=== PATIENT | female | born 1975 | race African-American/Black ===

== ENCOUNTER 2018-08-06 09:58 | Emergency (ER) | payer OTHER ==
[~2018-08-06] VITALS: Ht 172.7 cm; Wt 104.3 kg
--- OUTSIDE RECORDS SUMMARY | 2018-08-06 10:02 | XMS REPORT | Clinical Summary ---
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 Active amLODIPine (NORVASC) 5 mg Take 1 tablet 90 tablet 0 tabletIndications: by mouth 8 Essential hypertension daily. 02/02/2018 Discontinued azelastine (OPTIVAR) 0.05 Instill 1 6 mL 1 % ophthalmic Drop in right 6 solutionIndications: eye 2 times Allergic conjunctivitis daily. and rhinitis, right 02/02/2018 Discontinued ergocalciferol (VITAMIN Take 1 24 capsule 0 D2) 50,000 unit capsule by 7 capsuleIndications: mouth weekly. Vitamin D deficiency 02/02/2018 Discontinued chlorhexidine (PERIDEX) Swish with 473 mL 0 0.12 % mouth 1/2 oz of 7 washIndications: solution in Dentalgia, Dental caries mouth for 30 seconds and spit. Use twice daily.. 02/02/2018 Discontinued ibuprofen (MOTRIN) 800 mg Take 1 tablet 60 tablet 0 tabletIndications: by mouth 7 Dentalgia every 8 hours as needed for Pain or Fever > 100.5. 02/02/2018 Discontinued amoxicillin (AMOXIL) 500 Take 4 16 capsule 0 mg capsuleIndications: capsules by 7 Pulpitis mouth one hour prior to dental appt. 02/02/2018 Discontinued traMADol (ULTRAM) 50 mg Take 1 tablet 15 tablet 0 tabletIndications: by mouth 7 Pulpitis every 6 hours as needed for Pain. 01/16/2018 Discontinued hydroCHLOROthiazide Take 1 90 capsule 0 (MICROZIDE) 12.5 mg capsule by 8 capsuleIndications: mouth every Essential hypertension morning. 05/18/2018 Discontinued metoprolol succinate Take 1 tablet 90 tablet 0 (TOPROL XL) 25 mg by mouth 8 extended release daily. tabletIndications: Essential hypertension, MVP (mitral valve prolapse) 05/18/2018 Discontinued hydroCHLOROthiazide Take 1 tablet 90 tablet 2 (HYDRODIURIL) 25 mg by mouth 8 tabletIndications: daily. Essential hypertension 02/12/2018 ofloxacin (FLOXIN) 0.3 % Instill 5 5 mL 0 otic solutionIndications: Drops in 8 Acute otitis externa of right ear 2 right ear, unspecified times daily type for 10 days. 05/18/2018 Discontinued ibuprofen (MOTRIN) 800 mg Take 1 tablet 30 tablet 0 tabletIndications: by mouth 8 Otalgia of right ear every 8 hours as needed for Pain. 04/07/2018 amoxicillin (AMOXIL) 500 Take 1 30 capsule 0 mg capsuleIndications: capsule by 8 Dentalgia mouth 3 times daily for 10 days. Active Problems Problem Noted Date Mitral valve prolapse 08/17/2016 Varicose vein of leg 08/17/2016 Vitamin D deficiency 08/17/2016 Essential hypertension, benign 08/22/2015 Obesity, Class II, BMI 35-39.9 12/15/2014 HTN (hypertension) 12/15/2014 Encounters Care Team Description Date Type Specialty Raffy De La Garza MD History of pneumonia 05/18/2018 Ancillary Radiology Procedure Raffy De La Garza MD History of pneumonia (Primary Dx); Heart murmur; Essential hypertension; PVC (premature ventricular contraction) 05/18/2018 Office Visit Family Practice 05/18/2018 Travel Claudia Ching PA Dentalgia (Primary Dx) 03/28/2018 Office Visit Family Practice Otoniel Obregon, [employer]OCATIONAL ADVISER Acute otitis externa of right ear, unspecified type (Primary Dx); Otalgia of right ear 02/02/2018 Same Day Family Practice Raffy De La Garza MD Malone, Shanique T, PA Essential hypertension (Primary Dx); Mild anemia; BMI 34.0-34.9,adult 01/30/2018 Office Visit Family Practice Valorie Craven PA History of pulmonary edema 01/16/2018 Ancillary Radiology Procedure Valorie Craven PA Essential hypertension (Primary Dx); Mitral valve prolapse; Varicose veins of leg with pain, right; Screening breast examination; History of pulmonary edema 01/16/2018 Office Visit Family Practice Valorie Craven PA Varicose veins of leg with pain, right 01/16/2018 Orders Only Family Practice 09/25/2017 Emergency Emergency Medicine after 08/05/2017 Immunizations Name Dates Previously Given Next Due Influenza Vac (Fluarix) 05/05/2015 (Deferred: Patient Refused) Influenza Vaccine 03/28/2018 (Deferred: Other) Family History Medical History Relation Name Comments Asthma Daughter Hypertension Father Hypertension Mother Relation Name Status Comments Brother Alive 2 Daughter Alive 1 Daughter Father Alive Mother Alive Sister Alive 3 Sister 1 Son Alive 3 Social History Date Tobacco Use Types Packs/Day Years Used Never Smoker Smokeless Tobacco: Never Used Tobacco Cessation: Counseling Given: No Alcohol Use Drinks/Week oz/Week Comments Yes 0 Standard 0.0 occasional drinks or equivalent Sex Assigned at Date Recorded Not on file Industry Job Start Date Occupation Not on file Not on file Not on file Travel End Travel History Travel Start No recent travel history available. Last Filed Vital Signs Time Taken Vital Sign Reading 05/18/2018 9:53 AM [employer] Blood Pressure 132/87 05/18/2018 9:53 AM [employer] Pulse 62 05/18/2018 9:53 AM [employer] Temperature 36.8 C (98.3 F) 05/18/2018 9:53 AM [employer] Respiratory Rate 18 03/28/2018 9:00 AM [employer] Oxygen Saturation 100% - Inhaled Oxygen - Concentration 05/18/2018 9:53 AM [facility] Weight 103 kg (227 lb) 05/18/2018 9:53 AM [employer] Height 172.7 cm (5' 8") 05/18/2018 9:53 AM [employer] Body Mass Index 34.52 Plan of Treatment Care Team Description Date Type Specialty Raffy De La Garza MD [place], [place] [id number] Patient working in the [facility], has been cough and vomitting 08/10/2018 Office Visit Family Practice 09/29/2018 Appointment Cardiology Health Maintenance Due Date Last Done Comments Breast Cancer Scrn 10/20/2015 10/19/2014, 10/29/2012 (Yearly) Cervical Cancer Scrn (3 10/23/2015 10/22/2012 (Previously completed - Yrs) External), 10/16/2012 Procedures Comments Procedure Name Priority Date/Time Associated Diagnosis XRAY CHEST 2 VIEWS Routine 05/18/2018 History of pneumonia 11:15 AM [employer] XRAY CHEST 2 VIEWS Routine 01/16/2018 History of pulmonary 1:25 PM CDT edema HIV-1/HIV-2 ROUTINE Routine 01/16/2018 Essential hypertension SCREENING 1:16 PM CDT SYPHILIS MONITOR FOR Routine 01/16/2018 Essential hypertension TREATMENT 1:16 PM CDT HEPATITIS PANEL Routine 01/16/2018 Essential hypertension 1:16 PM CDT CBC/DIFF Routine 01/16/2018 Essential hypertension 1:16 PM CDT TSH Routine 01/16/2018 Essential hypertension 1:16 PM CDT COMPREHENSIVE METABOLIC Routine 01/16/2018 Essential hypertension PANEL(DBIL NOT INCLUDED) 1:16 PM CDT LIPID PROFILE Routine 01/16/2018 Essential hypertension 1:16 PM CDT HEMOGLOBIN A1C Routine 01/16/2018 Essential hypertension 1:16 PM CDT B NATRIURETIC PEPT Routine 01/16/2018 Mitral valve prolapse 1:15 PM CDT after 08/05/2017 Results * XRAY CHEST 2 VIEWS (05/18/2018 11:15 AM [employer] [employer]) Only the most recent of 2 results within the time period is included. Impressions Performed At IMPRESSION: [facility] Stable cardiomegaly. Dictated By: Nathanael Abbott MD, 05/18/2018 11:34 AM I have reviewed the study and agree with the findings in this report. Signed By: Kami Sykes MD, 05/18/2018 2:48 PM Narrative Performed At EXAMINATION:XRAY CHEST 2 VIEWS SMS INDICATION: history of pneumonia COMPARISON:Chest radiograph 01/16/2018, chest CT 01/02/2009, chest radiograph 05/04/2009 FINDINGS: TUBES and LINES:None. LUNGS:Lungs are well inflated.Lungs are clear. There is no evidence of pneumonia or pulmonary edema. PLEURA:No pleural effusion or pneumothorax. HEART AND MEDIASTINUM:The cardiomediastinal silhouette is enlarged. BONES AND SOFT TISSUES:No acute osseous lesion. Mild multilevel degenerative changes of the thoracic spine. Soft tissues are unremarkable. UPPER ABDOMEN: No free air under the diaphragm. Procedure Note Interface, Rad/Mammog In - 05/18/2018 2:53 PM [employer] [employer] EXAMINATION: XRAY CHEST 2 VIEWS INDICATION: history of pneumonia COMPARISON: Chest radiograph 01/16/2018, chest CT 01/02/2009, chest radiograph 05/04/2009 FINDINGS: TUBES and LINES: None. LUNGS: Lungs are well inflated. Lungs are clear. There is no evidence of pneumonia or pulmonary edema. PLEURA: No pleural effusion or pneumothorax. HEART AND MEDIASTINUM: The cardiomediastinal silhouette is enlarged. BONES AND SOFT TISSUES: No acute osseous lesion. Mild multilevel degenerative changes of the thoracic spine. Soft tissues are unremarkable. UPPER ABDOMEN: No free air under the diaphragm. IMPRESSION IMPRESSION: Stable cardiomegaly. Dictated By: Nathanael Abbott MD, 05/18/2018 11:34 AM I have reviewed the study and agree with the findings in this report. Signed By: Kami Sykes MD, 05/18/2018 2:48 PM Performing Organization Address City/[facility] Phone Number SMS * HIV-1/HIV-2 ROUTINE SCREENING (01/16/2018 1:16 PM CDT) HIV-1/HIV-2 Negative NEG BT MAIN-STATION 3 Performing Organization Address City/[facility] Services[facility] Phone Number [facility] BT MAIN-STATION 3 * HEMOGLOBIN A1C (01/16/2018 1:16 PM CDT) Hemoglobin A1c 5.5 4.3 - 6.1 % BT DIAGNOSTIC IMMUNOLOGY Est Average 111.2 mg/dL BT DIAGNOSTIC Gluc IMMUNOLOGY Specimen Blood Performing Organization Address [facility] Servicescoks Phone Number MISYS BT DIAGNOSTIC IMMUNOLOGY * COMPREHENSIVE METABOLIC PANEL(DBIL NOT INCLUDED) (01/16/2018 1:16 PM CDT) Albumin 4.6 3.7 - 5.3 g/dL BT MAIN-STATION 1 Calcium 8.9 8.6 - 10.3 mg/dL BT MAIN-STATION 1 CO2 23 21 - 31 mmol/L BT MAIN-STATION 1 Chloride 107 98 - 107 mmol/L BT MAIN-STATION 1 Creatinine 0.80 0.6 - 1.2 mg/dL BT MAIN-STATION 1 Glucose 78 70 - 110 mg/dL BT MAIN-STATION 1 Alk Phos 45 34 - 104 U/L BT MAIN-STATION 1 Potassium 4.7 3.5 - 5.1 mmol/L BT MAIN-STATION 1 Sodium 139 136 - 145 mmol/L BT MAIN-STATION 1 ALT 10 7 - 52 U/L BT MAIN-STATION 1 AST 13 13 - 39 U/L BT MAIN-STATION 1 Urea Nitrogen 9 7 - 25 mg/dL BT MAIN-STATION 1 T Bilirubin 0.7 0.2 - 1.2 mg/dL BT MAIN-STATION 1 T Protein 8.1 6.0 - 8.3 g/dL BT MAIN-STATION 1 GFR, Estimated >60 mL/min/1.73 m2 BT MAIN-STATION 1 GFR, Estim, >60 mL/min/1.73 m2 BT MAIN-STATION Afr-Am 1 Anion Gap 9 BT MAIN-STATION 1 Specimen Blood Performing Organization Address [facility] Phone Number [facility] MAIN-STATION 1 * TSH (01/16/2018 1:16 PM CDT) TSH 2.34 0.57 - 3.74 uIU/mL BT MAIN-STATION 1 Specimen Blood Performing Organization Address [facility] Phone Number [facility] MAIN-STATION 1 * SYPHILIS MONITOR FOR TREATMENT (01/16/2018 1:16 PM CDT) RPR Nonreactive NR Titer BT DIAGNOSTIC IMMUNOLOGY Specimen Blood Performing Organization Address [facility] Phone Number [facility] DIAGNOSTIC IMMUNOLOGY * LIPID PROFILE (01/16/2018 1:16 PM CDT) Cholesterol 183 mg/dL BT MAIN-STATION Comment: 1 REFERENCE RANGE: Desirable: <200 mg/dL Borderline: 200-240 mg/dL High Risk: >240 mg/dL Triglyceride 102 <150 mg/dL BT MAIN-STATION Comment: 1 REFERENCE RANGE: Normal: <150 mg/dL Borderline High: 150-199 mg/dL High: 200-499 mg/dL Very High: >pa=524 mg/dL HDL 67 mg/dL BT MAIN-STATION Comment: 1 Increased CHD risk: <40 mg/dL Decreased CHD risk: >60 mg/dL LDL 96 mg/dL BT MAIN-STATION Comment: 1 REFERENCE RANGE: Optimal: <100 mg/dL Near Optimal: 100-129 mg/dL Borderline High: 130-159 mg/dL High: 160-189 mg/dL Very High: >tp=231 mg/dL Specimen Blood Performing Organization Address [facility] Phone Number [facility] * HEPATITIS PANEL (01/16/2018 1:16 PM CDT) HCV IgG Negative NEG BT MAIN-STATION 3 HBsAg Negative NEG BT MAIN-STATION 3 HAV, IgM Negative NEG BT MAIN-STATION 3 HBcAb, IgM Negative NEG BT MAIN-STATION 3 Specimen Blood Performing Organization Address [facility] Phone Number [facility] * CBC/DIFF (01/16/2018 1:16 PM CDT) WBC 5.3 4.5 - 11.0 K/uL BT MAIN-STATION 2 RBC 4.22 4.20 - 5.40 M/uL BT MAIN-STATION 2 Hemoglobin 11.8 (L) 12.0 - 16.0 g/dL BT MAIN-STATION 2 Hematocrit 38.7 37.0 - 47.0 % BT MAIN-STATION 2 MCV 92 82 - 92 fL BT MAIN-STATION 2 MCH 28.0 27.0 - 32.0 pg BT MAIN-STATION 2 MCHC 30.5 (L) 32.0 - 36.0 g/dL BT MAIN-STATION 2 RDW 45.7 36.4 - 46.3 fL BT MAIN-STATION 2 Platelet 224 150 - 400 K/uL BT MAIN-STATION 2 Mean Platelet 11.7 9.4 - 12.4 fL BT MAIN-STATION Volume 2 Percent NRBC 0.0 BT MAIN-STATION 2 Absolute NRBC 0.00 BT MAIN-STATION 2 Neutrophil 37.8 34.0 - 70.0 % BT MAIN-STATION 2 Lymphocyte 46.3 20.0 - 50.0 % BT MAIN-STATION 2 Monocyte 9.9 5.0 - 12.0 % BT MAIN-STATION 2 Eosinophil 5.1 (H) 0.7 - 5.0 % BT MAIN-STATION 2 Basophil 0.7 0.1 - 1.2 % BT MAIN-STATION 2 Pct Immat Gran 0.2 0.0 - 0.5 BT MAIN-STATION 2 Neutrophil, Abs 2.02 1.56 - 6.13 K/uL BT MAIN-STATION 2 Lymphocyte, Abs 2.47 1.18 - 3.74 K/uL BT MAIN-STATION 2 Monocyte, Abs 0.53 (H) 0.24 - 0.36 K/uL BT MAIN-STATION 2 Eosinophil, Abs 0.27 0.04 - 0.36 K/uL BT MAIN-STATION 2 Basophil, Abs 0.04 0.01 - 0.08 K/uL BT MAIN-STATION 2 Absol Immat 0.01 0.00 - 0.03 K/uL BT MAIN-STATION Gran 2 Specimen Blood Performing Organization Address City/State/Zipcode Phone Number [facility] BT MAIN-STATION 2 * B NATRIURETIC PEPT (01/16/2018 1:15 PM CDT) B Natriuretic 42 <101 pg/mL BT MAIN-STATION Pept 1 Specimen Blood Performing Organization Address City/State/Zipcode Phone Number [facility] BT MAIN-STATION 1 after 08/05/2017 Insurance Type Payer Benefit Subscriber ID Effective Phone Address Plan / Dates Group [employer] PLAN H[employer] PLAN xxxxxx 2017- [phone] [id number] [place] [address]
--- OUTSIDE RECORDS SUMMARY | 2018-08-06 10:03 | XMS REPORT | Continuity of Care Document ---
Author Author [facility] Interface Address Unknown Phone Unavailable Problems Problem Status Onset Date Classification Date Reported Comments Source SOB Active 05/08/2018 [facility] Acute lumbar radiculopathy 09/25/2017 09/28/2017 [facility] RIGHT LEG PAIN Active 09/25/2017 [facility] Hypertensive heart disease with heart failure 07/25/2017 10/22/2017 [facility] CHF, CHEST PAIN Active 07/14/2017 [facility] CP, SOB Active 07/14/2017 [facility] Discharge Diagnosis: Acute head injury 04/28/2017 05/01/2017 [facility] Discharge Diagnosis: Acute headache 04/28/2017 05/01/2017 [facility] HEAD PAIN Active 04/28/2017 [facility] Mitral valve prolapse Active 08/17/2016 06/22/2018 [facility] Varicose vein of leg Active 08/17/2016 06/22/2018 [facility] Vitamin D deficiency Active 08/17/2016 06/22/2018 [facility] Discharge Diagnosis: Dizziness and giddiness 07/05/2016 07/08/2016 [facility] DIZZINESS Active 07/05/2016 [facility] UNSTABLE ANGINA Active 11/09/2015 [facility] VOMITING Active 11/09/2015 [facility] Discharge Diagnosis: Unspecified abdominal pain 09/05/2015 09/08/2015 [facility] RT BACK PAIN Active 09/05/2015 [facility] Essential hypertension, benign Active 08/22/2015 06/22/2018 [facility] Obesity, Class II, BMI 35-39.9 Active 12/15/2014 06/22/2018 [facility] HTN Active 12/15/2014 06/22/2018 [facility] Discharge Diagnosis: Ankle pain, left 02/06/2014 02/08/2014 [facility] LEG PAIN Active 02/06/2014 [facility] SHOULDER PAIN Active 04/19/2013 [facility] HAND INJURY Active 02/05/2013 [facility] LEFT UPPER SIDE PAIN Active 11/04/2012 [facility] ARM PAIN Active 02/11/2012 [facility] CHEST PAIN, SOB Active 01/28/2011 [facility] History of pneumonia Active 06/22/2018 [facility] Heart murmur Active 06/22/2018 [facility] Essential hypertension Active 06/22/2018 [facility] PVC Active 06/22/2018 [facility] Dentalgia Active 06/22/2018 [facility] Acute otitis externa of right ear, unspecified type Active 06/22/2018 [facility] Otalgia of right ear Active 06/22/2018 [facility] Mild anemia Active 06/22/2018 [facility] BMI 34.0-34.9,adult Active 06/22/2018 [facility] History of pulmonary edema Active 06/22/2018 [facility] Varicose veins of leg with pain, right Active 06/22/2018 [facility] Screening breast examination Active 06/22/2018 [facility] MVP Active 06/22/2018 [facility] HTN - Hypertension Resolved Problem 10/22/2017 [facility] Heart failure, unspecified 10/22/2017 [facility] HTN - Hypertension Resolved Problem 02/07/2013 [facility] Mitral valve prolapse Resolved Problem 02/07/2013 [facility] ANGINA PECTORIS, UNSPECIFIED Active [facility] HEART FAILURE, UNSPECIFIED Active [facility] CHEST PAIN, UNSPECIFIED Active [facility] Medications Medication Details Route Status Patient Instructions Ordering Provider Order Date Source amLODIPine (NORVASC) 5 mg tablet Take 1 tablet by mouth daily. Oral Active 05/18/2018 [facility] amoxicillin (AMOXIL) 500 mg capsule Take 1 capsule by mouth 3 times daily for 10 days. Oral No Longer Active 03/28/2018 [facility] traMADol (ULTRAM) 50 mg tablet Take 1 tablet by mouth every 6 hours as needed for Pain. Oral Active 03/28/2018 [facility] ofloxacin (FLOXIN) 0.3 % otic solution Instill 5 Drops in right ear 2 times daily for 10 days. No Longer Active 02/02/2018 [facility] ibuprofen (MOTRIN) 800 mg tablet Take 1 tablet by mouth every 8 hours as needed for Pain. Oral No Longer Active 02/02/2018 [facility] hydroCHLOROthiazide (HYDRODIURIL) 25 mg tablet Take 1 tablet by mouth daily. Oral No Longer Active 01/16/2018 [facility] Diazepam 5 MG Oral Tablet [Valium] 5 mg=1 tab, PO, BID, PRN msk spasm, X 5 day, # 10 tab, 0 Refill(s) Active 09/25/2017 [facility] Acetaminophen 300 MG / Codeine Phosphate 30 MG Oral Tablet [Tylenol with Codeine #3] 1 tab, PO, Q6H, PRN Pain Score 4-6, X 5 day, # 30 tab, 0 Refill(s) Active 09/25/2017 [facility] Motrin 800 mg oral tablet 800 mg=1 tab, PO, Q8H, PRN Pain, Take with food, X 10 day, # 30 tab, 0 Refill(s) Active 09/25/2017 [facility] ketOROLAC 30 mg/mL injectable solution 60 mg, Route: IM, ONCE, Dosing Weight 95.455, kg, Start date: 09/25/17 6:34:00 CDT, Stop date: 09/25/17 6:34:00 CDT Inactive 09/25/2017 [facility] Dexamethasone 10 mg, Route: IM, ONCE, Dosing Weight 95.455, kg, Priority: STAT, Start date: 09/25/17 6:16:00 CDT, Stop date: 09/25/17 6:16:00 CDT Inactive 09/25/2017 [facility] Ketorolac 30 mg, Route: IVP, Drug form: INJ, ONCE, Dosing Weight 95.455, kg, Priority: STAT, Start date: 09/25/17 6:16:00 CDT, Stop date: 09/25/17 6:16:00 CDT Inactive 09/25/2017 [facility] metoprolol succinate (TOPROL XL) 25 mg extended release tablet Take 1 tablet by mouth daily. Oral No Longer Active 07/30/2017 [facility] hydroCHLOROthiazide (MICROZIDE) 12.5 mg capsule Take 1 capsule by mouth every morning. Oral No Longer Active 07/18/2017 [facility] Furosemide 20 MG Oral Tablet [Lasix] 20 mg=1 tab, PO, Daily, # 30 tab, 2 Refill(s), Pharmacy: [facility] [id number] Active 07/16/2017 [facility] Lasix 40 mg, 4 mL, Route: IV, Drug form: INJ, TID, Dosing Weight 96.449, kg, Start date: 07/16/17 13:00:00 [facility], Duration: 30 day, Stop date: 08/15/17 9:00:00 CDTNotes: (Same as: Lasix) MEDICATION WASTE Product Size: 40 mg Product Wasted: ___ mg Inactive 07/16/2017 [facility] Tylenol 650 mg, 2 tab, Route: PO, Drug form: TAB, Q6H, Dosing Weight 96.449, kg, PRN Pain Score 1-3, Start date: 07/16/17 9:56:00 [facility] [place], Duration: 30 day, Stop date: 08/15/17 9:55:00 CDTNotes: Do not exceed 4 gm/day. (Same as: Tylenol) Inactive 07/16/2017 [facility] metoprolol tartrate 25 mg, 1 tab, Route: PO, Drug form: TAB, Q12H, Dosing Weight 96.449, kg, Start date: 07/15/17 9:00:00 [facility] [place], Duration: 30 day, Stop date: 08/13/17 21:00:00 CDTNotes: (Same as: Lopressor) No Longer Active 07/15/2017 [facility] Famotidine 20 MG Oral Tablet 20 mg, 1 tab, Route: PO, Drug form: TAB, BID, Dosing Weight 96.449, kg, Start date: 07/15/17 9:00:00 [facility] [place], Duration: 30 day, Stop date: 08/13/17 17:00:00 CDTNotes: (Same as: Pepcid) No Longer Active 07/15/2017 [facility] Plavix 75 mg, 1 tab, Route: PO, Drug form: TAB, Daily, Dosing Weight 96.449, kg, Start date: 07/15/17 9:00:00 [facility], Duration: 30 day, Stop date: 08/13/17 9:00:00 CDTNotes: (Same As: Plavix) Inactive 07/15/2017 [facility] Aspirin Enteric Coated 325 mg, 1 tab, Route: PO, Drug form: ECTAB, Daily, Dosing Weight 96.449, kg, Start date: 07/15/17 9:00:00 [facility] [place], Duration: 30 day, Stop date: 08/13/17 9:00:00 CDTNotes: (Do Not Crush) Do not crush or chew. No Longer Active 07/15/2017 [facility] Saline Flush 0.9% 10 ml, Route: IVP, Drug Form: INJ, Dosing Weight 96.449, kg, Q12H, Start date: 07/15/17 9:00:00 [facility] [place], Duration: 30 day, Stop date: 08/13/17 21:00:00 CDTNotes: (Same as: BD Posiflush) No Longer Active 07/15/2017 [facility] Aspirin 81 MG Chewable Tablet 81 mg, Route: PO, Drug form: CHEWTAB, Daily, Dosing Weight 96.449, kg, Start date: 07/15/17 9:00:00 [facility] [place], Duration: 30 day, Stop date: 08/13/17 9:00:00 CDT Inactive 07/15/2017 [facility] Lasix 40 mg, 4 mL, Route: IV, Drug form: INJ, Q12H, Dosing Weight 96.449, kg, Start date: 07/15/17 9:00:00 [facility] [place], Duration: 30 day, Stop date: 08/13/17 21:00:00 CDTNotes: (Same as: Lasix) MEDICATION WASTE Product Size: 40 mg Product Wasted: ___ mg No Longer Active 07/15/2017 [facility] morphine Sulfate 6 mg, 3 mL, Route: PO, Drug form: SOLN, Q15Min, PRN Chest Pain, Start date: 07/15/17 7:57:00 [facility], Duration: 2 doses or times, Stop date: 08/14/17 7:56:00 CDTNotes: (Same as:MORPhine Sulfate) No Longer Active 07/15/2017 [facility] Saline Flush 0.9% 10 ml, Route: IVP, Drug Form: INJ, Dosing Weight 96.449, kg, PRN, PRN Line Flush, Start date: 07/15/17 6:52:00 [facility] [place], Duration: 30 day, Stop date: 08/14/17 7:51:00 CDTNotes: (Same as: BD Posiflush) No Longer Active 07/15/2017 [facility] Ondansetron 4 mg, 1 tab, Route: PO, Drug form: TAB, Q8H, Dosing Weight 96.449, kg, PRN Nausea & Vomiting, Start date: 07/15/17 6:52:00 [facility], Duration: 30 day, Stop date: 08/14/17 6:51:00 CDTNotes: (Same as: Zofran) No Longer Active 07/15/2017 [facility] Morphine 2 mg, Route: IVP, Q15Min, Dosing Weight 96.449, kg, PRN Chest Pain, Start date: 07/15/17 6:52:00 [facility] [place], Duration: 2 doses or times, Stop date: Limited # of times Inactive 07/15/2017 [facility] Nitroglycerin 0.4 mg, 1 tab, Route: SL, Drug form: TAB, Q5Min, Dosing Weight 96.449, kg, PRN Chest Pain, Start date: 07/15/17 6:52:00 [facility], Duration: 3 doses or times, Stop date: 08/14/17 6:51:00 CDTNotes: (Same as :Nitroquick, Nitrostat) "Do Not Crush" Sublingual tablet No Longer Active 07/15/2017 [facility] Fentanyl 50 microgram, Route: IV, ONCE, Dosing Weight 95.455, kg, Start date: 07/15/17 6:00:00 [facility], Stop date: 07/15/17 6:00:00 [facility] Inactive 07/15/2017 [facility] Aspirin 81 MG Chewable Tablet 324 mg, Route: PO, Drug form: CHEWTAB, ONCE, Dosing Weight 95.455, kg, Priority: STAT, Start date: 07/15/17 2:44:00 [facility], Stop date: 07/15/17 2:44:00 [facility] Inactive 07/15/2017 [facility] Lasix 40 mg, Route: IVP, Drug form: INJ, ONCE, Dosing Weight 95.455, kg, Priority: STAT, Start date: 07/15/17 2:30:00 [facility] [place], Stop date: 07/15/17 2:30:00 [facility] Inactive 07/15/2017 [facility] Fentanyl 50 microgram, Route: IVP, ONCE, Dosing Weight 95.455, kg, Priority: STAT, Start date: 07/15/17 0:35:00 [facility] [place], Stop date: 07/15/17 0:35:00 [facility] Inactive 07/15/2017 [facility] Acetaminophen 325 MG / butalbital 50 MG / Caffeine 40 MG Oral Tablet [Esgic] 1 tab, PO, Q4H, PRN Pain, Not to exceed more than 6 tablets in 24 hours, X 2 day, # 12 tab, 0 Refill(s) No Longer Active 04/29/2017 [facility] Diflucan 150 mg, 3 tab, Route: PO, Drug form: TAB, ONCE, Dosing Weight 100, kg, Start date: 04/28/17 18:05:00 [facility] [place], Stop date: 04/28/17 18:05:00 CSTNotes: (Same as: Diflucan) Inactive 04/29/2017 [facility] Reglan 10 mg, 2 mL, Route: IVP, Drug form: SOLN, ONCE, Dosing Weight 100, kg, Priority: STAT, Start date: 04/28/17 17:51:00 [facility], Stop date: 04/28/17 17:51:00 CSTNotes: (Same as: Reglan) Inactive 04/28/2017 [facility] NS (Bolus) IV 1,000 mL, 1,000 ml/hr, Infuse Over: 1 hr, Route: IV, 1,000, Drug form: INJ, ONCE, Priority: STAT, Dosing Weight 100 kg, Start date: 04/28/17 17:51:00 [facility] [place], Stop date: 04/28/17 17:51:00 [facility] Inactive 04/28/2017 [facility] ketOROLAC 30 mg/mL injectable solution 30 mg, 1 mL, Route: IV, Drug form: INJ, ONCE, Dosing Weight 100, kg, Start date: 04/28/17 17:51:00 [facility] [place], Stop date: 04/28/17 17:51:00 CSTNotes: (Same as:Toradol) IV bolus must be given >15 seconds. Give IM administration slowly and deeply into the muscle. Not for use > 4 days MEDICATION WASTE Product Size: 30 mg Product Wasted: ___ mg Inactive 04/28/2017 [facility] Benadryl 12.5 mg, 0.25 mL, Route: IVP, Drug form: INJ, ONCE, Dosing Weight 100, kg, Priority: STAT, Start date: 04/28/17 17:51:00 [facility], Stop date: 04/28/17 17:51:00 CSTNotes: (Same as: Benadryl) Inactive 04/28/2017 [facility] amoxicillin (AMOXIL) 500 mg capsule Take 4 capsules by mouth one hour prior to dental appt. No Longer Active 10/21/2016 [facility] traMADol (ULTRAM) 50 mg tablet Take 1 tablet by mouth every 6 hours as needed for Pain. Oral No Longer Active 10/21/2016 [facility] chlorhexidine (PERIDEX) 0.12 % mouth wash Swish with 1/2 oz of solution in mouth for 30 seconds and spit. Use twice daily.. No Longer Active 09/19/2016 [facility] ibuprofen (MOTRIN) 800 mg tablet Take 1 tablet by mouth every 8 hours as needed for Pain or Fever > 100.5. Oral No Longer Active 09/19/2016 [facility] ergocalciferol (VITAMIN D2) 50,000 unit capsule Take 1 capsule by mouth weekly. Oral No Longer Active 08/16/2016 [facility] hydroCHLOROthiazide (MICROZIDE) 12.5 mg capsule Take 1 capsule by mouth every morning. Oral No Longer Active 07/10/2016 [facility] metoprolol succinate (TOPROL XL) 25 mg extended release tablet Take 1 tablet by mouth daily. Oral No Longer Active 07/10/2016 [facility] meclizine 25 mg oral tablet 25 mg=1 tab, PO, TID, PRN for dizziness, X 20 day, # 60 tab, 0 Refill(s) Active 07/06/2016 [facility] Meclizine 50 mg, Route: PO, Drug form: TAB, ONCE, Dosing Weight 100, kg, Priority: STAT, Start date: 07/05/16 17:33:00 [facility] [place], Stop date: 07/05/16 17:33:00 [facility] Inactive 07/05/2016 [facility] Furosemide 40 MG Oral Tablet [Lasix] 20 mg, 1 tab, Route: PO, Drug form: TAB, Daily, Dosing Weight 96.903, kg, Priority: Routine, Start date: 11/11/15 9:00:00 CDT, Duration: 30 day, Stop date: 12/10/15 9:00:00 CDTNotes: (Same as: Lasix) May cause GI upset. Give with food or milk. No Longer Active 11/11/2015 [facility] metoprolol tartrate 25 mg, 1 tab, Route: PO, Drug form: TAB, Q12H, Dosing Weight 96.903, kg, Priority: Routine, Start date: 11/10/15 21:00:00 CDT, Duration: 30 day, Stop date: 12/10/15 9:00:00 CDTNotes: (Same as: Lopressor) Inactive 11/11/2015 [facility] Pepcid 20 mg, 1 tab, Route: PO, Drug form: TAB, BID, Dosing Weight 96.903, kg, Start date: 11/10/15 17:00:00 CDT, Duration: 30 day, Stop date: 12/10/15 9:00:00 CDTNotes: (Same as: Pepcid) Inactive 11/10/2015 [facility] clopidogrel 75 MG Oral Tablet [Plavix] 75 mg=1 tab, PO, Daily, # 30 tab, 0 Refill(s) Active 11/10/2015 [facility] Aspirin Enteric Coated 325 mg oral delayed release tablet 325 mg=1 tab, PO, Daily, # 30 tab, 0 Refill(s) Active 11/10/2015 [facility] metoprolol tartrate 25 mg oral tablet 25 mg=1 tab, PO, Q12H, # 60 tab, 0 Refill(s) Active 11/10/2015 [facility] Furosemide 20 MG Oral Tablet [Lasix] 20 mg=1 tab, PO, Daily, # 30 tab, 0 Refill(s) Active 11/10/2015 [facility] Famotidine 20 MG Oral Tablet 20 mg=1 tab, PO, BID, # 60 tab, 0 Refill(s) Active 11/10/2015 [facility] Lasix 40 mg, 4 mL, Route: IVP, Drug form: INJ, ONCE, Dosing Weight 96.903, kg, Priority: STAT, Start date: 11/10/15 8:43:00 CDT, Stop date: 11/10/15 8:43:00 CDTNotes: (Same as: Lasix) MEDICATION WASTE Product Size: 40 mg Product Wasted: ___ mg Inactive 11/10/2015 [facility] remove patch Route: TOP, Drug form: MISC, Q24H, Start date: 11/10/15 0:00:00 CDT, Duration: 30 day, Stop date: 12/09/15 0:00:00 CDT Inactive 11/10/2015 [facility] Lasix 40 mg, 4 mL, Route: IVP, Drug form: INJ, Daily, Dosing Weight 96.903, kg, Priority: STAT, Start date: 11/09/15 12:20:00 CDT, Duration: 30 day, Stop date: 12/09/15 9:00:00 CDTNotes: (Same as: Lasix) MEDICATION WASTE Product Size: 40 mg Product Wasted: ___ mg No Longer Active 11/09/2015 [facility] Nitroglycerin 0.02 MG/MG Topical Ointment 0.5 inch, Route: TOP, Drug Form: OINT, Dosing Weight 96.903, kg, TID, Start date: 11/09/15 12:00:00 CDT, Duration: 30 day, Stop date: 12/09/15 6:00:00 CDTNotes: 1 gram is approximately 1 inch of nitroglycerin ointment (20 mg NTG per gram) (Same as:Nitro-Bid) Inactive 11/09/2015 [facility] metoprolol extended release 25 mg, 1 tab, Route: PO, Drug form: ERTAB, Daily, Priority: NOW, Start date: 11/09/15 11:06:00 CDT, Duration: 30 day, Stop date: 12/09/15 9:00:00 CDTNotes: (Same as: Toprol XL) Do Not Crush No Longer Active 11/09/2015 [facility] Pepcid 20 mg, 2 mL, Route: IVP, Drug form: INJ, Q12H, Dosing Weight 96.903, kg, Start date: 11/09/15 9:00:00 CDT, Duration: 30 day, Stop date: 12/08/15 21:00:00 CDTNotes: (Same as: Pepcid) Can be dilute in 5-10cc NS IVP: Slow IV push over at least 2 minutes. No Longer Active 11/09/2015 [facility] Saline Flush 0.9% 10 ml, Route: IVP, Drug Form: INJ, Dosing Weight 96.903, kg, Q12H, Start date: 11/09/15 9:00:00 CDT, Duration: 30 day, Stop date: 12/08/15 21:00:00 CDTNotes: Same as: BD Posiflush Sterile No Longer Active 11/09/2015 [facility] Aspirin 325 MG Oral Tablet 325 mg, 1 tab, Route: PO, Drug form: TAB, Daily, Dosing Weight 96.903, kg, Start date: 11/09/15 9:00:00 CDT, Duration: 30 day, Stop date: 12/08/15 9:00:00 CDTNotes: Take with food. No Longer Active 11/09/2015 [facility] Tylenol 650 mg, 2 tab, Route: PO, Drug form: TAB, Q6H, Dosing Weight 96.903, kg, PRN Pain Score 1-3, Start date: 11/09/15 8:14:00 CDT, Duration: 30 day, Stop date: 12/09/15 8:13:00 CDTNotes: Do not exceed 4 gm/day. (Same as: Tylenol) No Longer Active 11/09/2015 [facility] Zofran 4 mg, 1 tab, Route: PO, Drug form: TAB, Q8H, Dosing Weight 96.903, kg, PRN Nausea, Start date: 11/09/15 8:13:00 CDT, Duration: 30 day, Stop date: 12/09/15 8:12:00 CDTNotes: (Same as: Zofran) No Longer Active 11/09/2015 [facility] Zofran 4 mg, 2 mL, Route: IV, Drug form: INJ, Q8H, Dosing Weight 96.903, kg, PRN Nausea, Priority: NOW, Start date: 11/09/15 8:11:00 CDT, Duration: 30 day, Stop date: 12/09/15 8:10:00 CDTNotes: (Same as: Zofran) MEDICATION WASTE Product Size: 4 mg Product Wasted: ___ mg No Longer Active 11/09/2015 [facility] Saline Flush 0.9% 10 ml, Route: IVP, Drug Form: INJ, Dosing Weight 96.903, kg, PRN, PRN Line Flush, Start date: 11/09/15 8:03:00 CDT, Duration: 30 day, Stop date: 12/09/15 8:02:00 CDT Inactive 11/09/2015 [facility] Ondansetron 4 mg, 1 tab, Route: PO, Drug form: TAB, Q8H, Dosing Weight 96.903, kg, PRN Nausea & Vomiting, Start date: 11/09/15 8:03:00 CDT, Duration: 30 day, Stop date: 12/09/15 8:02:00 CDTNotes: (Same as: Zofran) Inactive 11/09/2015 [facility] Temazepam 15 mg, 1 cap, Route: PO, Drug form: CAP, Bedtime, Dosing Weight 96.903, kg, PRN Insomnia, Start date: 11/09/15 8:03:00 CDT, Duration: 30 day, Stop date: 12/09/15 8:02:00 CDTNotes: (Same As: Restoril) No Longer Active 11/09/2015 [facility] Acetaminophen 650 mg, 2 tab, Route: PO, Drug form: TAB, Q4H, Dosing Weight 96.903, kg, PRN Headache 1-5, Start date: 11/09/15 8:03:00 CDT, Duration: 30 day, Stop date: 12/09/15 8:02:00 CDTNotes: Do not exceed 4 gm /day. (Same as: Tylenol) No Longer Active 11/09/2015 [facility] Nitroglycerin 0.4 mg, 1 tab, Route: SL, Drug form: TAB, Q5Min, Dosing Weight 96.903, kg, PRN Chest Pain, Start date: 11/09/15 8:03:00 CDT, Duration: 3 doses or times, Stop date: Limited # of timesNotes: (Same as:N itroquick, Nitrostat) "Do Not Crush" Sublingual tablet Inactive 11/09/2015 [facility] Morphine 4 mg, 2 mL, Route: IVP, Drug form: INJ, Q2H, Dosing Weight 96.903, kg, PRN Pain Score 7-10, Start date: 11/09/15 8:03:00 CDT, Duration: 30 day, Stop date: 12/09/15 8:02:00 CDTNotes: (Same as:MORPhine Sulfate) No Longer Active 11/09/2015 [facility] Famotidine 20 mg, Route: IVP, ONCE, Dosing Weight 104.545, kg, Priority: STAT, Start date: 11/09/15 5:39:00 CDT, Stop date: 11/09/15 5:39:00 CDT Inactive 11/09/2015 [facility] Heparin - one time bolus for ACS 4,000 unit, Route: IV, Drug form: SOLN, ONCE, Dosing Weight 104.545, kg, Priority: STAT, Start date: 11/09/15 5:37:00 CDT, Stop date: 11/09/15 5:37:00 CDT Inactive 11/09/2015 [facility] Nitroglycerin 0.02 MG/MG Topical Ointment 1 inch, Route: TOP, Drug Form: OINT, Dosing Weight 104.545, kg, ONCE, STAT, Start date: 11/09/15 2:44:00 CDT, Stop date: 11/09/15 2:44:00 CDTNotes: 1 gram is approximately 1 inch of nitroglycerin ointment (20 mg NTG per gram) (Same as:Nitro-Bid) Inactive 11/09/2015 [facility] Aspirin 325 MG Oral Tablet 325 mg, 1 tab, Route: PO, Drug form: TAB, ONCE, Dosing Weight 104.545, kg, Priority: STAT, Start date: 11/09/15 2:43:00 CDT, Stop date: 11/09/15 2:43:00 CDTNotes: Take with food. Inactive 11/09/2015 [facility] Morphine 4 mg, 2 mL, Route: IVP, Drug form: INJ, ONCE, Dosing Weight 104.545, kg, Priority: STAT, Start date: 11/09/15 2:35:00 CDT, Stop date: 11/09/15 2:35:00 CDTNotes: (Same as:MORPhine Sulfate) Inactive 11/09/2015 [facility] Ondansetron 8 mg, 4 mL, Route: IVP, Drug form: INJ, ONCE, Dosing Weight 104.545, kg, Priority: STAT, Start date: 11/09/15 2:35:00 CDT, Stop date: 11/09/15 2:35:00 CDTNotes: (Same as: Janelfrrickie) MEDICATION WASTE Product Size: 4 mg Product Wasted: ___ mg Inactive 11/09/2015 [facility] Saline Flush 0.9% 10 mL, Route: IVP, Drug Form: INJ, Dosing Weight 104.545, kg, PRN, PRN Line Flush, Start date: 11/09/15 2:35:00 CDT, Duration: 30 day, Stop date: 12/09/15 2:34:00 CDTNotes: (Same as: BD Posiflush) No Longer Active 11/09/2015 [facility] Sodium Chloride 0.154 MEQ/ML Injectable Solution 1,000 mL, 2,000 ml/hr, Infuse Over: 30 minutes, Route: IV, 1,000, Drug form: INJ, ONCE, Priority: STAT, Dosing Weight 104.545 kg, Start date: 11/09/15 2:35:00 CDT, Duration: 1 doses or times, Stop date: 11/09/15 2:35:00 CDT Inactive 11/09/2015 [facility] Ondansetron 4 MG Disintegrating Tablet [Zofran] 4 mg=1 tab, PO, BID, PRN Nausea and Vomiting, Dissolve tab under tongue, X 4 day, # 8 tab, 0 Refill(s) Active 09/05/2015 [facility] Acetaminophen 300 MG / Codeine Phosphate 30 MG Oral Tablet [Tylenol with Codeine #3] 1 - 2 tab, PO, Q4H, PRN Pain, X 5 day, # 24 tab, 0 Refill(s) Active 09/05/2015 [facility] Dilaudid 0.5 mg, Route: IVP, ONCE, Dosing Weight 104.545, kg, Priority: STAT, Start date: 09/05/15 15:12:00 CDT, Stop date: 09/05/15 15:12:00 CDT Inactive 09/05/2015 [facility] Sodium Chloride 0.154 MEQ/ML Injectable Solution 1,000 mL, 1,000 ml/hr, Infuse Over: 1 hr, Route: IV, ONCE, Priority: STAT, Dosing Weight 104.545 kg, Start date: 09/05/15 13:55:00 CDT, Duration: 1 doses or times, Stop date: 09/05/15 13:55:00 CDT Inactive 09/05/2015 [facility] Morphine 4 mg, Route: IVP, ONCE, Dosing Weight 104.545, kg, Start date: 09/05/15 13:55:00 CDT, Stop date: 09/05/15 13:55:00 CDT Inactive 09/05/2015 [facility] Zofran 4 mg, Route: IVP, Drug form: INJ, ONCE, Dosing Weight 104.545, kg, Priority: STAT, Start date: 09/05/15 13:55:00 CDT, Stop date: 09/05/15 13:55:00 CDT Inactive 09/05/2015 [facility] Saline Flush 0.9% 10 mL, Route: IVP, Drug Form: INJ, Dosing Weight 104.545, kg, PRN, PRN Line Flush, Start date: 09/05/15 12:43:00 CDT, Duration: 30 day, Stop date: 10/05/15 12:42:00 CDTNotes: (Same as: BD Posiflush) Inactive 09/05/2015 [facility] azelastine (OPTIVAR) 0.05 % ophthalmic solution Instill 1 Drop in right eye 2 times daily. No Longer Active 06/07/2015 [facility] ibuprofen 800 mg oral tablet 800 mg, PO, Q8H, Pain, Take with food, # 30 tab, 0 Refill(s)Special Instructions: Take with food Active 02/06/2014 [facility] Ketorolac 60 mg, Route: IM, Drug form: INJ, ONCE, Dosing Weight 104.545, kg, Priority: STAT, Start date: 02/06/14 13:30:00, Stop date: 02/06/14 13:30:00 Inactive 02/06/2014 [facility] Acetaminophen 325 MG / Hydrocodone Bitartrate 10 MG Oral Tablet 1 tab, Route: PO, Dosing Weight 104.545, kg, ONCE, STAT, Start date: 02/06/14 13:30:00, Stop date: 02/06/14 13:30:00 Inactive 02/06/2014 [facility] Flexeril 10 mg oral tablet 10 mg, PO, TID, Muscle Spasm, # 30 tab, 0 Refill(s) Active Short 04/22/2013 [facility] Ultram 50 mg oral tablet 1 - 2 tabs, PO, Q6H, as needed for pain, # 30 tab, 0 Refill(s) Active Short 04/22/2013 [facility] Ultram 50 mg oral tablet 100 mg, Route: PO, Drug form: TAB, ONCE, Dosing Weight 104.545, kg, Priority: STAT, Start date: 04/21/13 19:55:00, Stop date: 04/21/13 19:55:00 Inactive Short 04/22/2013 [facility] Flexeril 10 mg, Route: PO, ONCE, Dosing Weight 104.545, kg, Priority: STAT, Start date: 04/21/13 19:55:00, Stop date: 04/21/13 19:55:00 Inactive Short 04/22/2013 [facility] ibuprofen 600 mg oral tablet 600 mg, PO, Q6H, PRN, Take with food, 30 tab, Pain, Substitution AllowedTake with food PO Active [facility]al[facility]Johana 02/05/2013 [facility] Jber 5/325 oral tablet 1-2 tab, PO, Q4-6H, PRN, 30 tab, Pain, Substitution Allowed, Maintenance PO Active [facility]Joh[facility] 02/05/2013 [facility] Jber 5/325 oral tablet 1 tab, Route: PO, Drug Form: TAB, Dosing Weight 104.545, kg, ONCE, Start date: 02/05/13 9:18:00, Stop date: 02/05/13 9:18:00 [facility] Cipro 500 mg oral tablet 500 mg, 1 tab, PO, Q12H, 28 tab, Substitution Allowed, TAB PO Active 11/06/2012 [facility] Flomax 0.4 mg oral capsule 0.4 mg, 1 cap, PO, Daily, 30 cap, Substitution Allowed, CAP PO Active [place] 11/06/2012 [facility] Jber 5/325 oral tablet 1-2 tab, PO, Q4-6H, PRN, 15 tab, Pain, Substitution Allowed, Maintenance PO Active [place] 11/06/2012 [facility] ondansetron 4 mg, Route: IVP, Drug form: INJ, ONCE, Dosing Weight 104.545, kg, Priority: STAT, Start date: 11/06/12 0:31:00, Stop date: 11/06/12 0:31:00 IVP No Longer Active [place] 11/06/2012 [facility] morphine Sulfate 4 mg, Route: IVP, Drug form: INJ, ONCE, Dosing Weight 104.545, kg, Priority: STAT, Start date: 11/06/12 0:31:00, Stop date: 11/06/12 0:31:00 IVP No Longer Active [place] 11/06/2012 [facility] Jber 5/325 oral tablet 1-2 tab, PO, Q4-6H, PRN, 15 tab, Pain, Substitution Allowed, Maintenance PO Active Pereyra 02/11/2012 [facility] diclofenac topical 1% gel 1 appl, TOP, QID, PRN, 100 gm, for pain, Substitution Allowed, GEL TOP Active Pereyra 02/11/2012 [facility] Flexeril 10 mg oral tablet 10 mg, PO, TID, PRN, 30 tab, Muscle Spasm, Substitution Allowed PO Active Pereyra 02/11/2012 [facility] ketorolac 60 mg, Route: IM, ONCE, Dosing Weight 90.909, kg, Priority: STAT, Start date: 02/11/12 18:19:00, Stop date: 02/11/12 18:19:00 IM No Longer Active Pereyra 02/11/2012 [facility] ibuprofen 800 mg oral tablet 800 mg, PO, Q8H, PRN, 30 tab, Pain, Substitution Allowed, Take with foodTake with food PO Active [facility] 01/30/2011 [facility] aspirin 324 mg, Route: CHEW, Drug form: CHEWTAB, ONCE, Priority: STAT, Start date: 01/30/11 3:28:00, Stop date: 01/30/11 3:28:00 CHEW No Longer Active [facility] 01/30/2011 [facility] Allergies, Adverse Reactions, Alerts Substance Category Reaction Severity Reaction type Status Date Reported Comments Source Immunizations Immunization Date Given Site Status Last Updated Comments Source Influenza Vaccine 03/28/2018 Not Given Deferred: Other [facility] Influenza Vac (Fluarix) 05/05/2015 Not Given Deferred: Patient Refused [facility] Results Order Name Results Value Reference Range Date Interpretation Comments Source XRAY CHEST 2 VIEWS IMPRESSION: Stable cardiomegaly. Dictated By: Nathanael Abbott MD, 05/18/2018 11:34 AM I have reviewed the study and agree with the findings in this report. Signed By: Kami Sykes MD, 05/18/2018 2:48 PM EXAMINATION:XRAY CHEST 2 VIEWS INDICATION: history of pneumonia COMPARISON:Chest radiograph 01/16/2018, [...] ABDOMEN: No free air under the diaphragm. Interface, Rad/Mammog In - 05/18/2018 2:53 PM [facility] EXAMINATION: XRAY CHEST 2 VIEWS INDICATION: history [...] By: Kami Sykes MD, 05/18/2018 2:48 PM 05/18/2018 [facility] Chest 2 views DX Chest 2 views DX Clinical Indication: Cough and fever - sob. Comparison: Two-view chest 07/14/2017 Findings: Frontal and lateral views of the chest obtained. The cardiac silhouette is at the upper limits of normal in size. There are bilateral, right greater than left perihilar airspace opacities. No pneumothorax. No acute osseous abnormality. IMPRESSION: Bilateral perihilar airspace opacities may be related to multifocal pneumonia, edema or ARDS. SL: [id number] 05/08/2018 - - Read by: Isabel Reyes MD Dictated Date/time: 05/08/18 20:30 Electronically Signed by: Isabel Reyes MD 05/08/18 20:31 FINAL REPORT [facility] B NATRIURETIC PEPT B Natriuretic Pept 42 pg/mL <101 01/20/2018 [facility] HEMOGLOBIN A1C Hemoglobin A1c 5.5 % 4.3 - 6.1 01/17/2018 [facility] HEMOGLOBIN A1C Est Average Gluc 111.2 mg/dL 01/17/2018 [facility] COMPREHENSIVE METABOLIC PANEL(DBIL NOT INCLUDED) Albumin 4.6 g/dL 3.7 - 5.3 01/17/2018 [facility] COMPREHENSIVE METABOLIC PANEL(DBIL NOT INCLUDED) Calcium 8.9 mg/dL 8.6 - 10.3 01/17/2018 [facility] COMPREHENSIVE METABOLIC PANEL(DBIL NOT INCLUDED) CO2 23 mmol/L 21 - 31 01/17/2018 [facility] COMPREHENSIVE METABOLIC PANEL(DBIL NOT INCLUDED) Chloride 107 mmol/L 98 - 107 01/17/2018 [facility] COMPREHENSIVE METABOLIC PANEL(DBIL NOT INCLUDED) Creatinine 0.80 mg/dL 0.6 - 1.2 01/17/2018 [facility] COMPREHENSIVE METABOLIC PANEL(DBIL NOT INCLUDED) Glucose 78 mg/dL 70 - 110 01/17/2018 [facility] COMPREHENSIVE METABOLIC PANEL(DBIL NOT INCLUDED) Alk Phos 45 U/L 34 - 104 01/17/2018 [facility] COMPREHENSIVE METABOLIC PANEL(DBIL NOT INCLUDED) Potassium 4.7 mmol/L 3.5 - 5.1 01/17/2018 [facility] COMPREHENSIVE METABOLIC PANEL(DBIL NOT INCLUDED) Sodium 139 mmol/L 136 - 145 01/17/2018 [facility] COMPREHENSIVE METABOLIC PANEL(DBIL NOT INCLUDED) ALT 10 U/L 7 - 52 01/17/2018 [facility] COMPREHENSIVE METABOLIC PANEL(DBIL NOT INCLUDED) AST 13 U/L 13 - 39 01/17/2018 [facility] COMPREHENSIVE METABOLIC PANEL(DBIL NOT INCLUDED) Urea Nitrogen 9 mg/dL 7 - 25 01/17/2018 [facility] COMPREHENSIVE METABOLIC PANEL(DBIL NOT INCLUDED) T Bilirubin 0.7 mg/dL 0.2 - 1.2 01/17/2018 [facility] COMPREHENSIVE METABOLIC PANEL(DBIL NOT INCLUDED) T Protein 8.1 g/dL 6 - 8.3 01/17/2018 [facility] COMPREHENSIVE METABOLIC PANEL(DBIL NOT INCLUDED) GFR, Estimated >60 mL/min/1.73 m2 01/17/2018 [facility] COMPREHENSIVE METABOLIC PANEL(DBIL NOT INCLUDED) GFR, Estim, Afr-Am >60 mL/min/1.73 m2 01/17/2018 [facility] COMPREHENSIVE METABOLIC PANEL(DBIL NOT INCLUDED) Anion Gap 9 01/17/2018 [facility] LIPID PROFILE Cholesterol 183 mg/dL 01/17/2018 REFERENCE RANGE: Desirable: <200 mg/dL Borderline: 200-240 mg/dL High Risk: >240 mg/dL [facility] LIPID PROFILE Triglyceride 102 mg/dL <150 01/17/2018 REFERENCE RANGE: Normal: <150 mg/dL Borderline High: 150-199 mg/dL High: 200-499 mg/dL Very High: >qi=233 mg/dL [facility] LIPID PROFILE HDL 67 mg/dL 01/17/2018 Increased CHD risk: <40 mg/dL Decreased CHD risk: >60 mg/dL [facility] LIPID PROFILE LDL 96 mg/dL 01/17/2018 REFERENCE RANGE: Optimal: <100 mg/dL Near Optimal: 100-129 mg/dL Borderline High: 130-159 mg/dL High: 160-189 mg/dL Very High: >ty=877 mg/dL [facility] SYPHILIS MONITOR FOR TREATMENT RPR Nonreactive NR Titer 01/17/2018 [facility] HEPATITIS PANEL HCV IgG Negative NEG 01/17/2018 [facility] HEPATITIS PANEL HBsAg Negative NEG 01/17/2018 [facility] HEPATITIS PANEL HAV, IgM Negative NEG 01/17/2018 [facility] HEPATITIS PANEL HBcAb, IgM Negative NEG 01/17/2018 [facility] HIV-1/HIV-2 ROUTINE SCREENING HIV-1/HIV-2 Negative NEG 01/17/2018 [facility] CBC/DIFF WBC 5.3 K/uL 4.5 - 11 01/17/2018 [facility] CBC/DIFF RBC 4.22 4.20 - 5.40 01/17/2018 [facility] CBC/DIFF Hemoglobin 11.8 g/dL 12 - 16 01/17/2018 [facility] CBC/DIFF Hematocrit 38.7 % 37 - 47 01/17/2018 [facility] CBC/DIFF MCV 92 fL 82 - 92 01/17/2018 [facility] CBC/DIFF MCH 28.0 pg 27 - 32 01/17/2018 [facility] CBC/DIFF MCHC 30.5 g/dL 32 - 36 01/17/2018 [facility] CBC/DIFF RDW 45.7 fL 36.4 - 46.3 01/17/2018 [facility] CBC/DIFF Platelet 224 K/uL 150 - 400 01/17/2018 [facility] CBC/DIFF Mean Platelet Volume 11.7 fL 9.4 - 12.4 01/17/2018 [facility] CBC/DIFF Percent NRBC 0.0 01/17/2018 [facility] CBC/DIFF Absolute NRBC 0.00 01/17/2018 [facility] CBC/DIFF Neutrophil 37.8 % 34 - 70 01/17/2018 [facility] CBC/DIFF Lymphocyte 46.3 % 20 - 50 01/17/2018 [facility] CBC/DIFF Monocyte 9.9 % 5 - 12 01/17/2018 [facility] CBC/DIFF Eosinophil 5.1 % 0.7 - 5 01/17/2018 [facility] CBC/DIFF Basophil 0.7 % 0.1 - 1.2 01/17/2018 [facility] CBC/DIFF Pct Immat Gran 0.2 0.0 - 0.5 01/17/2018 [facility] CBC/DIFF Neutrophil, Abs 2.02 K/uL 1.56 - 6.13 01/17/2018 [facility] CBC/DIFF Lymphocyte, Abs 2.47 K/uL 1.18 - 3.74 01/17/2018 [facility] CBC/DIFF Monocyte, Abs 0.53 K/uL 0.24 - 0.36 01/17/2018 [facility] CBC/DIFF Eosinophil, Abs 0.27 K/uL 0.04 - 0.36 01/17/2018 [facility] CBC/DIFF Basophil, Abs 0.04 K/uL 0.01 - 0.08 01/17/2018 [facility] CBC/DIFF Absol Immat Gran 0.01 K/uL 0 - 0.03 01/17/2018 [facility] CBC/DIFF Lab Interpretation Abnormal 01/17/2018 [facility] TSH TSH 2.34 0.57 - 3.74 01/17/2018 [facility] URINE CHEM U Preg Negative (09/25/17 6:22 AM) Negative 09/25/2017 [facility] Hip 2/3 views uni w pelvis DX Hip 2/3 views uni w pelvis DX Exam: Right Hip 2/3 views uni w pelvis DX Clinical Indication: Pain of unknown origin - pain. Right hip pain radiating down the right leg Comparison: None FINDINGS: Two views of the right hip were obtained. There is no fracture. No dislocation. The acetabulum is unremarkable. The regional soft tissues are normal. There are no radio-opaque foreign bodies. There are calcified phleboliths in the pelvis. If there is further concern, recommend follow-up radiographs or MRI for complete assessment. IMPRESSION: No fracture or dislocation. SL: [id number] 09/25/2017 - - Read by: Isabel Reyes MD Dictated Date/time: 09/25/17 07:02 Electronically Signed by: Isabel Reyes MD 09/25/17 07:03 FINAL REPORT [facility] Spine lumbar 2 or 3 views DX Spine lumbar 2 or 3 views DX Clinical Indication: Trauma - pain. Right hip pain radiating down the right leg Comparison: None FINDINGS: AP, lateral, and spot views of the lumbar spine. Vertebral body heights are maintained without fracture. No spondylolisthesis. Alignment is normal. There is severe disc space narrowing at L5-S1 with osseous ridging. There is facet arthropathy at L5-S1. There is calcification of an iliolumbar ligament at L5 on the left.. The paraspinal soft tissues are unremarkable. If there is further concern or neurological abnormalities on clinical exam, MRI or CT of the lumbar spine may be performed for complete assessment. IMPRESSION: Moderate to severe degenerative change at the lumbosacral junction. SL: [id number] 09/25/2017 - - Read by: Isabel Reyes MD Dictated Date/time: 09/25/17 07:00 Electronically Signed by: Isabel Reyes MD 09/25/17 07:02 FINAL REPORT [facility] CARDIAC ENZYMES Total CK 184 unit/L 12 - 191 07/15/2017 [facility] CARDIAC ENZYMES Troponin-I 0.07 ng/mL 0.00 - 0.40 07/15/2017 [facility] CARDIAC ENZYMES CK MB Index 0.5 0.0 - 2.5 07/15/2017 [facility] CARDIAC ENZYMES CK MB 1.0 ng/mL 0.5 - 3.6 07/15/2017 [facility] DRUG SCREEN UDS Note See Note (07/15/17 9:26 AM) 07/15/2017 [facility] DRUG SCREEN U Phencyc Scr Negative *NA* (07/15/17 9:26 AM) Negative 07/15/2017 [facility] DRUG SCREEN U Opiate Scr Negative *NA* (07/15/17 9:26 AM) Negative 07/15/2017 [facility] DRUG SCREEN U Cocaine Scr Negative *NA* (07/15/17 9:26 AM) Negative 07/15/2017 [facility] DRUG SCREEN U Cannab Scr Negative *NA* (07/15/17 9:26 AM) Negative 07/15/2017 [facility] DRUG SCREEN U Nayeli Scr Negative *NA* (07/15/17 9:26 AM) Negative 07/15/2017 [facility] DRUG SCREEN U Amph Scr Negative *NA* (07/15/17 9:26 AM) Negative 07/15/2017 [facility] DRUG SCREEN U Benzodia Scr Negative *NA* (07/15/17 9:26 AM) Negative 07/15/2017 [facility] CARDIAC ENZYMES CK MB 2.0 ng/mL 0.5 - 3.6 07/15/2017 [facility] CARDIAC ENZYMES CK MB Index 1.0 0.0 - 2.5 07/15/2017 [facility] CARDIAC ENZYMES Total CK 196 unit/L 12 - 191 07/15/2017 [facility] CARDIAC ENZYMES Troponin-I 0.09 ng/mL 0.00 - 0.40 07/15/2017 [facility] CHEM PANEL Albumin Lvl 3.6 g/dL 3.5 - 5.0 07/15/2017 [facility] CHEM PANEL Bili Direct 0.2 mg/dL 0.0 - 0.3 07/15/2017 [facility] CHEM PANEL Bili Indirect 0.8 mg/dL 0.0 - 1.0 07/15/2017 [facility] CHEM PANEL Globulin 3.9 g/dL 2.7 - 4.2 07/15/2017 [facility] CHEM PANEL A/G Ratio 0.9 0.7 - 1.6 07/15/2017 [facility] CHEM PANEL Alk Phos 46 unit/L 39 - 136 07/15/2017 [facility] CHEM PANEL Bili Total 1.0 mg/dL 0.2 - 1.3 07/15/2017 [facility] CHEM PANEL ALT 11 unit/L 0 - 65 07/15/2017 [facility] CHEM PANEL AST 11 unit/L 0 - 37 07/15/2017 [facility] CHEM PANEL Total Protein 7.5 g/dL 6.4 - 8.4 07/15/2017 [facility] ELECTROLYTES AGAP 16.8 meq/L 10.0 - 20.0 07/15/2017 [facility] ELECTROLYTES eGFR 101 mL/min/1.73m2 07/15/2017 Result Comment: The eGFR is calculated using the CKD-EPI formula. In most young, healthy individuals the eGFR will be >90 mL/min/1.73m2. The eGFR declines with age. An eGFR of 60-89 may be normal in some populations, particularly the elderly, for whom the CKD-EPI formula has not been extensively validated. Use of the eGFR is not recommended in the following populations: Individuals with unstable creatinine concentrations, including patients and those with serious co-morbid conditions. Patients with extremes in muscle mass or diet. The data above are obtained from the National Kidney Disease Education Program (NKDEP) which additionally recommends that when the eGFR is used in patients with extremes of body mass index for purposes of drug dosing, the eGFR should be multiplied by the estimated BMI. [facility] ELECTROLYTES CO2 22 meq/L 24 - 32 07/15/2017 [facility] ELECTROLYTES Calcium Lvl 8.1 mg/dL 8.5 - 10.5 07/15/2017 [facility] ELECTROLYTES Glucose Lvl 99 mg/dL 70 - 99 07/15/2017 [facility] ELECTROLYTES BUN 9 mg/dL 7 - 22 07/15/2017 [facility] ELECTROLYTES Creatinine Lvl 0.82 mg/dL 0.50 - 1.40 07/15/2017 [facility] ELECTROLYTES Sodium Lvl 142 meq/L 135 - 145 07/15/2017 [facility] ELECTROLYTES Potassium Lvl 3.8 meq/L 3.5 - 5.1 07/15/2017 [facility] ELECTROLYTES Chloride Lvl 107 meq/L 95 - 109 07/15/2017 [facility] HEMATOLOGY MCH 29.5 pg 27.0 - 31.0 07/15/2017 [facility] HEMATOLOGY Hct 34.1 % 36.0 - 48.0 07/15/2017 [facility] HEMATOLOGY MCV 87.1 fL 80.0 - 98.0 07/15/[address] [facility] MPV 10.0 fL 7.4 - 10.4 07/15/[address] [facility] MCHC 33.9 g/dL 32.0 - 36.0 07/15/2017 [facility] HEMATOLOGY RDW 14.1 % 11.5 - 14.5 07/15/2017 [facility] HEMATOLOGY Platelet 201 K/CMM 133 - 450 07/15/2017 [facility] HEMATOLOGY RBC 3.92 M/CMM 4.20 - 5.40 07/15/2017 [facility] WBC 5.4 K/CMM 3.7 - 10.4 07/15/[address] [facility] Hgb 11.6 g/dL 12.0 - 16.0 07/15/2017 [facility] HEMATOLOGY Eosinophils 4.0 % 0.0 - 4.0 07/15/2017 [facility] HEMATOLOGY Monocytes 9.4 % 2.0 - 12.0 07/15/2017 [facility] Lymphocytes 36.8 % 20.0 - 40.0 07/15/2017 [facility] Monocytes # 0.5 K/CMM 0.0 - 0.8 07/15/2017 [facility] HEMATOLOGY Eosinophils # 0.2 K/CMM 0.0 - 0.5 07/15/2017 [facility] HEMATOLOGY Segs-Bands # 2.6 K/CMM 1.5 - 8.1 07/15/2017 [facility] Lymphocytes # 2.0 K/CMM 1.0 - 5.5 07/15/2017 [facility] HEMATOLOGY Basophils 0.8 % 0.0 - 1.0 07/15/2017 [facility] HEMATOLOGY Segs 49.0 % 45.0 - 75.0 07/15/2017 [facility] LIPIDS CHD Risk 2.90 3.90 - 5.80 07/15/2017 [facility] LIPIDS VLDL 21 07/15/2017 [facility] LIPIDS LDL (Calculated) 93 mg/dL <=99 mg/dL 07/15/2017 [facility] LIPIDS Chol 174 mg/dL <=199 mg/dL 07/15/2017 [facility] LIPIDS HDL 60 mg/dL >=61 mg/dL 07/15/2017 [facility] LIPIDS Trig 105 mg/dL <=149 mg/dL 07/15/2017 [facility] CARDIAC ENZYMES Troponin-I 0.21 ng/mL 0.00 - 0.40 07/15/2017 [facility] CARDIAC ENZYMES Total CK 200 unit/L 12 - 191 07/15/2017 [facility] CARDIAC ENZYMES CK MB 1.4 ng/mL 0.5 - 3.6 07/15/2017 [facility] CARDIAC ENZYMES CK MB Index 0.7 0.0 - 2.5 07/15/2017 [facility] CARDIAC ENZYMES BNP 139 pg/mL <=100 pg/mL 07/15/2017 [facility] CHEM PANEL eGFR 96 mL/min/1.73m2 07/15/2017 Result Comment: The eGFR is calculated using the CKD-EPI formula. In most young, healthy individuals the eGFR will be >90 mL/min/1.73m2. The eGFR declines with age. An eGFR of 60-89 may be normal in some populations, particularly the elderly, for whom the CKD-EPI formula has not been extensively validated. Use of the eGFR is not recommended in the following populations: Individuals with unstable creatinine concentrations, including patients and those with serious co-morbid conditions. Patients with extremes in muscle mass or diet. The data above are obtained from the National Kidney Disease Education Program (NKDEP) which additionally recommends that when the eGFR is used in patients with extremes of body mass index for purposes of drug dosing, the eGFR should be multiplied by the estimated BMI. [facility] CHEM PANEL Globulin 4.0 g/dL 2.7 - 4.2 07/15/2017 [facility] CHEM PANEL A/G Ratio 0.9 0.7 - 1.6 07/15/2017 [facility] CHEM PANEL Glucose Lvl 85 mg/dL 70 - 99 07/15/2017 [facility] CHEM PANEL Potassium Lvl 3.8 meq/L 3.5 - 5.1 07/15/2017 [facility] CHEM PANEL CO2 24 meq/L 24 - 32 07/15/2017 [facility] CHEM PANEL Chloride Lvl 110 meq/L 95 - 109 07/15/2017 [facility] CHEM PANEL AST 13 unit/L 0 - 37 07/15/2017 [facility] CHEM PANEL ALT 11 unit/L 0 - 65 07/15/2017 [facility] CHEM PANEL Alk Phos 44 unit/L 39 - 136 07/15/2017 [facility] CHEM PANEL BUN 11 mg/dL 7 - 22 07/15/2017 [facility] CHEM PANEL Sodium Lvl 141 meq/L 135 - 145 07/15/2017 [facility] CHEM PANEL Creatinine Lvl 0.85 mg/dL 0.50 - 1.40 07/15/2017 [facility] CHEM PANEL Bili Total 0.6 mg/dL 0.2 - 1.3 07/15/2017 [facility] CHEM PANEL AGAP 10.8 meq/L 10.0 - 20.0 07/15/2017 [facility] CHEM PANEL B/C Ratio 13 6 - 25 07/15/2017 [facility] CHEM PANEL Calcium Lvl 8.2 mg/dL 8.5 - 10.5 07/15/2017 [facility] CHEM PANEL Albumin Lvl 3.7 g/dL 3.5 - 5.0 07/15/2017 [facility] CHEM PANEL Total Protein 7.7 g/dL 6.4 - 8.4 07/15/2017 [facility] ENDOCRINOLOGY S Preg Negative *NA* (07/15/17 12:06 AM) Negative 07/15/2017 [facility] HEMATOLOGY INR 1.02 0.85 - 1.17 07/15/2017 [facility] HEMATOLOGY PT 13.4 s 12.0 - 14.7 07/15/2017 [facility] HEMATOLOGY WBC 8.0 K/CMM 3.7 - 10.4 07/15/2017 [facility] HEMATOLOGY Hct 34.5 % 36.0 - 48.0 07/15/2017 [facility] HEMATOLOGY Hgb 11.5 g/dL 12.0 - 16.0 07/15/2017 [facility] HEMATOLOGY MCH 29.0 pg 27.0 - 31.0 07/15/2017 [facility] HEMATOLOGY RBC 3.97 M/CMM 4.20 - 5.40 07/15/2017 [facility] HEMATOLOGY MCV 86.8 fL 80.0 - 98.0 07/15/2017 [facility] RDW 13.9 % 11.5 - 14.5 07/15/[address] [facility] MPV 9.4 fL 7.4 - 10.4 07/15/[address] [facility] MCHC 33.4 g/dL 32.0 - 36.0 07/15/[address] [facility] Platelet 201 K/CMM 133 - 450 07/15/[address] [facility] Lymphocytes 38.1 % 20.0 - 40.0 07/15/[address] [facility] Segs 50.7 % 45.0 - 75.0 07/15/[address] [facility] Basophils 0.9 % 0.0 - 1.0 07/15/[address] [facility] Eosinophils 2.5 % 0.0 - 4.0 07/15/[address] [facility] Monocytes 7.8 % 2.0 - 12.0 07/15/[address] [facility] Eosinophils # 0.2 K/CMM 0.0 - 0.5 07/15/[address] [facility] Basophils # 0.1 K/CMM 0.0 - 0.2 07/15/[address] [facility] Monocytes # 0.6 K/CMM 0.0 - 0.8 07/15/[address] [facility] Segs-Bands # 4.1 K/CMM 1.5 - 8.1 07/15/2017 [facility] Lymphocytes # 3.1 K/CMM 1.0 - 5.5 07/15/2017 [facility] Pulmonary Embolism CTA Chest Pulmonary Embolism CTA Clinical Indication: Chest pain. Dyspnea. Comparison: CTA chest 11/09/2015. TECHNIQUE: Sequential trans-axial images were obtained thru the chest and upper abdomen after administration of iodinated contrast. Coronal, 3-D MIP and sagittal reconstructions were obtained. 100 mL of Omnipaque was used for the exam. Dose: XSJ=221.70 mGy-cm FINDINGS: LUNG PARENCHYMA AND PLEURA: There are irregular groundglass opacities within bilateral upper lobes and bilateral lower lobes, which are overall decreased since the prior study. There is no pleural effusion or pneumothorax. AIRWAY: The central airway is patent. MEDIASTINUM: No significant mediastinal lymphadenopathy. HEART: There are no significant coronary artery calcifications. Again seen is a moderately enlarged heart. There is no pericardial effusion. VASCULAR STRUCTURES: There are no segmental pulmonary emboli noted. The main, right and left pulmonary arteries are enlarged. The great vessels are unremarkable. The thoracic aorta demonstrates no aneurysmal dilatation nor aortic dissection. The superior vena cava is unremarkable. OSSEOUS STRUCTURES: There are degenerative changes within the visualized spine. VISUALIZED UPPER ABDOMEN: There is a small hiatal hernia. IMPRESSION: 1. Decreased nonspecific irregular groundglass opacities within both lungs. Differential includes pneumonitis or pulmonary edema. 2. Enlargement of the main, right and left pulmonary arteries, which may represent pulmonary artery hypertension. 3. Again seen moderate cardiomegaly. 4. No evidence of acute pulmonary embolism. SL: [id number] 07/15/2017 - - Read by: Billy Chang MD Dictated Date/time: 07/15/17 01:35 Electronically Signed by: Billy Chang MD 07/15/17 01:48 FINAL REPORT [facility] Chest 2 views DX Chest 2 views DX Clinical Indication: Acute chest pain, shortness of breath. Comparison: 07/05/2016 FINDINGS: PA and lateral views of the chest have been provided. Lungs are clear. Heart mildly enlarged. Central pulmonary vasculature appears normal. No effusion. No pneumothorax. No radiographically apparent acute osseous abnormality. IMPRESSION: 1. No radiographically apparent acute cardiopulmonary process. 2. Mild cardiomegaly. SL: [id number] 07/14/2017 - - Read by: Bright Claire MD Dictated Date/time: 07/14/17 23:50 Electronically Signed by: Bright Claire MD 07/14/17 23:51 FINAL REPORT [facility] Brain wo contrast CT Brain wo contrast CT I have reviewed this examination and concur with the interpretation. PROCEDURE: CT head without contrast. Coronal and Sagittal reconstruction images. INDICATION: Headache with trauma. TECHNIQUE: CT images were obtained from the foramen magnum to the vertex without the use of intravenous contrast on a multidetector CT. Reconstruction images performed. Total CT radiation dose: XNF=008.57 mGy-cm COMPARISON: None. FINDINGS: BRAIN PARENCHYMA: No evidence for acute infarct. There are normal rodriguez-white interfaces. There are no focal mass lesions. There is no mass effect, midline shift. There are no intra-axial or extra-axial fluid collections, intraventricular or intraparenchymal hemorrhage. The pineal, sellar, brainstem, cerebellum and skull base regions appear unremarkable. VENTRICLES AND CISTERNS: The lateral ventricles, third and fourth ventricles appear unremarkable. The basilar cisterns are normal. ORBITS, MASTOIDS AND PARANASAL SINUSES: The visualized aspects of the orbits appear unremarkable. The visualized aspects of the paranasal sinuses appear unremarkable. The mastoid air cells are clear. SKULL: No acute osseous abnormalities. IMPRESSION: 1. No evidence for acute intracranial abnormality. SL: [id number] 04/28/2017 - - Read by: Gatito Camp MD Dictated Date/time: 04/28/17 18:10 Electronically Signed by: Gatito Camp MD 04/28/17 18:11 FINAL REPORT - - Read by: Audrey Mane MD Dictated Date/time: 04/28/17 18:06 Electronically Signed by: Audrey Mane MD 04/28/17 18:08 FINAL REPORT [facility] CARDIAC ENZYMES Troponin-I null 0.00 - 0.40 07/05/2016 [facility] CARDIAC ENZYMES CK MB null 0.5 - 3.6 07/05/2016 [facility] CARDIAC ENZYMES Total CK 103 unit/L 12 - 191 07/05/2016 [facility] CARDIAC ENZYMES CK MB Index null 0.0 - 2.5 07/05/2016 [facility] CHEM PANEL eGFR 96 mL/min/1.73m2 07/05/2016 Result Comment: The eGFR is calculated using the CKD-EPI formula. In most young, healthy individuals the eGFR will be >90 mL/min/1.73m2. The eGFR declines with age. An eGFR of 60-89 may be normal in some populations, particularly the elderly, for whom the CKD-EPI formula has not been extensively validated. Use of the eGFR is not recommended in the following populations: Individuals with unstable creatinine concentrations, including patients and those with serious co-morbid conditions. Patients with extremes in muscle mass or diet. The data above are obtained from the National Kidney Disease Education Program (NKDEP) which additionally recommends that when the eGFR is used in patients with extremes of body mass index for purposes of drug dosing, the eGFR should be multiplied by the estimated BMI. [facility] CHEM PANEL A/G Ratio 0.9 0.7 - 1.6 07/05/2016 [facility] CHEM PANEL Globulin 4.2 g/dL 2.7 - 4.2 07/05/2016 [facility] CHEM PANEL B/C Ratio 13 6 - 25 07/05/2016 [facility] CHEM PANEL AGAP 9.5 meq/L 10.0 - 20.0 07/05/2016 [facility] CHEM PANEL Bili Total 0.7 mg/dL 0.2 - 1.3 07/05/2016 [facility] CHEM PANEL Alk Phos 51 unit/L 39 - 136 07/05/2016 [facility] CHEM PANEL AST 13 unit/L 0 - 37 07/05/2016 [facility] CHEM PANEL ALT 18 unit/L 0 - 65 07/05/2016 [facility] CHEM PANEL Total Protein 8.1 g/dL 6.4 - 8.4 07/05/2016 [facility] CHEM PANEL Albumin Lvl 3.9 g/dL 3.5 - 5.0 07/05/2016 [facility] CHEM PANEL Sodium Lvl 138 meq/L 135 - 145 07/05/2016 [facility] CHEM PANEL Chloride Lvl 105 meq/L 95 - 109 07/05/2016 [facility] CHEM PANEL Potassium Lvl 3.5 meq/L 3.5 - 5.1 07/05/2016 [facility] CHEM PANEL Glucose Lvl 96 mg/dL 70 - 99 07/05/2016 [facility] CHEM PANEL Creatinine Lvl 0.86 mg/dL 0.50 - 1.40 07/05/2016 [facility] CHEM PANEL BUN 11 mg/dL 7 - 22 07/05/2016 [facility] CHEM PANEL Calcium Lvl 8.2 mg/dL 8.5 - 10.5 07/05/2016 [facility] CHEM PANEL CO2 27 meq/L 24 - 32 07/05/2016 [facility] HEMATOLOGY INR 0.94 0.85 - 1.17 07/05/2016 [facility] HEMATOLOGY PT 12.8 s 12.0 - 14.7 07/05/2016 [facility] HEMATOLOGY PTT 32.2 s 22.9 - 35.8 07/05/2016 [facility] HEMATOLOGY MCV 86.6 fL 80.0 - 98.0 07/05/2016 [facility] HEMATOLOGY Hct 35.7 % 36.0 - 48.0 07/05/2016 [facility] HEMATOLOGY MPV 9.2 fL 7.4 - 10.4 07/05/2016 [facility] HEMATOLOGY RDW 14.5 % 11.5 - 14.5 07/05/2016 [facility] HEMATOLOGY MCHC 33.9 g/dL 32.0 - 36.0 07/05/2016 [facility] HEMATOLOGY Platelet 216 K/CMM 133 - 450 07/05/2016 [facility] Hgb 12.1 g/dL 12.0 - 16.0 07/05/2016 [facility] MCH 29.4 pg 27.0 - 31.0 07/05/2016 [facility] WBC 6.3 K/CMM 3.7 - 10.4 07/05/2016 [facility] RBC 4.12 M/CMM 4.20 - 5.40 07/05/2016 [facility] Eosinophils # 0.2 K/CMM 0.0 - 0.5 07/05/2016 [facility] Basophils 0.8 % 0.0 - 1.0 07/05/2016 [facility] Segs-Bands # 3.6 K/CMM 1.5 - 8.1 07/05/2016 [facility] Lymphocytes # 2.0 K/CMM 1.0 - 5.5 07/05/2016 [facility] Monocytes # 0.5 K/CMM 0.0 - 0.8 07/05/2016 [facility] Segs 57.2 % 45.0 - 75.0 07/05/2016 [facility] Lymphocytes 31.2 % 20.0 - 40.0 07/05/2016 [facility] Monocytes 7.9 % 2.0 - 12.0 07/05/2016 [facility] Eosinophils 2.9 % 0.0 - 4.0 07/05/2016 [facility] Chest 2 views DX Chest 2 views DX PA and lateral chest: The cardiomediastinal silhouette, pulmonary vasculature and tariq are within normal limits. The lungs and pleural spaces are clear. There are no significant osseous abnormalities. IMPRESSION: No acute radiographic abnormalities in the chest. [id number] 07/05/2016 - - Read by: Michael Huerta MD Dictated Date/time: 07/05/16 15:41 Electronically Signed by: Michael Huerta MD 07/05/16 15:45 FINAL REPORT [facility] Ext Lower limited non vascular US Ext Lower limited non vascular US : 1975; Age: 40 years y/o Female MR: [id number] Study: Ext Lower limited non vascular US 11/10/2015 10:38 AM CDT Clinical Indication: Pain, prolonged; cath through right groin; rule out pseudoaneurysm Comparison: None TECHNIQUE: Grayscale and color Doppler images of the right groin and femoral arteries are done. FINDINGS: No pseudoaneurysm or hematoma is seen. Flow is identified in the common femoral and superficial femoral arteries with appropriate waveforms. IMPRESSION: No pseudoaneurysm identified. SL: [id number] 11/10/2015 - - Read by: Mark Rodriguez MD Dictated Date/time: 11/10/15 13:27 Electronically Signed by: Mark Rodriguez MD 11/10/15 13:36 FINAL REPORT [facility] CHEM PANEL eGFR 95 mL/min/1.73m2 11/10/2015 Result Comment: The eGFR is calculated using the CKD-EPI formula. In most young, healthy individuals the eGFR will be >90 mL/min/1.73m2. The eGFR declines with age. An eGFR of 60-89 may be normal in some populations, particularly the elderly, for whom the CKD-EPI formula has not been extensively validated. Use of the eGFR is not recommended in the following populations: Individuals with unstable creatinine concentrations, including patients and those with serious co-morbid conditions. Patients with extremes in muscle mass or diet. The data above are obtained from the National Kidney Disease Education Program (NKDEP) which additionally recommends that when the eGFR is used in patients with extremes of body mass index for purposes of drug dosing, the eGFR should be multiplied by the estimated BMI. [facility] CHEM PANEL Creatinine Lvl 0.87 mg/dL 0.50 - 1.40 11/10/2015 [facility] CHEM PANEL Sodium Lvl 141 meq/L 135 - 145 11/10/2015 [facility] CHEM PANEL BUN 11 mg/dL 7 - 22 11/10/2015 [facility] CHEM PANEL Glucose Lvl 89 mg/dL 70 - 99 11/10/2015 [facility] CHEM PANEL Potassium Lvl 3.8 meq/L 3.5 - 5.1 11/10/2015 [facility] CHEM PANEL Chloride Lvl 107 meq/L 95 - 109 11/10/2015 [facility] CHEM PANEL CO2 27 meq/L 24 - 32 11/10/2015 [facility] CHEM PANEL Calcium Lvl 7.9 mg/dL 8.5 - 10.5 11/10/2015 [facility] CHEM PANEL AGAP 10.8 meq/L 10.0 - 20.0 11/10/2015 [facility] HEMATOLOGY Platelet 184 K/CMM 133 - 450 11/10/2015 [facility] HEMATOLOGY MPV 9.4 fL 7.4 - 10.4 11/10/2015 [facility] HEMATOLOGY MCHC 33.1 g/dL 32.0 - 36.0 11/10/2015 [facility] HEMATOLOGY RDW 13.9 % 11.5 - 14.5 11/10/2015 [facility] HEMATOLOGY MCH 28.7 pg 27.0 - 31.0 11/10/2015 [facility] HEMATOLOGY MCV 86.9 fL 80.0 - 98.0 11/10/2015 [facility] HEMATOLOGY Hct 34.3 % 36.0 - 48.0 11/10/2015 [facility] HEMATOLOGY Hgb 11.3 g/dL 12.0 - 16.0 11/10/2015 [facility] HEMATOLOGY RBC 3.95 M/CMM 4.20 - 5.40 11/10/2015 [facility] HEMATOLOGY WBC 6.0 K/CMM 3.7 - 10.4 11/10/2015 [facility] HEMATOLOGY Monocytes # 0.6 K/CMM 0.0 - 0.8 11/10/2015 [facility] HEMATOLOGY Eosinophils 3.6 % 0.0 - 4.0 11/10/2015 [facility] HEMATOLOGY Monocytes 9.6 % 2.0 - 12.0 11/10/2015 [facility] HEMATOLOGY Segs-Bands # 2.4 K/CMM 1.5 - 8.1 11/10/2015 [facility] HEMATOLOGY Basophils 0.9 % 0.0 - 1.0 11/10/2015 [facility] HEMATOLOGY Basophils # 0.1 K/CMM 0.0 - 0.2 11/10/2015 [facility] HEMATOLOGY Eosinophils # 0.2 K/CMM 0.0 - 0.5 11/10/2015 [facility] HEMATOLOGY Lymphocytes 46.5 % 20.0 - 40.0 11/10/2015 [facility] HEMATOLOGY Segs 39.4 % 45.0 - 75.0 11/10/2015 [facility] HEMATOLOGY Lymphocytes # 2.8 K/CMM 1.0 - 5.5 11/10/2015 [facility] LIPIDS VLDL 18 11/10/2015 [facility] LIPIDS LDL (Calculated) 71 mg/dL <=99 mg/dL 11/10/2015 [facility] LIPIDS Chol 135 mg/dL <=199 mg/dL 11/10/2015 [facility] LIPIDS Trig 88 mg/dL <=149 mg/dL 11/10/2015 [facility] LIPIDS HDL 46 mg/dL >=61 mg/dL 11/10/2015 [facility] LIPIDS CHD Risk 2.93 3.90 - 5.80 11/10/2015 [facility] CARDIAC ENZYMES Total CK 172 unit/L 12 - 191 11/09/2015 [facility] CARDIAC ENZYMES Troponin-I 0.77 ng/mL 0.00 - 0.40 11/09/2015 Result Comment: Critical Result(s) called to Cee Reed at _11/09/2015 16:12 by_AN. Read back OK. [facility] CARDIAC ENZYMES CK MB Index 2.9 0.0 - 2.5 11/09/2015 [facility] CARDIAC ENZYMES CK MB 5.0 ng/mL 0.5 - 3.6 11/09/2015 [facility] DRUG SCREEN U Benzodia Scr Positive *ABN* (11/09/15 1:10 PM) Negative 11/09/2015 [facility] DRUG SCREEN U Cocaine Scr Negative *NA* (11/09/15 1:10 PM) Negative 11/09/2015 [facility] DRUG SCREEN U Nayeli Scr Negative *NA* (11/09/15 1:10 PM) Negative 11/09/2015 [facility] DRUG SCREEN U Amph Scr Negative *NA* (11/09/15 1:10 PM) Negative 11/09/2015 [facility] DRUG SCREEN UDS Note See Note (11/09/15 1:10 PM) 11/09/2015 [facility] DRUG SCREEN U Phencyc Scr Negative *NA* (11/09/15 1:10 PM) Negative 11/09/2015 [facility] DRUG SCREEN U Opiate Scr Positive *ABN* (11/09/15 1:10 PM) Negative 11/09/2015 [facility] DRUG SCREEN U Cannab Scr Negative *NA* (11/09/15 1:10 PM) Negative 11/09/2015 [facility] CARDIAC ENZYMES CK MB Index 2.9 0.0 - 2.5 11/09/2015 [facility] CARDIAC ENZYMES CK MB 5.2 ng/mL 0.5 - 3.6 11/09/2015 [facility] CARDIAC ENZYMES Troponin-I 0.73 ng/mL 0.00 - 0.40 11/09/2015 Result Comment: Critical Result(s) called to Jah Evans at 11/09/2015 09:47 by ttn. Read back OK. Critical Result(s) called to David Velasco in [employer] at 11/09/2015 09:48 by ttn. Read back OK. [facility] CARDIAC ENZYMES Total CK 179 unit/L 12 - 191 11/09/2015 [facility] URINE AND STOOL UA Color Ltyellow 11/09/2015 [facility] URINE AND STOOL UA Urobilinogen <=1.0 mg/dL 0.1 - 1.0 11/09/2015 [facility] URINE AND STOOL UA RBC 1 /HPF 0 - 2 11/09/2015 [facility] URINE AND STOOL UA Mucus Few /LPF None Seen /LPF 11/09/2015 [facility] URINE AND STOOL UA Sq Epi None Seen 11/09/2015 [facility] URINE AND STOOL UA Glucose Negative mg/dL Negative mg/dL 11/09/2015 [facility] URINE AND STOOL UA Protein Negative mg/dL Negative mg/dL 11/09/2015 [facility] URINE AND STOOL UA Spec Grav 1.026 <=1.030 11/09/2015 [facility] URINE AND STOOL UA pH 8.0 5.0 - 8.0 11/09/2015 [facility] URINE AND STOOL UA Turbidity Clear (11/09/15 4:41 AM) Clear 11/09/2015 [facility] URINE AND STOOL UA WBC 1 /HPF 0 - 5 11/09/2015 [facility] URINE AND STOOL UA Blood Negative (11/09/15 4:41 AM) Negative 11/09/2015 [facility] URINE AND STOOL UA Nitrite Negative (11/09/15 4:41 AM) Negative 11/09/2015 [facility] URINE AND STOOL UA Leuk Est Negative (11/09/15 4:41 AM) Negative 11/09/2015 [facility] URINE AND STOOL UA Ketones Trace mg/dL Negative mg/dL 11/09/2015 [facility] URINE AND STOOL UA Bili Negative *NA* (11/09/15 4:41 AM) Negative 11/09/2015 [facility] CARDIAC ENZYMES CK MB Index 2.1 0.0 - 2.5 11/09/2015 [facility] CARDIAC ENZYMES Total CK 163 unit/L 12 - 191 11/09/2015 [facility] CARDIAC ENZYMES CK MB 3.5 ng/mL 0.5 - 3.6 11/09/2015 [facility] CARDIAC ENZYMES Troponin-I 0.35 ng/mL 0.00 - 0.40 11/09/2015 [facility] CARDIAC ENZYMES BNP 65 pg/mL <=100 pg/mL 11/09/2015 [facility] CHEM PANEL Amylase Lvl 67 unit/L 25 - 115 11/09/2015 [facility] CHEM PANEL Lipase Lvl 111 unit/L 73 - 393 11/09/2015 [facility] CHEM PANEL A/G Ratio 1.0 0.7 - 1.6 11/09/2015 [facility] CHEM PANEL eGFR 110 mL/min/1.73m2 11/09/2015 Result Comment: The eGFR is calculated using the CKD-EPI formula. In most young, healthy individuals the eGFR will be >90 mL/min/1.73m2. The eGFR declines with age. An eGFR of 60-89 may be normal in some populations, particularly the elderly, for whom the CKD-EPI formula has not been extensively validated. Use of the eGFR is not recommended in the following populations: Individuals with unstable creatinine concentrations, including patients and those with serious co-morbid conditions. Patients with extremes in muscle mass or diet. The data above are obtained from the National Kidney Disease Education Program (NKDEP) which additionally recommends that when the eGFR is used in patients with extremes of body mass index for purposes of drug dosing, the eGFR should be multiplied by the estimated BMI. [facility] CHEM PANEL CO2 25 meq/L 24 - 32 11/09/2015 [facility] CHEM PANEL Calcium Lvl 8.1 mg/dL 8.5 - 10.5 11/09/2015 [facility] CHEM PANEL ALT 18 unit/L 0 - 65 11/09/2015 [facility] CHEM PANEL AST 13 unit/L 0 - 37 11/09/2015 [facility] CHEM PANEL Albumin Lvl 3.9 g/dL 3.5 - 5.0 11/09/2015 [facility] CHEM PANEL Total Protein 8.0 g/dL 6.4 - 8.4 11/09/2015 [facility] CHEM PANEL Bili Total 0.5 mg/dL 0.2 - 1.3 11/09/2015 [facility] CHEM PANEL B/C Ratio 10 6 - 25 11/09/2015 [facility] CHEM PANEL Globulin 4.1 g/dL 2.0 - 4.0 11/09/2015 [facility] CHEM PANEL AGAP 9.6 meq/L 10.0 - 20.0 11/09/2015 [facility] CHEM PANEL Alk Phos 47 unit/L 39 - 136 11/09/2015 [facility] CHEM PANEL Glucose Lvl 123 mg/dL 70 - 99 11/09/2015 [facility] CHEM PANEL Chloride Lvl 106 meq/L 95 - 109 11/09/2015 [facility] CHEM PANEL Sodium Lvl 137 meq/L 135 - 145 11/09/2015 [facility] CHEM PANEL BUN 8 mg/dL 7 - 11/09/2015 [facility] CHEM PANEL Creatinine Lvl 0.77 mg/dL 0.50 - 1.40 11/09/2015 [facility] CHEM PANEL Potassium Lvl 3.6 meq/L 3.5 - 5.1 11/09/2015 [facility] ENDOCRINOLOGY S Preg Negative *NA* (11/09/15 2:45 AM) Negative 11/09/2015 [facility] HEMATOLOGY D-Dimer 0.67 ug/mL FEU 11/09/2015 [facility] HEMATOLOGY Basophils # 0.1 K/CMM 0.0 - 0.2 11/09/2015 [facility] HEMATOLOGY Lymphocytes # 1.7 K/CMM 1.0 - 5.5 11/09/2015 [facility] HEMATOLOGY Monocytes # 0.6 K/CMM 0.0 - 0.8 11/09/2015 [facility] HEMATOLOGY Basophils 0.8 % 0.0 - 1.0 11/09/2015 [facility] HEMATOLOGY Segs-Bands # 6.7 K/CMM 1.5 - 8.1 11/09/2015 [facility] Monocytes 6.5 % 2.0 - 12.0 11/09/2015 [facility] HEMATOLOGY Eosinophils 0.4 % 0.0 - 4.0 11/09/2015 [facility] Lymphocytes 18.4 % 20.0 - 40.0 11/09/[address] [facility] Segs 73.9 % 45.0 - 75.0 11/09/2015 [facility] HEMATOLOGY INR 1.07 0.85 - 1.17 11/09/[address] [facility] PT 14.2 s 12.0 - 14.7 11/09/2015 [facility] HEMATOLOGY MPV 9.3 fL 7.4 - 10.4 11/09/2015 [facility] Platelet 211 K/CMM 133 - 450 11/09/[address] [facility] MCHC 32.8 g/dL 32.0 - 36.0 11/09/2015 [facility] MCH 28.5 pg 27.0 - 31.0 11/09/[address] [facility] RDW 13.8 % 11.5 - 14.5 11/09/[address] [facility] MCV 86.9 fL 80.0 - 98.0 11/09/[address] [facility] Hgb 11.6 g/dL 12.0 - 16.0 11/09/2015 [facility] HEMATOLOGY Hct 35.4 % 36.0 - 48.0 11/09/2015 [facility] HEMATOLOGY RBC 4.07 M/CMM 4.20 - 5.40 11/09/2015 [facility] HEMATOLOGY WBC 9.0 K/CMM 3.7 - 10.4 11/09/2015 [facility] Chest Pulmonary Embolism CTA Chest Pulmonary Embolism CTA CTA PULMONARY ARTERIES AND ROUTINE CT CHEST HISTORY: Chest pain TECHNIQUE: Thin collimation axial images of the pulmonary arteries and routine CT chest with IV contrast. Coronal and sagittal reformatted images were utilized. 3-D reconstructions were obtained. COMPARISON: None available. FINDINGS: No filling defect is present within the main, right and left pulmonary arteries. Moderate cardiomegaly. No pericardial effusion. The main pulmonary artery measures about 4.0 cm. No mediastinum or hilar mass or adenopathy. Nonspecific extensive perihilar airspace opacities are present reflecting pulmonary edema or pneumonia. No significant pleural effusion or pneumothorax. Small hiatal hernia. Diffuse fatty liver infiltration. Small subcentimeter posterior right hepatic cyst is present. Impression: 1. No convincing evidence of acute pulmonary embolus detected. 2. Moderate cardiomegaly. No pericardial effusion. Suspect pulmonary arterial hypertension. 3. Small hiatal hernia. 4. Diffuse fatty liver infiltration. Small subcentimeter posterior right hepatic cyst is present. SL: [id number] 11/09/2015 - - Read by: Titi Louis MD Dictated Date/time: 11/09/15 04:38 Electronically Signed by: Titi Louis MD 11/09/15 04:41 FINAL REPORT [facility] Abdomen RUQ US Abdomen RUQ US Patient Name: MAINOR MAGALLANES : 1975; Age: 40 years y/o Female MR: [id number] Study: Abdomen RUQ US 11/09/2015 2:45 AM CDT Ordering Physician: Keon Barahona MD Clinical Indication: Abdominal pain, acute; epigastric pain , active vomiting Comparison: None TECHNIQUE: Grayscale and limited color sonographic evaluation of the right upper quadrant abdomen was performed with standard technique. FINDINGS: Limited study due to patient's body habitus. LIVER: The visualized liver shows normal contour, size, and morphology with normal parenchymal echo texture. BILE DUCTS: The common bile duct measures about 3.2 mm. GALLBLADDER: No definite gallstones. Nonspecific gallbladder wall thickening measuring 5.0 mm. PANCREAS: The pancreas is not visualized obscured by overlying bowel gas. KIDNEY: The right kidney measures 11.2 cm x 5.3 cm x 5.6 cm.. IMPRESSION: 1. Limited study as above. No definite gallstones. Nonspecific gallbladder wall thickening. SL: JNGUYEN-PC 11/09/2015 - - Read by: Titi Louis MD Dictated Date/time: 11/09/15 04:00 Electronically Signed by: Titi Louis MD 11/09/15 04:01 FINAL REPORT [facility] CHEM PANEL eGFR 88 mL/min/1.73m2 09/05/2015 Result Comment: The eGFR is calculated using the CKD-EPI formula. In most young, healthy individuals the eGFR will be >90 mL/min/1.73m2. The eGFR declines with age. An eGFR of 60-89 may be normal in some populations, particularly the elderly, for whom the CKD-EPI formula has not been extensively validated. Use of the eGFR is not recommended in the following populations: Individuals with unstable creatinine concentrations, including patients and those with serious co-morbid conditions. Patients with extremes in muscle mass or diet. The data above are obtained from the National Kidney Disease Education Program (NKDEP) which additionally recommends that when the eGFR is used in patients with extremes of body mass index for purposes of drug dosing, the eGFR should be multiplied by the estimated BMI. [facility] CHEM PANEL Total Protein 8.2 g/dL 6.4 - 8.4 09/05/2015 [facility] CHEM PANEL Calcium Lvl 8.9 mg/dL 8.5 - 10.5 09/05/2015 [facility] CHEM PANEL AST 12 unit/L 0 - 37 09/05/2015 [facility] CHEM PANEL ALT 20 unit/L 0 - 65 09/05/2015 [facility] CHEM PANEL Albumin Lvl 3.9 g/dL 3.5 - 5.0 09/05/2015 [facility] CHEM PANEL Bili Total 0.4 mg/dL 0.2 - 1.3 09/05/2015 [facility] CHEM PANEL Alk Phos 52 unit/L 39 - 136 09/05/2015 [facility] CHEM PANEL BUN 10 mg/dL 7 - 22 09/05/2015 [facility] CHEM PANEL Glucose Lvl 81 mg/dL 70 - 99 09/05/2015 [facility] CHEM PANEL CO2 28 meq/L 24 - 32 09/05/2015 [facility] CHEM PANEL Creatinine Lvl 0.93 mg/dL 0.50 - 1.40 09/05/2015 [facility] CHEM PANEL Sodium Lvl 138 meq/L 135 - 145 09/05/2015 [facility] CHEM PANEL Potassium Lvl 3.8 meq/L 3.5 - 5.1 09/05/2015 [facility] CHEM PANEL Chloride Lvl 103 meq/L 95 - 109 09/05/2015 [facility] CHEM PANEL Globulin 4.3 g/dL 2.0 - 4.0 09/05/2015 [facility] CHEM PANEL A/G Ratio 0.9 0.7 - 1.6 09/05/2015 [facility] CHEM PANEL AGAP 10.8 meq/L 10.0 - 20.0 09/05/2015 [facility] CHEM PANEL B/C Ratio 11 6 - 25 09/05/2015 [facility] CHEM PANEL Lipase Lvl 181 unit/L 73 - 393 09/05/2015 [facility] ENDOCRINOLOGY S Preg Negative *NA* (09/05/15 2:10 PM) Negative 09/05/2015 [facility] HEMATOLOGY WBC 6.4 K/CMM 3.7 - 10.4 09/05/2015 [facility] HEMATOLOGY RBC 4.15 M/CMM 4.20 - 5.40 09/05/2015 [facility] HEMATOLOGY Platelet 225 K/CMM 133 - 450 09/05/2015 [facility] HEMATOLOGY MCHC 32.9 g/dL 32.0 - 36.0 09/05/2015 [facility] HEMATOLOGY RDW 13.7 % 11.5 - 14.5 09/05/2015 [facility] MCH 28.9 pg 27.0 - 31.0 09/05/2015 [facility] HEMATOLOGY Hct 36.4 % 36.0 - 48.0 09/05/2015 [facility] HEMATOLOGY MCV 87.8 fL 80.0 - 98.0 09/05/2015 [facility] HEMATOLOGY Hgb 12.0 g/dL 12.0 - 16.0 09/05/2015 [facility] HEMATOLOGY MPV 9.1 fL 7.4 - 10.4 09/05/2015 [facility] HEMATOLOGY Eosinophils # 0.4 K/CMM 0.0 - 0.5 09/05/2015 [facility] HEMATOLOGY Monocytes # 0.6 K/CMM 0.0 - 0.8 09/05/2015 [facility] HEMATOLOGY Segs-Bands # 2.9 K/CMM 1.5 - 8.1 09/05/2015 [facility] HEMATOLOGY Lymphocytes # 2.5 K/CMM 1.0 - 5.5 09/05/2015 [facility] HEMATOLOGY Basophils # 0.1 K/CMM 0.0 - 0.2 09/05/2015 [facility] HEMATOLOGY Segs 45.4 % 45.0 - 75.0 09/05/2015 [facility] HEMATOLOGY Basophils 0.9 % 0.0 - 1.0 09/05/2015 [facility] HEMATOLOGY Eosinophils 5.5 % 0.0 - 4.0 09/05/2015 [facility] HEMATOLOGY Lymphocytes 38.7 % 20.0 - 40.0 09/05/2015 [facility] HEMATOLOGY Monocytes 9.5 % 2.0 - 12.0 09/05/2015 [facility] URINE AND STOOL UA Nitrite Negative (09/05/15 2:10 PM) Negative 09/05/2015 [facility] URINE AND STOOL UA Leuk Est Negative (09/05/15 2:10 PM) Negative 09/05/2015 [facility] URINE AND STOOL UA Bili Negative *NA* (09/05/15 2:10 PM) Negative 09/05/2015 [facility] URINE AND STOOL UA Blood Negative (09/05/15 2:10 PM) Negative 09/05/2015 [facility] URINE AND STOOL UA pH 7.0 5.0 - 8.0 09/05/2015 [facility] URINE AND STOOL UA Protein Negative mg/dL Negative mg/dL 09/05/2015 [facility] URINE AND STOOL UA Ketones Negative mg/dL Negative mg/dL 09/05/2015 [facility] URINE AND STOOL UA Glucose Negative mg/dL Negative mg/dL 09/05/2015 [facility] URINE AND STOOL UA Sq Epi Occasional /LPF Few /LPF 09/05/2015 [facility] URINE AND STOOL UA RBC null 0 - 2 09/05/2015 [facility] URINE AND STOOL UA WBC null 0 - 5 09/05/2015 [facility] URINE AND STOOL UA Urobilinogen <=1.0 mg/dL 0.1 - 1.0 09/05/2015 [facility] URINE AND STOOL UA Color Ltyellow 09/05/2015 [facility] URINE AND STOOL UA Spec Grav 1.008 <=1.030 09/05/2015 [facility] URINE AND STOOL UA Turbidity Clear (09/05/15 2:10 PM) Clear 09/05/2015 [facility] Abdomen/Pelvis wo IV contrast CT Abdomen/Pelvis wo IV contrast CT Patient Name: MAINOR MAGALLANES : 1975; Age: 40 years y/o Female MR: [id number] Study: Abdomen/Pelvis wo IV contrast CT 09/05/2015 1:56 PM CDT Ordering Physician: Gatito Barrera Comparison: 11/06/2012 Clinical Indication: Severe onset of right flank pain; kidney stone Multiple computerized axial tomograms of the abdomen and pelvis were obtained without contrast utilizing renal stone protocol. 2-D sagittal and coronal reformation reconstruction images were obtained. The use of this protocol may excluded a portion of the upper abdominal viscera. Visualized lung bases clear. Mild to moderate cardiomegaly. Thoracic and lumbar spondylosis are noted associated with degenerative arthropathy of the lower lumbar apophyseal joints. A 3 mm calculus is noted at the superior half of the right kidney. No obstructive uropathic change is noted at the right kidney. No left renal or abdominal ureteral calculus is noted. Tiny cyst at the dorsal dome of the right hepatic lobe. The visualized upper abdominal viscera are otherwise unremarkable. No free fluid or pneumoperitoneum. The appendix is normal. Gallbladder unremarkable. Tiny fat filled umbilical hernia is noted superimposed upon focal laxity and attenuation of the ventral abdominal wall in the midline. No pelvic ureteral or bladder calculus is noted. Uterus and adnexa are unremarkable. A few diverticula are noted at the mid sigmoid colon. Degenerative disc disease is noted at L5-S1. Lumbar spondylosis is noted at the L5-S1 level. IMPRESSION: 1. A 3 mm nonobstructing calculus is noted at the right kidney. No left renal, ureteral or bladder calculus. 2. No acute abnormality at the abdomen or pelvis. SL: [id number] 09/05/2015 - - Read by: Alex Yang MD Dictated Date/time: 09/05/15 15:44 Electronically Signed by: Alex Yang MD 09/05/15 15:49 FINAL REPORT [facility] Ankle 3 views Ankle 3 views Left ankle, 3 views: Exam reason: Pain and swelling. Soft tissue swelling at the deltoid ligament is noted. 4 mm well-corticated ossicle is noted inferior to the tip of the left fibula. A 2.5 x 3 mm well- corticated ossicle is noted inferomedial to the tip of the medial malleolus. The ankle mortise is well-maintained. There is no acute fracture or dislocation noted. Joint fluid collections are noted at the anterior and posterior joint compartment of the tibiotalar joint. Degenerative changes are noted at the tarsometatarsal joints and the intertarsal articulations of the hindfoot. SL:12 02/06/2014 - - Read by: Alex Yang MD Dictated Date/time: 02/06/14 13:08 Electronically Signed by: Alex Yang MD 02/06/14 13:13 FINAL REPORT [facility] Shoulder series Shoulder series Right shoulder, 3 views: CLINICAL HISTORY: Trauma No acute fracture, dislocation, or focal osseous lesion is appreciated. Mild osteoarthritis involving the AC joint with a tiny old well-corticated fragment superiorly. The soft tissues are normal. Further evaluation could be obtained with MRI if clinically indicated and no contraindications exist. SL:17 04/21/2013 - - Read by: Hermelindo Cuenca Dictated Date/time: 04/21/13 19:45 Electronically Signed by: Hermelindo Cuenca MD 04/21/13 19:46 FINAL REPORT [facility] Hand AP lateral oblique Hand AP lateral oblique EXAM: XR LEFT HAND 3 VIEWS DATE: February 05, 2013 at 939 INDICATION: Trauma COMPARISON: None. TECHNIQUE: 3 views of the left hand DISCUSSION: No acute fracture or malalignment is identified. Joint spaces and bone mineral density are preserved. No soft tissue abnormality is identified. IMPRESSION: No abnormality identified. 02/05/2013 - - This report was dictated by a Screen Printer Helper/Fellow. I have personally reviewed the images as well as the Resident's interpretation and agree with the findings. Read by: Vanesa Macedo Resident: Vanesa Macedo Dictated Date/time: 02/05/13 09:51 Electronically Signed by: Elisabet Quezada MD 02/05/13 14:16 FINAL REPORT [facility] CHEMISTRY Bili Direct null 0.0 - 0.3 11/06/2012 Normal [facility] CHEMISTRY A/G Ratio 0.9 0.7 - 1.6 11/06/2012 Normal [facility] CHEMISTRY Globulin 3.9 g/dL 2.0 - 4.0 11/06/2012 Normal [facility] CHEMISTRY B/C Ratio 10 6 - 25 11/06/2012 Normal [facility] CHEMISTRY AGAP 10.9 meq/L 10.0 - 20.0 11/06/2012 Normal [facility] CHEMISTRY eGFR 81 mL/min/1.73m2 11/06/2012 NA 1Result Comment: The eGFR is calculated using the CKD-EPI formula. In most young, healthy individuals the eGFR will be >90 mL/min/1.73m2. The eGFR declines with age. An eGFR of 60-89 may be normal in some populations, particularly the elderly, for whom the CKD-EPI formula has not been extensively validated. Use of the eGFR is not recommended in the following populations: Individuals with unstable creatinine concentrations, including patients and those with serious co-morbid conditions. Patients with extremes in muscle mass or diet. The data above are obtained from the National Kidney Disease Education Program (NKDEP) which additionally recommends that when the eGFR is used in patients with extremes of body mass index for purposes of drug dosing, the eGFR should be multiplied by the estimated BMI. [facility] CHEMISTRY AST 12 unit/L 0 - 37 11/06/2012 Normal [facility] CHEMISTRY Calcium Lvl 8.3 mg/dL 8.5 - 10.5 11/06/2012 LOW [facility] CHEMISTRY CO2 24 meq/L 24 - 32 11/06/2012 Normal [facility] CHEMISTRY Glucose Lvl 93 mg/dL 70 - 99 11/06/2012 Normal 2Interpretive Data: Adult reference range values reflect the clinical guidelines of the [place] [employer]. [facility] CHEMISTRY Albumin Lvl 3.7 g/dL 3.5 - 5.0 11/06/2012 Normal [facility] CHEMISTRY Total Protein 7.6 g/dL 6.4 - 8.4 11/06/2012 Normal [facility] CHEMISTRY Creatinine Lvl 0.9 mg/dL 0.5 - 1.4 11/06/2012 Normal [facility] CHEMISTRY BUN 9 mg/dL 7 - 22 11/06/2012 Normal [facility] CHEMISTRY Alk Phos 55 unit/L 39 - 136 11/06/2012 Normal [facility] CHEMISTRY ALT 16 unit/L 0 - 65 11/06/2012 Normal [facility] CHEMISTRY Bili Total 0.4 mg/dL 0.2 - 1.3 11/06/2012 Normal [facility] CHEMISTRY Sodium Lvl 140 meq/L 135 - 145 11/06/2012 Normal [facility] CHEMISTRY Chloride Lvl 109 meq/L 95 - 109 11/06/2012 Normal [facility] CHEMISTRY Potassium Lvl 3.9 meq/L 3.5 - 5.1 11/06/2012 Normal [facility] HEMATOLOGY Lymphocytes # 2.7 K/CMM 1.0 - 5.5 11/06/2012 Normal [facility] HEMATOLOGY Segs-Bands # 2.4 K/CMM 1.5 - 8.1 11/06/2012 Normal [facility] HEMATOLOGY Eosinophils # 0.3 K/CMM 0.0 - 0.5 11/06/2012 Normal [facility] HEMATOLOGY Basophils # 0.0 K/CMM 0.0 - 0.2 11/06/2012 Normal [facility] HEMATOLOGY Monocytes # 0.5 K/CMM 0.0 - 0.8 11/06/2012 Normal [facility] HEMATOLOGY Lymphocytes 45.7 % 20.0 - 40.0 11/06/2012 HI [facility] HEMATOLOGY Basophils 0.6 % 0.0 - 1.0 11/06/2012 Normal [facility] HEMATOLOGY Eosinophils 5.3 % 0.0 - 4.0 11/06/2012 HI [facility] HEMATOLOGY Monocytes 8.0 % 2.0 - 12.0 11/06/2012 Normal [facility] HEMATOLOGY Segs 40.4 % 45.0 - 75.0 11/06/2012 LOW [facility] HEMATOLOGY PTT 35.0 s 22.9 - 35.8 11/06/2012 Normal 4Interpretive Data: Heparin Therapeutic Range: 57 - 92 Seconds [facility] HEMATOLOGY PT 15.3 s 12.0 - 14.7 11/06/2012 HI [facility] HEMATOLOGY INR 1.19 0.85 - 1.17 11/06/2012 HI 3Interpretive Data: RECOMMENDED RANGES FOR PROTIME INR: 2.0-3.0 for most medical and surgical thromboembolic states. 2.5-3.5 for artificial heart valves and recurrent embolism. INR SHOULD BE USED ONLY FOR PATIENTS ON STABLE ANTICOAGULANT THERAPY. [facility] HEMATOLOGY MPV 9.6 fL 7.4 - 10.4 11/06/2012 Normal [facility] HEMATOLOGY RDW 13.9 % 11.5 - 14.5 11/06/2012 Normal [facility] HEMATOLOGY Platelet 183 K/CMM 133 - 450 11/06/2012 Normal [facility] HEMATOLOGY MCH 28.8 pg 27.0 - 31.0 11/06/2012 Normal [facility] HEMATOLOGY Hct 34.8 % 36.0 - 48.0 11/06/2012 LOW [facility] HEMATOLOGY MCV 88.4 fL 81.0 - 99.0 11/06/2012 Normal [facility] HEMATOLOGY MCHC 32.5 g/dL 32.0 - 36.0 11/06/2012 Normal [facility] HEMATOLOGY RBC 3.94 M/CMM 4.20 - 5.40 11/06/2012 LOW [facility] HEMATOLOGY Hgb 11.3 g/dL 12.0 - 16.0 11/06/2012 LOW [facility] HEMATOLOGY WBC 5.9 K/CMM 3.7 - 10.4 11/06/2012 Normal [facility] CHEMISTRY U Preg Negative (11/05/2012 21:50:00) Negative 11/06/2012 Normal [facility] URINALYSIS UA Urobilinogen <=1.0 mg/dL
*NA*
(11/05/2012 21:50:00) <sup> </sup> 0.1 - 1.0 11/06/2012 NA [facility] URINALYSIS UA Color Yellow *NA* (11/05/2012 21:50:00) Yellow 11/06/2012 [facility] URINALYSIS UA Turbidity Clear (11/05/2012 21:50:00) Clear 11/06/2012 Normal [facility] URINALYSIS UA Bili Negative *NA* (11/05/2012 21:50:00) Negative 11/06/2012 [facility] URINALYSIS UA Ketones Negative mg/dL *NA* (11/05/2012 21:50:00) Negative 11/06/2012 [facility] URINALYSIS UA Blood Negative (11/05/2012 21:50:00) Negative 11/06/2012 Normal [facility] URINALYSIS UA Spec Grav 1.023 <=1.030 11/06/2012 Normal [facility] URINALYSIS UA pH 6.0 5.0 - 8.0 11/06/2012 Normal [facility] URINALYSIS UA Nitrite Negative (11/05/2012 21:50:00) Negative 11/06/2012 Normal [facility] URINALYSIS UA Leuk Est Trace *ABN* (11/05/2012 21:50:00) Negative 11/06/2012 ABN [facility] URINALYSIS UA Glucose Negative mg/dL *NA* (11/05/2012 21:50:00) Negative 11/06/2012 [facility] URINALYSIS UA Protein Negative mg/dL (11/05/2012 21:50:00) Negative 11/06/2012 Normal [facility] URINALYSIS UA WBC 1 /HPF 0 - 5 11/06/2012 Normal [facility] URINALYSIS UA Sq Epi Occasional /LPF *NA* (11/05/2012 21:50:00) Few 11/06/2012 NA [facility] URINALYSIS UA RBC 2 /HPF 0 - 2 11/06/2012 Normal [facility] Abdomen/Pelvis w contrast CT Abdomen/Pelvis w contrast CT CT SCAN OF THE ABDOMEN AND PELVIS WITH CONTRAST. HX: Abdominal pain, acute. COMPARISON: [None] Technique: Helical CT images were obtained from the domes the diaphragms to the symphysis pubis following the administration of oral and intravenous contrast. ABDOMEN AND PELVIS: The lung bases are clear. There are no pleural effusions. The heart is normal in size. Grossly normal gallbladder. The liver, spleen, pancreas, and adrenals are normal in appearance. Punctate superior pole right renal calculus is present. The kidneys show good, symmetrical, excretion without hydronephrosis. grossly normal appendix. The gastrointestinal structures are unremarkable. No abdominal masses, adenopathy, ascites, or fluid collections are seen. Grossly normal uterus and adnexa. The bladder is grossly unremarkable. IMPRESSION: 1. No definite acute focal abnormality detected. 2. Punctate superior pole right renal calculus. No definite obstructive uropathy. SL: 12 11/06/2012 - - Read by: Titi Louis Dictated Date/time: 11/06/12 02:07 Electronically Signed by: Titi Louis MD 11/06/12 02:11 FINAL REPORT [facility] Vital Signs Vital Sign Value Date Comments Source Systolic (mm Hg) 132 05/18/2018 [facility] Diastolic (mm Hg) 87 05/18/2018 [facility] Heart Rate 62 05/18/2018 [facility] Temperature Oral (F) 36.83 Brigid 05/18/2018 [facility] Respitory Rate 18 05/18/2018 [facility] Height 172.7 cm 05/18/2018 [facility] Weight 102.967 05/18/2018 [facility] Systolic (mm Hg) 118 09/25/2017 [facility] Diastolic (mm Hg) 68 09/25/2017 [facility] Respitory Rate 19 09/25/2017 [facility] Temperature Oral (F) 98.8 F 09/25/2017 [facility] Heart Rate 74 09/25/2017 [facility] Weight 95.455 09/25/2017 [facility] Systolic (mm Hg) 130 09/25/2017 [facility] Diastolic (mm Hg) 74 09/25/2017 [facility] Heart Rate 69 09/25/2017 [facility] Respitory Rate 18 09/25/2017 [facility] Temperature Oral (F) 98.7 F 09/25/2017 [facility] Systolic (mm Hg) 117 07/16/2017 [facility] Diastolic (mm Hg) 84 07/16/2017 [facility] Temperature Oral (F) 98.9 F 07/16/2017 [facility] Heart Rate 71 07/16/2017 [facility] Respitory Rate 18 07/16/2017 [facility] Temperature Oral (F) 99.2 F 07/16/2017 [facility] Heart Rate 74 07/16/2017 [facility] Respitory Rate 18 07/16/2017 [facility] Systolic (mm Hg) 114 07/16/2017 [facility] Diastolic (mm Hg) 80 07/16/2017 [facility] Temperature Oral (F) 98.3 F 07/16/2017 [facility] Heart Rate 62 07/16/2017 [facility] Respitory Rate 18 07/16/2017 [facility] Systolic (mm Hg) 112 07/16/2017 [facility] Diastolic (mm Hg) 75 07/16/2017 [facility] Height 167.64 cm 07/15/2017 [facility] Weight 96.449 07/15/2017 [facility] BMI Calculated 34.32 07/15/2017 [facility] BMI Calculated 33.97 07/15/2017 [facility] Weight 95.455 07/15/2017 [facility] Height 167.64 cm 07/15/2017 [facility] Temperature Oral (F) 98.3 F 04/29/2017 [facility] Heart Rate 69 04/29/2017 [facility] Respitory Rate 20 04/29/2017 [facility] Systolic (mm Hg) 126 04/29/2017 [facility] Diastolic (mm Hg) 84 04/29/2017 [facility] Temperature Oral (F) 99.5 F 04/28/2017 [facility] Respitory Rate 18 04/28/2017 [facility] Heart Rate 78 04/28/2017 [facility] Systolic (mm Hg) 136 04/28/2017 [facility] Diastolic (mm Hg) 88 04/28/2017 [facility] Temperature Oral (F) 98.9 F 07/06/2016 [facility] Heart Rate 64 07/06/2016 [facility] Respitory Rate 18 07/06/2016 [facility] Systolic (mm Hg) 144 07/06/2016 [facility] Diastolic (mm Hg) 91 07/06/2016 [facility] Weight 100 07/05/2016 [facility] Respitory Rate 16 07/05/2016 [facility] Temperature Oral (F) 98.3 F 07/05/2016 [facility] Height 170.18 cm 07/05/2016 [facility] BMI Calculated 34.53 07/05/2016 [facility] Systolic (mm Hg) 133 07/05/2016 [facility] Diastolic (mm Hg) 83 07/05/2016 [facility] Heart Rate 79 07/05/2016 [facility] Temperature Oral (F) 98.7 F 11/10/2015 [facility] Heart Rate 74 11/10/2015 [facility] Respitory Rate 18 11/10/2015 [facility] Systolic (mm Hg) 123 11/10/2015 [facility] Diastolic (mm Hg) 89 11/10/2015 [facility] Temperature Oral (F) 98.8 F 11/10/2015 [facility] Systolic (mm Hg) 127 11/10/2015 [facility] Diastolic (mm Hg) 89 11/10/2015 [facility] Respitory Rate 18 11/10/2015 [facility] Heart Rate 84 11/10/2015 [facility] Respitory Rate 18 11/10/2015 [facility] Temperature Oral (F) 98.8 F 11/10/2015 [facility] Heart Rate 77 11/10/2015 [facility] Systolic (mm Hg) 121 11/10/2015 [facility] Diastolic (mm Hg) 81 11/10/2015 [facility] Weight 96.903 11/09/2015 [facility] Height 167.64 cm 11/09/2015 [facility] BMI Calculated 37.2 11/09/2015 [facility] Weight 104.545 11/09/2015 [facility] Respitory Rate 20 09/05/2015 [facility] Systolic (mm Hg) 118 09/05/2015 [facility] Diastolic (mm Hg) 79 09/05/2015 [facility] Temperature Oral (F) 98.3 F 09/05/2015 [facility] Heart Rate 73 09/05/2015 [facility] BMI Calculated 37.2 09/05/2015 [facility] Height 167.64 cm 09/05/2015 [facility] Weight 104.545 09/05/2015 [facility] Heart Rate 75 09/05/2015 [facility] Systolic (mm Hg) 119 09/05/2015 [facility] Diastolic (mm Hg) 78 09/05/2015 [facility] Respitory Rate 20 09/05/2015 [facility] Temperature Oral (F) 98.7 F 09/05/2015 [facility] Diastolic (mm Hg) 82 02/06/2014 [facility] Heart Rate 78 02/06/2014 [facility] Temperature Oral (F) 98.3 F 02/06/2014 [facility] Systolic (mm Hg) 134 02/06/2014 [facility] Respitory Rate 16 02/06/2014 [facility] Systolic (mm Hg) 132 02/06/2014 [facility] Diastolic (mm Hg) 84 02/06/2014 [facility] Respitory Rate 16 02/06/2014 [facility] Heart Rate 70 02/06/2014 [facility] Temperature Oral (F) 98.4 F 02/06/2014 [facility] Weight 104.545 02/06/2014 [facility] Height 167.64 cm 02/06/2014 [facility] BMI Calculated 37.2 02/06/2014 [facility] Heart Rate 82 02/06/2014 [facility] Respitory Rate 16 02/06/2014 [facility] Systolic (mm Hg) 155 02/06/2014 [facility] Diastolic (mm Hg) 85 02/06/2014 [facility] Diastolic (mm Hg) 89 04/22/2013 [facility] Heart Rate 77 04/22/2013 [facility] Temperature Oral (F) 97.9 F 04/22/2013 [facility] Systolic (mm Hg) 128 04/22/2013 [facility] Respitory Rate 18 04/22/2013 [facility] Height 167.64 cm 04/21/2013 [facility] Weight 104.545 04/21/2013 [facility] Temperature Oral (F) 98.5 F 04/21/2013 [facility] Diastolic (mm Hg) 79 04/21/2013 [facility] Respitory Rate 18 04/21/2013 [facility] Heart Rate 96 04/21/2013 [facility] Systolic (mm Hg) 131 04/21/2013 [facility] Systolic (mm Hg) 139 02/05/2013 [facility] Diastolic (mm Hg) 96 02/05/2013 [facility] Respitory Rate 18 02/05/2013 [facility] Heart Rate 67 02/05/2013 [facility] Temperature Oral (F) 97.9 F 02/05/2013 [facility] Weight 104.545 02/05/2013 [facility] Height 167.64 cm 02/05/2013 [facility] Diastolic (mm Hg) 92 02/05/2013 [facility] Heart Rate 63 02/05/2013 [facility] Respitory Rate 18 02/05/2013 [facility] Temperature Oral (F) 98.8 F 02/05/2013 [facility] Systolic (mm Hg) 153 02/05/2013 [facility] Weight 104.545 11/06/2012 [facility] Height 167.64 cm 11/06/2012 [facility] Weight 90.909 02/11/2012 [facility] Height 167.64 cm 02/11/2012 [facility] Respitory Rate 16.0 01/30/2011 [facility] Peripheral Pulse Rate 77.0 01/30/2011 [facility] Diastolic (mm Hg) 66.0 01/30/2011 [facility] Systolic (mm Hg) 122.0 01/30/2011 [facility] Temperature Oral (F) 99.6 F 01/30/2011 [facility] Diastolic (mm Hg) 84.0 01/30/2011 [facility] Respitory Rate 18.0 01/30/2011 [facility] Peripheral Pulse Rate 67.0 01/30/2011 [facility] Systolic (mm Hg) 138.0 01/30/2011 [facility] Weight 95.455 01/30/2011 [facility] Height 175.26 cm 01/30/2011 [facility] Systolic (mm Hg) 129.0 01/30/2011 [facility] Diastolic (mm Hg) 86.0 01/30/2011 [facility] Peripheral Pulse Rate 77.0 01/30/2011 [facility] Respitory Rate 18.0 01/30/2011 [facility] Temperature Oral (F) 98.6 F 01/30/2011 [facility] Encounters Location Location Details Encounter Type Encounter Number Reason For Visit Attending Provider ADM Date DC Date Status Source [facility] Emergency [id number] MI KO 02/27/2009 02/27/2009 Active [facility] Emergency [id number] AUDREY CHAMPION 01/29/2011 01/30/[address] [facility] [place] [place] Emergency [id number] JOHN TREY 02/11/2012 02/11/2012 Active [facility] Emergency [id number] LEFT UPPER SIDE PAIN PAN CONCETTA 11/05/2012 11/06/2012 Active [facility] Emergency [id number] HERMILA BRENNAN 02/05/2013 02/05/[address] [facility] [place] [place] Emergency [id number] SHOULDER PAIN CHIOMA LYNCH 04/21/2013 04/21/2013 Active [facility] [id number] John Carranza 02/06/2014 02/06/2014 [facility] [id number] Alan Elton 09/05/2015 09/05/2015 [facility] Inpatient [id number] Melvin Mckay 11/09/2015 11/10/2015 [facility] Emergency [id number] Jackson Nuñez 07/05/2016 07/06/2016 [facility] Emergency [id number] Wilfrido Cardggal 04/28/2017 04/29/2017 [facility] Inpatient [id number] Jeny Cowan 07/15/2017 07/16/2017 [facility] [place] Refill [id number] Cadence Cunha Physician 07/16/2017 [facility] [place] Refill [id number] Cadence Cunha Physician 07/25/2017 [facility] [place] [facility] Emergency [id number] 09/25/2017 09/25/2017 [facility] Emergency [id number] Martha Acevedoooqi 09/25/2017 09/25/2017 [facility] Orders Only [id number] Valorie Craven PA 01/16/2018 [facility] Office Visit [id number] Valorie Craven PA 01/16/2018 01/16/2018 [facility] Ancillary Procedure [id number] Valorie Craven PA 01/16/2018 01/16/2018 [facility] Office Visit [id number] Raffy De La Garza MD 01/30/2018 01/30/2018 [facility] Same Day Same Day [id number] Otoniel Obregon NP 02/02/2018 02/02/2018 [facility] Same Day Office Visit [id number] Claudia Ching PA 03/28/2018 03/28/2018 [facility] Travel [id number] 05/18/2018 [facility] Office Visit [id number] Raffy De La Garza MD 05/18/2018 05/18/2018 [facility] Ancillary Procedure [id number] Raffy De La Garza MD 05/18/2018 05/18/2018 [facility] Procedures Procedure Code Date Perfomer Comments Source XRAY CHEST 2 VIEWS 00458 05/18/2018 [facility] XRAY CHEST 2 VIEWS 66805 01/16/2018 [facility] HEMOGLOBIN A1C 87935 01/16/2018 [facility] LIPID PROFILE 47852 01/16/2018 [facility] COMPREHENSIVE METABOLIC PANEL(DBIL NOT INCLUDED) 75261 01/16/2018 [facility] TSH 06040 01/16/2018 [facility] CBC/DIFF 00173 01/16/2018 [facility] HEPATITIS PANEL 16828 01/16/2018 [facility] SYPHILIS MONITOR FOR TREATMENT 04994 01/16/2018 [facility] HIV-1/HIV-2 ROUTINE SCREENING 55857 01/16/2018 [facility] B NATRIURETIC PEPT 28110 01/16/2018 [facility]
--- OUTSIDE RECORDS SUMMARY | 2018-08-06 10:04 | XMS REPORT | Summary of Care ---
Author Author [facility] Organization [facility] Address Unknown Phone Unavailable Encounter FLORIAN Storey(CHERIE) [phone] Date(s): 07/14/17 - 07/16/17 [facility] [id number] [place] [address]- [phone] Encounter Diagnosis Hypertensive heart disease with heart failure (Final) - 07/24/17 Heart failure, unspecified (Final) - Discharge Disposition: Home or Self Care Attending Physician: Jeny Cowan MD Admitting Physician: Jeny Cowan MD Vital Signs 1 2 3 Most recent to oldest [Reference Range]: 167.64 cm (07/15/17 6:37 AM) 167.64 cm (07/14/17 10:26 PM) Height 98.9 DegF (07/16/17 11:28 AM) 99.2 DegF *HI* (07/16/17 7:42 AM) 98.3 DegF (07/16/17 4:00 AM) Temperature Oral [96.4-99.1 DegF] 117/84 mmHg (07/16/17 11:28 AM) 114/80 mmHg (07/16/17 7:42 AM) 112/75 mmHg (07/16/17 4:00 AM) Blood Pressure [90-140/60-90 mmHg] 18 BRMIN (07/16/17 11:28 AM) 18 BRMIN (07/16/17 7:42 AM) 18 BRMIN (07/16/17 4:00 AM) Respiratory Rate [14-20 BRMIN] 71 bpm (07/16/17 11:28 AM) 74 bpm (07/16/17 7:42 AM) 62 bpm (07/16/17 4:00 AM) Peripheral Pulse Rate [60-100 bpm] 96.449 kg (07/15/17 6:37 AM) 95.455 kg (07/14/17 10:26 PM) Weight 34.32 m2 (07/15/17 6:37 AM) 33.97 m2 (07/14/17 10:26 PM) Body Mass Index Problem List Condition Effective Dates Status Health Status Informant HTN - Resolved Hypertension(Confirm ed) Mitral valve Resolved prolapse(Confirmed) Allergies, Adverse Reactions, Alerts Substance Reaction Severity Status NKDA Active Medications aspirin 81 mg tablet, chewable 81 mg, Route: PO, Drug form: CHEWTAB, Daily, Dosing Weight 96.449, kg, Start aron e: 07/15/17 9:00:00 HYDROMETER FINISHER, Duration: 30 day, Stop date: 08/13/17 9:00:00 CDT Start Date: 07/15/17 Stop Date: 07/15/17 Status: Canceled aspirin 81 mg tablet, chewable 324 mg, Route: PO, Drug form: CHEWTAB, ONCE, Dosing Weight 95.455, kg, Priority: STAT, Start date: 07/15/17 2:44:00 HYDROMETER FINISHER, Stop date: 07/15/17 2:44:00 HYDROMETER FINISHER Start Date: 07/15/17 Stop Date: 07/15/17 Status: Completed Aspirin Enteric Coated 325 mg, 1 tab, Route: PO, Drug form: ECTAB, Daily, Dosing Weight 96.449, kg, Sta rt date: 07/15/17 9:00:00 HYDROMETER FINISHER, Duration: 30 day, Stop date: 08/13/17 9:00:00 CDT Notes: (Do Not Crush) Do not crush or chew. Start Date: 07/15/17 Stop Date: 07/16/17 Status: Discontinued famotidine 20 mg oral tablet 20 mg, 1 tab, Route: PO, Drug form: TAB, BID, Dosing Weight 96.449, kg, Start da te: 07/15/17 9:00:00 HYDROMETER FINISHER, Duration: 30 day, Stop date: 08/13/17 17:00:00 CDT Notes: (Same as: Pepcid) Start Date: 07/15/17 Stop Date: 07/16/17 Status: Discontinued fentaNYL 50 microgram, Route: IV, ONCE, Dosing Weight 95.455, kg, Start date: 07/15/17 6: 00:00 HYDROMETER FINISHER, Stop date: 07/15/17 6:00:00 HYDROMETER FINISHER Start Date: 07/15/17 Stop Date: 07/15/17 Status: Completed fentaNYL 50 microgram, Route: IVP, ONCE, Dosing Weight 95.455, kg, Priority: STAT, Start date: 07/15/17 0:35:00 HYDROMETER FINISHER, Stop date: 07/15/17 0:35:00 HYDROMETER FINISHER Start Date: 07/15/17 Stop Date: 07/15/17 Status: Completed Lasix 40 mg, Route: IVP, Drug form: INJ, ONCE, Dosing Weight 95.455, kg, Priority: STA T, Start date: 07/15/17 2:30:00 HYDROMETER FINISHER, Stop date: 07/15/17 2:30:00 HYDROMETER FINISHER Start Date: 07/15/17 Stop Date: 07/15/17 Status: Completed Lasix 40 mg, 4 mL, Route: IV, Drug form: INJ, TID, Dosing Weight 96.449, kg, Start aron e: 07/16/17 13:00:00 HYDROMETER FINISHER, Duration: 30 day, Stop date: 08/15/17 9:00:00 CDT Notes: (Same as: Lasix) MEDICATION WASTE Product Size: 40 mgProduct Was giorgio: ___ mg Start Date: 07/16/17 Stop Date: 07/16/17 Status: Discontinued Lasix 40 mg, 4 mL, Route: IV, Drug form: INJ, Q12H, Dosing Weight 96.449, kg, Start da te: 07/15/17 9:00:00 HYDROMETER FINISHER, Duration: 30 day, Stop date: 08/13/17 21:00:00 CDT Notes: (Same as: Lasix) MEDICATION WASTE Product Size: 40 mgProduct Was giorgio: ___ mg Start Date: 07/15/17 Stop Date: 07/16/17 Status: Discontinued Lasix 20 mg oral tablet 20 mg=1 tab, PO, Daily, # 30 tab, 2 Refill(s), Pharmacy: [id number] Start Date: 07/16/17 Stop Date: 10/14/17 Status: Ordered metoprolol tartrate 25 mg, 1 tab, Route: PO, Drug form: TAB, Q12H, Dosing Weight 96.449, kg, Start d ate: 07/15/17 9:00:00 HYDROMETER FINISHER, Duration: 30 day, Stop date: 08/13/17 21:00:00 CDT Notes: (Same as: Lopressor) Start Date: 07/15/17 Stop Date: 07/16/17 Status: Discontinued morphine Sulfate 2 mg, Route: IVP, Q15Min, Dosing Weight 96.449, kg, PRN Chest Pain, Start date: 07/15/17 6:52:00 HYDROMETER FINISHER, Duration: 2 doses or times, Stop date: Limited # of times Start Date: 07/15/17 Stop Date: 07/15/17 Status: Deleted morphine Sulfate 6 mg, 3 mL, Route: PO, Drug form: SOLN, Q15Min, PRN Chest Pain, Start date: 06/20 12/03 7:57:00 HYDROMETER FINISHER, Duration: 2 doses or times, Stop date: 08/14/17 7:56:00 CDT Notes: (Same as:MORPhine Sulfate) Start Date: 07/15/17 Stop Date: 07/16/17 Status: Discontinued nitroglycerin SL Tab 0.4 mg, 1 tab, Route: SL, Drug form: TAB, Q5Min, Dosing Weight 96.449, kg, PRN C hest Pain, Start date: 07/15/17 6:52:00 HYDROMETER FINISHER, Duration: 3 doses or times, Stop da te: 08/14/17 6:51:00 CDT Notes: (Same as:Nitroquick, Nitrostat)"Do Not Crush" Sublingual tablet Start Date: 07/15/17 Stop Date: 07/16/17 Status: Discontinued ondansetron 4 mg, 1 tab, Route: PO, Drug form: TAB, Q8H, Dosing Weight 96.449, kg, PRN Nause a & Vomiting, Start date: 07/15/17 6:52:00 HYDROMETER FINISHER, Duration: 30 day, Stop date: 08/14/17 6:51:00 CDT Notes: (Same as: Zofran) Start Date: 07/15/17 Stop Date: 07/16/17 Status: Discontinued Plavix 75 mg, 1 tab, Route: PO, Drug form: TAB, Daily, Dosing Weight 96.449, kg, Start date: 07/15/17 9:00:00 HYDROMETER FINISHER, Duration: 30 day, Stop date: 08/13/17 9:00:00 CDT Notes: (Same As: Plavix) Start Date: 07/15/17 Stop Date: 07/15/17 Status: Discontinued Saline Flush 0.9% 10 ml, Route: IVP, Drug Form: INJ, Dosing Weight 96.449, kg, PRN, PRN Line Flush , Start date: 07/15/17 6:52:00 HYDROMETER FINISHER, Duration: 30 day, Stop date: 08/14/17 7:51:0 0 CDT Notes: (Same as: BD Posiflush) Start Date: 07/15/17 Stop Date: 07/16/17 Status: Discontinued Saline Flush 0.9% 10 ml, Route: IVP, Drug Form: INJ, Dosing Weight 96.449, kg, Q12H, Start date: 0 07/15/17 9:00:00 HYDROMETER FINISHER, Duration: 30 day, Stop date: 08/13/17 21:00:00 CDT Notes: (Same as: BD Posiflush) Start Date: 07/15/17 Stop Date: 07/16/17 Status: Discontinued Tylenol 650 mg, 2 tab, Route: PO, Drug form: TAB, Q6H, Dosing Weight 96.449, kg, PRN Ernesto n Score 1-3, Start date: 07/16/17 9:56:00 HYDROMETER FINISHER, Duration: 30 day, Stop date: 07/19 9:55:00 CDT Notes: Do not exceed 4 gm/day. (Same as: Tylenol) Start Date: 07/16/17 Stop Date: 07/16/17 Status: Discontinued Results ELECTROLYTES 1 2 3 Most recent to oldest [Reference Range]: 142 mEq/L (07/15/17 7:11 AM) 141 mEq/L (07/15/17 12:06 AM) Sodium Lvl [135-145 mEq/L] 3.8 mEq/L (07/15/17 7:11 AM) 3.8 mEq/L (07/15/17 12:06 AM) Potassium Lvl [3.5-5.1 mEq/L] 107 mEq/L (07/15/17 7:11 AM) 110 mEq/L *HI* (07/15/17 12:06 AM) Chloride Lvl [95-109 mEq/L] 22 mEq/L *LOW* (07/15/17 7:11 AM) 24 mEq/L (07/15/17 12:06 AM) CO2 [24-32 mEq/L] 16.8 mEq/L (07/15/17 7:11 AM) 10.8 mEq/L (07/15/17 12:06 AM) AGAP [10.0-20.0 mEq/L] CHEM PANEL 1 2 3 Most recent to oldest [Reference Range]: 0.82 mg/dL (07/15/17 7:11 AM) 0.85 mg/dL (07/15/17 12:06 AM) Creatinine Lvl [0.50-1.40 mg/dL] 101 mL/min/1.73m2 1 *NA* (07/15/17 7:11 AM) 96 mL/min/1.73m2 2 *NA* (07/15/17 12:06 AM) eGFR 9 mg/dL (07/15/17 7:11 AM) 11 mg/dL (07/15/17 12:06 AM) BUN [7-22 mg/dL] 13 (07/15/17 12:06 AM) B/C Ratio [6-25] 99 mg/dL (07/15/17 7:11 AM) 85 mg/dL (07/15/17 12:06 AM) Glucose Lvl [70-99 mg/dL] 7.5 g/dL (07/15/17 7:11 AM) 7.7 g/dL (07/15/17 12:06 AM) Total Protein [6.4-8.4 g/dL] 3.6 g/dL (07/15/17 7:11 AM) 3.7 g/dL (07/15/17 12:06 AM) Albumin Lvl [3.5-5.0 g/dL] 3.9 g/dL (07/15/17 7:11 AM) 4.0 g/dL (07/15/17 12:06 AM) Globulin [2.7-4.2 g/dL] 0.9 (07/15/17 7:11 AM) 0.9 (07/15/17 12:06 AM) A/G Ratio [0.7-1.6] 8.1 mg/dL *LOW* (07/15/17 7:11 AM) 8.2 mg/dL *LOW* (07/15/17 12:06 AM) Calcium Lvl [8.5-10.5 mg/dL] 11 unit/L (07/15/17 7:11 AM) 11 unit/L (07/15/17 12:06 AM) ALT [0-65 unit/L] 11 unit/L (07/15/17 7:11 AM) 13 unit/L (07/15/17 12:06 AM) AST [0-37 unit/L] 46 unit/L (07/15/17 7:11 AM) 44 unit/L (07/15/17 12:06 AM) Alk Phos [39-136 unit/L] 1.0 mg/dL (07/15/17 7:11 AM) 0.6 mg/dL (07/15/17 12:06 AM) Bili Total [0.2-1.3 mg/dL] 0.2 mg/dL (07/15/17 7:11 AM) Bili Direct [0.0-0.3 mg/dL] 0.8 mg/dL (07/15/17 7:11 AM) Bili Indirect [0.0-1.0 mg/dL] 1Result Comment: The eGFR is calculated using [...] from the National Kidney Disease Education Program ( NKDEP) which additionally recommends that when the eGFR is used in patients with extremes of body mass index for purposes of drug dosing, the eGFR should be mul tiplied by the estimated BMI. 2Result Comment: The eGFR is calculated using the [...] from the National Kidney Disease Education Program ( NKDEP) which additionally recommends that when the eGFR is used in patients with extremes of body mass index for purposes of drug dosing, the eGFR should be mul tiplied by the estimated BMI. CARDIAC ENZYMES 1 2 3 Most recent to oldest [Reference Range]: 184 unit/L (07/15/17 11:13 AM) 196 unit/L *HI* (07/15/17 7:11 AM) 200 unit/L *HI* (07/15/17 4:11 AM) Total CK [12-191 unit/L] 1.0 ng/mL (07/15/17 11:13 AM) 2.0 ng/mL (07/15/17 7:11 AM) 1.4 ng/mL (07/15/17 4:11 AM) CK MB [0.5-3.6 ng/mL] 0.5 (07/15/17 11:13 AM) 1.0 (07/15/17 7:11 AM) 0.7 (07/15/17 4:11 AM) CK MB Index [0.0-2.5] 0.07 ng/mL (07/15/17 11:13 AM) 0.09 ng/mL (07/15/17 7:11 AM) 0.21 ng/mL (07/15/17 4:11 AM) Troponin-I [0.00-0.40 ng/mL] 139 pg/mL *HI* (07/15/17 12:06 AM) BNP [<=100 pg/mL] LIPIDS 1 2 3 Most recent to oldest [Reference Range]: 2.90 *LOW* (07/15/17 7:11 AM) CHD Risk [3.90-5.80] 174 mg/dL (07/15/17 7:11 AM) Chol [<=199 mg/dL] 105 mg/dL (07/15/17 7:11 AM) Trig [<=149 mg/dL] 60 mg/dL *LOW* (07/15/17 7:11 AM) HDL [>=61 mg/dL] 93 mg/dL (07/15/17 7:11 AM) LDL (Calculated) [<=99 mg/dL] 21 *NA* (07/15/17 7:11 AM) VLDL DRUG SCREEN 1 2 3 Most recent to oldest [Reference Range]: Negative *NA* (07/15/17 9:26 AM) U Amph Scr [Negative] Negative *NA* (07/15/17 9:26 AM) U Nayeli Scr [Negative] Negative *NA* (07/15/17 9:26 AM) U Benzodia Scr [Negative] Negative *NA* (07/15/17 9:26 AM) U Cocaine Scr [Negative] Negative *NA* (07/15/17 9:26 AM) U Opiate Scr [Negative] Negative *NA* (07/15/17 9:26 AM) U Phencyc Scr [Negative] Negative *NA* (07/15/17 9:26 AM) U Cannab Scr [Negative] See Note (07/15/17 9:26 AM) UDS Note ENDOCRINOLOGY 1 2 3 Most recent to oldest [Reference Range]: Negative *NA* (07/15/17 12:06 AM) S Preg [Negative] HEMATOLOGY 1 2 3 Most recent to oldest [Reference Range]: 5.4 K/CMM (07/15/17 7:11 AM) 8.0 K/CMM (07/15/17 12:06 AM) WBC [3.7-10.4 K/CMM] 3.92 M/CMM *LOW* (07/15/17 7:11 AM) 3.97 M/CMM *LOW* (07/15/17 12:06 AM) RBC [4.20-5.40 M/CMM] 11.6 g/dL *LOW* (07/15/17 7:11 AM) 11.5 g/dL *LOW* (07/15/17 12:06 AM) Hgb [12.0-16.0 g/dL] 34.1 % *LOW* (07/15/17 7:11 AM) 34.5 % *LOW* (07/15/17 12:06 AM) Hct [36.0-48.0 %] 87.1 fL (07/15/17 7:11 AM) 86.8 fL (07/15/17 12:06 AM) MCV [80.0-98.0 fL] 29.5 pg (07/15/17 7:11 AM) 29.0 pg (07/15/17 12:06 AM) MCH [27.0-31.0 pg] 33.9 g/dL (07/15/17 7:11 AM) 33.4 g/dL (07/15/17 12:06 AM) MCHC [32.0-36.0 g/dL] 14.1 % (07/15/17 7:11 AM) 13.9 % (07/15/17 12:06 AM) RDW [11.5-14.5 %] 10.0 fL (07/15/17:11 AM) 9.4 fL (07/15/17 12:06 AM) MPV [7.4-10.4 fL] 201 K/CMM (07/15/17 7:11 AM) 201 K/CMM (07/15/17 12:06 AM) Platelet [133-450 K/CMM] 49.0 % (07/15/17 7:11 AM) 50.7 % (07/15/17 12:06 AM) Segs [45.0-75.0 %] 36.8 % (07/15/17 7:11 AM) 38.1 % (07/15/17 12:06 AM) Lymphocytes [20.0-40.0 %] 9.4 % (07/15/17 7:11 AM) 7.8 % (07/15/17 12:06 AM) Monocytes [2.0-12.0 %] 4.0 % (07/15/17 7:11 AM) 2.5 % (07/15/17 12:06 AM) Eosinophils [0.0-4.0 %] 0.8 % (07/15/17 7:11 AM) 0.9 % (07/15/17 12:06 AM) Basophils [0.0-1.0 %] 2.6 K/CMM (07/15/17 7:11 AM) 4.1 K/CMM (07/15/17 12:06 AM) Segs-Bands # [1.5-8.1 K/CMM] 2.0 K/CMM (07/15/17 7:11 AM) 3.1 K/CMM (07/15/17 12:06 AM) Lymphocytes # [1.0-5.5 K/CMM] 0.5 K/CMM (07/15/17 7:11 AM) 0.6 K/CMM (07/15/17 12:06 AM) Monocytes # [0.0-0.8 K/CMM] 0.2 K/CMM (07/15/17 7:11 AM) 0.2 K/CMM (07/15/17 12:06 AM) Eosinophils # [0.0-0.5 K/CMM] 0.1 K/CMM (07/15/17 12:06 AM) Basophils # [0.0-0.2 K/CMM] 13.4 seconds (07/15/17 12:06 AM) PT [12.0-14.7 seconds] 1.02 (07/15/17 12:06 AM) INR [0.85-1.17] Immunizations No data available for this section Procedures No data available for this section Social History Social History Type Response Alcohol Past, Type Beer. Frequency: 1-2 times per week. Previous treatment: None. Alcohol use interferes with work or home: No. Smoking Status Never smoker; Exposure to Tobacco Smoke None; Cigarette Smoking Last 365 Days No; Reg Smoking Cessation Counseling No entered on: 09/25/17 Assessment and Plan Extracted from: Title: Discharge Summary * Author: Jeny Cowan MD Date: 07/16/17 Discharge Plan Discharge Summary Plan Discharge Status: stable. Discharge instructions given: to patient. Discharge disposition: discharge to home (into the care of family member, self care). Prescriptions: continue same medications, written and given to patient. Diagnosis Chest Pain . Course Improving. Education and Follow-up Counseled: patient. Extracted from: Title: Cardiology Progress Note Author: Gin Uribe MD Date: 07/16/17 Impression and Plan 1. Chest pain 2. Shortness of breath 3. Pulmonary hypertension suggested by non-invasive Doppler evaluation 4. Hypertension Plan: 1. Patient had cardiac catheterization in 2015 without obstructive disease in the coronary arteries. Serial cardiac biomarkers negative. No further ischemic evaluation is indicated at this time. 2. Estimated pulmonary pressure remain elevated. Patient will need follow-up with pulmonary hypertension clinic as an outpatient for further evaluation. 3. Increase diuretics. Strict I/O. Daily weights. She will need higher dose of diuretics upon discharge. 4. Continue current cardiac medications. Thank you for this consult. We will continue to follow. Extracted from: Title: Clinical Document Author: Gin Uribe MD Date: 07/15/17 Cardiology Consultation Reason for Consult: Chest pain History of Present Illness: 42 year-old woman hypertension and mild to moderate tricuspid regurgitation with elevated RVSP who presented with complaints of chest pain. She reports she began having chest pressure, 10/10 in severity, yesterday afternoon at 4PM. The pain radiated to her back, neck, and shoulder and was associated with shortness of breath. In addition, she notes her shortness of breath is worse when she lays down and she has noted increasing dyspnea with exertion at approximately 10 feet. She denies any edema. Review of Systems: Negative, except as per HPI. Past Medical History: 1. Hypertension 2. Mild to moderate TR 3. Elevated RVSP on echocardiogram Past Surgical History: None. Social History: No tobacco or illicit drugs. Occasional alcohol. Family History: Pertinent for heart failure in the mother. Allergies: See EMR. Medications: Please see medication reconciliation. Physical Exam: [id number] (07:39) Systolic Blood [id number] (07:39) Diastolic Blood [id number] (07:39) Pulse79 (07:39) SuO383 (07:39) Respiratory Rate25 (07:39) General: Well-developed, well-nourished woman. No acute distress. HEENT: Pupils equal, round and reactive to light. No scleral icterus or conjunctival pallor. No thyromegaly or cervical lymphadenopathy. No carotid bruits. CV: Normal rate. Regular rhythm. No murmur. Normal S1 and S2. Respiratory: Clear to auscultation bilaterally. No wheezes/crackles. Symmetric. Good air movement. ABD: Soft, non-tender, non-distended. Normoactive bowel sounds. Neuro: Cranial nerves II-XII grossly intact. No focal deficits. Strength 5/5. Appropriate mood and affect. Extremities: No edema. Skin: No rash appreciated. Labs: Reviewed. Troponin 0.09 BNP 139 EKG: Normal sinus rhythm with sinus arrhythmia, possible left atrial enlargement, left ventricular hypertrophy Impression: 1. Chest pain 2. Shortness of breath 3. Pulmonary hypertension suggested by non-invasive Doppler evaluation 4. Hypertension Plan: 1. Patient had cardiac catheterization in 2016 without obstructive disease in the coronary arteries. Serial cardiac biomarkers negative. No further ischemic evaluation is indicated at this time. 2. Repeat echocardiogram to re-evaluate pulmonary pressures. 3. Continue diuretics. Strict I/O. Daily weights. 4. Continue current cardiac medications. Thank you for this consult. We will continue to follow.
--- OUTSIDE RECORDS SUMMARY | 2018-08-06 10:04 | XMS REPORT | CCD ---
Author Author Auto Generated Organization [facility] Address Unknown Phone Unavailable Care Team Providers Care Choreography Director Name Role Phone Vivienne Rosas V CP [phone] Haydee Ventura CP Unavailable Dena Olson CP Bakari Mane CP Unavailable ChartServer, Login CP Unavailable NONE, None PP Unavailable HandRaissa robert CP Unavailable Tori Ventura CP [phone] Shaan Mitchell CP Rubio Wei CP [phone] Simón Peraza CP Allergies, Adverse Reactions, Alerts Substance Reaction Status NKDA ?? Active Medications Medication Instructions Start Date End Date Status aspirin 324 mg, Route: CHEW, Drug form: 01/30/2011 01/30/2011 Completed CHEWTAB, ONCE, Priority: STAT, Start date: 01/30/11 3:28:00, Stop date: 01/30/11 3:28:00 ibuprofen 800 mg 800 mg, PO, Q8H, PRN, 30 tab, Pain, 01/30/2011 02/09/2011 Ordered oral tablet Substitution Allowed, Take with food Take with food Vital Signs Most recent to oldest [Reference Range]: 1 2 3 Height 175.26 cm (01/29/2011 19:36:00) ? Temperature Oral [96.4-99.1 DegF] 99.6 DegF *HI* (01/29/2011 23:56:00) ?? 98.6 DegF (01/29/2011 19:36:00) ? Systolic Blood Pressure [90-140 mmHg] 122 mmHg (01/30/2011 04:07:00) ?? 138 mmHg (01/29/2011 23:56:00) ?? 129 mmHg (01/29/2011 19:36:00) ?? Diastolic Blood Pressure [60-90 mmHg] 66 mmHg (01/30/2011 04:07:00) ?? 84 mmHg (01/29/2011 23:56:00) ?? 86 mmHg (01/29/2011 19:36:00) ?? Respiratory Rate [14-20 BRMIN] 16 BRMIN (01/30/2011 04:07:00) ?? 18 BRMIN (01/29/2011 23:56:00) ?? 18 BRMIN (01/29/2011 19:36:00) ?? Peripheral Pulse Rate [60-100 bpm] 77 bpm (01/30/2011 04:07:00) ?? 67 bpm (01/29/2011 23:56:00) ?? 77 bpm (01/29/2011 19:36:00) ?? Weight 95.455 kg (01/29/2011 19:36:00) ?
--- OUTSIDE RECORDS SUMMARY | 2018-08-06 10:04 | XMS REPORT | Clinical Summary ---
Author Author [facility] Organization [facility] Address Unknown Phone Unavailable Care Team Providers Care Labor Union Business Representative Name Role Phone Raffy De La Garza [...] times Allergic conjunctivitis daily. and rhinitis, right 07/16/2017 Discontinued hydroCHLOROthiazide Take 1 90 capsule 3 (MICROZIDE) 12.5 mg capsule by 7 capsuleIndications: mouth every Essential hypertension morning. 07/25/2017 Discontinued metoprolol succinate Take 1 tablet 90 tablet 1 (TOPROL XL) 25 mg by mouth 7 extended release daily. tabletIndications: Essential hypertension, MVP (mitral valve prolapse) 02/02/2018 Discontinued ergocalciferol (VITAMIN Take 1 24 [...] Dx) 03/28/2018 Office Visit Family Practice Otoniel Obregon NP Acute otitis externa of right ear, unspecified [...] leg with pain, right 01/16/2018 Orders Only [facility] 09/25/2017 Emergency Emergency Medicine Cadence Cunha, Physician Essential hypertension; MVP (mitral valve prolapse) 07/25/2017 Refill Family Practice Cadence Cunha, Physician Essential hypertension 07/16/2017 Refill Family Practice after 06/01/2017 Immunizations Name Dates Previously Given Next Due [...] Taken Vital Sign Reading 05/18/2018 9:53 AM CDL BULK DRIVER Blood Pressure 132/87 05/18/2018 9:53 AM CDL BULK DRIVER Pulse 62 05/18/2018 9:53 AM CDL BULK DRIVER Temperature 36.8 C (98.3 F) 05/18/2018 9:53 AM CDL BULK DRIVER Respiratory Rate 18 03/28/2018 9:00 AM CDL BULK DRIVER Oxygen Saturation 100% - Inhaled Oxygen - Concentration 05/18/2018 9:53 AM CDL BULK DRIVER Weight 103 kg (227 lb) 05/18/2018 9:53 AM CDL BULK DRIVER Height 172.7 cm (5' 8") 05/18/2018 9:53 AM CDL BULK DRIVER Body Mass Index 34.52 Plan of Treatment Care Team Description Date Type Specialty [place] [address] [phone] 06/10/2018 Office Visit Family Practice 09/29/2018 Appointment Cardiology Health Maintenance Due Date Last Done Comments Breast Cancer Scrn 10/20/2015 10/19/2014, 10/29/2012 (Yearly) Cervical Cancer Scrn (3 10/23/2015 10/22/2012 (Previously completed - Yrs) External), 10/16/2012 Procedures Comments Procedure Name Priority Date/Time Associated Diagnosis XRAY CHEST 2 VIEWS Routine 05/18/2018 History of pneumonia 11:15 AM CDL BULK DRIVER XRAY CHEST 2 VIEWS Routine 01/16/2018 History [...] Mitral valve prolapse 1:15 PM CDT after 06/01/2017 Results * XRAY CHEST 2 VIEWS (05/18/2018 11:15 AM CDL BULK DRIVER) Only the most recent of 2 results within the time period is included. Impressions Performed At IMPRESSION: SMS Stable cardiomegaly. Dictated By: Nathanael Abbott MD, [...] Interface, Rad/Mammog In - 05/18/2018 2:53 PM CDL BULK DRIVER EXAMINATION: XRAY CHEST 2 VIEWS INDICATION: history [...] MD, 05/18/2018 2:48 PM Performing Organization Address City/State/Zipcode Phone Number SMS * HIV-1/HIV-2 ROUTINE SCREENING (01/16/2018 1:16 PM CDT) HIV-1/HIV-2 Negative NEG BT MAIN-STATION 3 Performing Organization Address [facility] Phone Number MISYS BT MAIN-STATION 3 * HEMOGLOBIN A1C (01/16/2018 1:16 PM CDT) Hemoglobin A1c 5.5 4.3 - 6.1 % BT DIAGNOSTIC IMMUNOLOGY Est Average 111.2 mg/dL BT DIAGNOSTIC Gluc IMMUNOLOGY Specimen Blood Performing Organization Address [facility] Phone Number MISYS BT DIAGNOSTIC IMMUNOLOGY * [...] MAIN-STATION 1 Specimen Blood Performing Organization Address [facility] Phone Number MISYS BT MAIN-STATION 1 * TSH (01/16/2018 1:16 PM CDT) TSH 2.34 0.57 - 3.74 uIU/mL BT MAIN-STATION 1 Specimen Blood Performing Organization Address [facility] Phone Number MISYS BT MAIN-STATION 1 * SYPHILIS MONITOR FOR TREATMENT (01/16/2018 1:16 PM CDT) RPR Nonreactive NR Titer BT DIAGNOSTIC IMMUNOLOGY Specimen Blood Performing Organization Address [facility] Phone Number [facility] * LIPID PROFILE (01/16/2018 1:16 PM CDT) Cholesterol 183 mg/dL BT MAIN-STATION Comment: 1 REFERENCE RANGE: Desirable: <200 mg/dL Borderline: 200-240 mg/dL High Risk: >240 mg/dL Triglyceride 102 <150 mg/dL BT MAIN-STATION Comment: 1 REFERENCE RANGE: Normal: <150 mg/dL Borderline High: 150-199 mg/dL High: 200-499 mg/dL Very High: >vf=350 mg/dL HDL 67 mg/dL BT MAIN-STATION Comment: 1 Increased CHD risk: <40 mg/dL Decreased CHD risk: >60 mg/dL LDL 96 mg/dL BT MAIN-STATION Comment: 1 REFERENCE RANGE: Optimal: <100 mg/dL Near Optimal: 100-129 mg/dL Borderline High: 130-159 mg/dL High: 160-189 mg/dL Very High: >io=540 mg/dL Specimen Blood Performing Organization Address [facility] Phone Number ERENDIRA MAIN-STATION 1 * HEPATITIS PANEL (01/16/2018 1:16 PM CDT) HCV IgG Negative NEG BT MAIN-STATION 3 HBsAg Negative NEG BT MAIN-STATION 3 HAV, IgM Negative NEG BT MAIN-STATION 3 HBcAb, IgM Negative NEG BT MAIN-STATION 3 Specimen Blood Performing Organization Address [facility] Phone Number ERENDIRA MAIN-STATION 3 * CBC/DIFF (01/16/2018 1:16 PM [...] Phone Number MISYS BT MAIN-STATION 1 after 06/01/2017 Insurance Type Payer Benefit Subscriber ID Effective Phone Address Plan / Dates Group [place] MEDICA[place] [id number] xxxxxxxxx 2017-P [phone] [id number] [place] [id number] HCHD PLAN HCHD PLAN xxxxxx 2017- [phone] [id number] [place] [address]
--- OUTSIDE RECORDS SUMMARY | 2018-08-06 10:04 | XMS REPORT | CCD ---
Author Author Auto Generated Organization [facility] Address Unknown Phone Unavailable Care Team Providers Care Coagulant Dipper Name Role Phone NONE, None PP Unavailable Good HopeRadha delgadilloleann CP Allergies, Adverse Reactions, Alerts Substance Reaction Status NKDA Active Problem List Condition Effective Dates Status HTN - Hypertension Resolved Mitral valve prolapse Resolved Medications Medication Instructions Start Date End Date Status Cipro 500 mg oral 500 mg, 1 tab, PO, Q12H, 28 tab, 11/06/2012 11/20/2012 Ordered tablet Substitution Allowed, TAB Flomax 0.4 mg oral 0.4 mg, 1 cap, PO, Daily, 30 cap, 11/06/2012 Ordered capsule Substitution Allowed, CAP [place] 5/325 oral 1-2 tab, PO, Q4-6H, PRN, 15 tab, 11/06/2012 11/11/2012 Ordered tablet Pain, Substitution Allowed, Maintenance ondansetron 4 mg, Route: IVP, Drug form: INJ, 11/06/2012 11/06/2012 Completed ONCE, Dosing Weight 104.545, kg, Priority: STAT, Start date: 11/06/12 0:31:00, Stop date: 11/06/12 0:31:00 morphine Sulfate 4 mg, Route: IVP, Drug form: INJ, 11/06/2012 11/06/2012 Completed ONCE, Dosing Weight 104.545, kg, Priority: STAT, Start date: 11/06/12 0:31:00, Stop date: 11/06/12 0:31:00 Vital Signs Most recent to oldest [Reference Range]: 1 Height 167.64 cm (11/05/2012 21:39:00) Weight 104.545 kg (11/05/2012 21:39:00) Results URINALYSIS Most recent to oldest [Reference Range]: 1 UA Turbidity [Clear] Clear (11/05/2012 21:50:00) UA Color [Yellow] Yellow *NA* (11/05/2012 21:50:00) UA pH [5.0-8.0] 6.0 (11/05/2012 21:50:00) UA Spec Grav [<=1.030] 1.023 (11/05/2012 21:50:00) UA Glucose [Negative mg/dL] Negative mg/dL *NA* (11/05/2012 21:50:00) UA Blood [Negative] Negative (11/05/2012 21:50:00) UA Ketones [Negative mg/dL] Negative mg/dL *NA* (11/05/2012 21:50:00) UA Protein [Negative mg/dL] Negative mg/dL (11/05/2012 21:50:00) UA Urobilinogen [0.1-1.0 mg/dL] <=1.0 mg/dL *NA* (11/05/2012 21:50:00) UA Bili [Negative] Negative *NA* (11/05/2012 21:50:00) UA Leuk Est [Negative] Trace *ABN* (11/05/2012 21:50:00) UA Nitrite [Negative] Negative (11/05/2012 21:50:00) UA WBC [0-5 /HPF] 1 /HPF (11/05/2012 21:50:00) UA RBC [0-2 /HPF] 2 /HPF (11/05/2012 21:50:00) UA Sq Epi [Few /LPF] Occasional /LPF *NA* (11/05/2012 21:50:00) CHEMISTRY Most recent to oldest [Reference Range]: 1 Sodium Lvl [135-145 mEq/L] 140 mEq/L (11/06/2012 00:49:00) Potassium Lvl [3.5-5.1 mEq/L] 3.9 mEq/L (11/06/2012 00:49:00) Chloride Lvl [95-109 mEq/L] 109 mEq/L (11/06/2012 00:49:00) CO2 [24-32 mEq/L] 24 mEq/L (11/06/2012 00:49:00) AGAP [10.0-20.0 mEq/L] 10.9 mEq/L (11/06/2012 00:49:00) Creatinine Lvl [0.5-1.4 mg/dL] 0.9 mg/dL (11/06/2012 00:49:00) eGFR 81 mL/min/1.73m2 1 *NA* (11/06/2012 00:49:00) BUN [7-22 mg/dL] 9 mg/dL (11/06/2012 00:49:00) B/C Ratio [6-25] 10 (11/06/2012 00:49:00) Glucose Lvl [70-99 mg/dL] 93 mg/dL 2 (11/06/2012 00:49:00) Total Protein [6.4-8.4 g/dL] 7.6 g/dL (11/06/2012 00:49:00) Albumin Lvl [3.5-5.0 g/dL] 3.7 g/dL (11/06/2012 00:49:00) Globulin [2.0-4.0 g/dL] 3.9 g/dL (11/06/2012 00:49:00) A/G Ratio [0.7-1.6] 0.9 (11/06/2012 00:49:00) Calcium Lvl [8.5-10.5 mg/dL] 8.3 mg/dL *LOW* (11/06/2012 00:49:00) ALT [0-65 unit/L] 16 unit/L (11/06/2012 00:49:00) AST [0-37 unit/L] 12 unit/L (11/06/2012 00:49:00) Alk Phos [39-136 unit/L] 55 unit/L (11/06/2012 00:49:00) Bili Total [0.2-1.3 mg/dL] 0.4 mg/dL (11/06/2012 00:49:00) Bili Direct [0.0-0.3 mg/dL] <0.1 mg/dL (11/06/2012 00:49:00) U Preg [Negative] Negative (11/05/2012 21:50:00) 1Result Comment: The eGFR is calculated using [...] be mul tiplied by the estimated BMI. 2Interpretive Data: Adult reference range values reflect the clinical guidelines of the [place] [employer]. HEMATOLOGY Most recent to oldest [Reference Range]: 1 WBC [3.7-10.4 K/CMM] 5.9 K/CMM (11/06/2012 00:49:00) RBC [4.20-5.40 M/CMM] 3.94 M/CMM *LOW* (11/06/2012 00:49:00) Hgb [12.0-16.0 g/dL] 11.3 g/dL *LOW* (11/06/2012 00:49:00) Hct [36.0-48.0 %] 34.8 % *LOW* (11/06/2012 00:49:00) MCV [81.0-99.0 fL] 88.4 fL (11/06/2012 00:49:00) MCH [27.0-31.0 pg] 28.8 pg (11/06/2012 00:49:00) MCHC [32.0-36.0 g/dL] 32.5 g/dL (11/06/2012 00:49:00) RDW [11.5-14.5 %] 13.9 % (11/06/2012 00:49:00) Platelet [133-450 K/CMM] 183 K/CMM (11/06/2012 00:49:00) MPV [7.4-10.4 fL] 9.6 fL (11/06/2012 00:49:00) Segs [45.0-75.0 %] 40.4 % *LOW* (11/06/2012 00:49:00) Lymphocytes [20.0-40.0 %] 45.7 % *HI* (11/06/2012 00:49:00) Monocytes [2.0-12.0 %] 8.0 % (11/06/2012 00:49:00) Eosinophils [0.0-4.0 %] 5.3 % *HI* (11/06/2012 00:49:00) Basophils [0.0-1.0 %] 0.6 % (11/06/2012 00:49:00) Segs-Bands # [1.5-8.1 K/CMM] 2.4 K/CMM (11/06/2012 00:49:00) Lymphocytes # [1.0-5.5 K/CMM] 2.7 K/CMM (11/06/2012 00:49:00) Monocytes # [0.0-0.8 K/CMM] 0.5 K/CMM (11/06/2012 00:49:00) Eosinophils # [0.0-0.5 K/CMM] 0.3 K/CMM (11/06/2012 00:49:00) Basophils # [0.0-0.2 K/CMM] 0.0 K/CMM (11/06/2012 00:49:00) PT [12.0-14.7 seconds] 15.3 seconds *HI* (11/06/2012 00:49:00) INR [0.85-1.17] 1.19 3 *HI* (11/06/2012 00:49:00) PTT [22.9-35.8 seconds] 35.0 seconds 4 (11/06/2012 00:49:00) 3Interpretive Data: RECOMMENDED RANGES FOR PROTIME INR: 2.0-3.0 for most medical and surgical thromboembolic states. 2.5-3.5 for artificial heart valves and recurrent embolism. INR SHOULD BE USED ONLY FOR PATIENTS ON STABLE ANTICOAGULANT THERAPY. 4Interpretive Data: Heparin Therapeutic Range: 57 - 92 Seconds
--- OUTSIDE RECORDS SUMMARY | 2018-08-06 10:04 | XMS REPORT | CCD ---
Author Author Auto Generated Organization [facility] Address Unknown Phone Unavailable Care Team Providers Care Concrete Foreman Name Role Phone NONE, None PP Unavailable Jaden Kruger CP Allergies, Adverse Reactions, Alerts Substance Reaction Status NKDA Active Problem List Condition Effective Dates Status HTN - Hypertension Resolved Mitral valve prolapse Resolved Medications Medication Instructions Start Date End Date Status ibuprofen 600 mg 600 mg, PO, Q6H, PRN, Take with 02/05/2013 02/13/2013 Ordered oral tablet food, 30 tab, Pain, Substitution Allowed Take with food [place] 5/325 oral 1-2 tab, PO, Q4-6H, PRN, 30 tab, 02/05/2013 02/10/2013 Ordered tablet Pain, Substitution Allowed, Maintenance [place] 5/325 oral 1 tab, Route: PO, Drug Form: TAB, 02/05/2013 02/05/2013 Completed tablet Dosing Weight 104.545, kg, ONCE, Start date: 02/05/13 9:18:00, Stop date: 02/05/13 9:18:00 Vital Signs Most recent to oldest [Reference Range]: 1 2 Height 167.64 cm (02/05/2013 06:12:00) Temperature Oral [96.4-99.1 DegF] 97.9 DegF (02/05/2013 10:35:00) 98.8 DegF (02/05/2013 06:12:00) Systolic Blood Pressure [90-140 mmHg] 139 mmHg (02/05/2013 10:35:00) 153 mmHg *HI* (02/05/2013 06:12:00) Diastolic Blood Pressure [60-90 mmHg] 96 mmHg *HI* (02/05/2013 10:35:00) 92 mmHg *HI* (02/05/2013 06:12:00) Respiratory Rate [14-20 BRMIN] 18 BRMIN (02/05/2013 10:35:00) 18 BRMIN (02/05/2013 06:12:00) Peripheral Pulse Rate [60-100 bpm] 67 bpm (02/05/2013 10:35:00) 63 bpm (02/05/2013 06:12:00) Weight 104.545 kg (02/05/2013 06:12:00)
--- OUTSIDE RECORDS SUMMARY | 2018-08-06 10:04 | XMS REPORT | CCD ---
Author Author Auto Generated Organization [facility] Address Unknown Phone Unavailable Care Team Providers Care Ceramic Designer Name Role Phone NONE, None PP Unavailable Raj Huber CP Allergies, Adverse Reactions, Alerts Substance Reaction Status NKDA Active Problem List Condition Effective Dates Status HTN - Hypertension Resolved Mitral valve prolapse Resolved Medications Medication Instructions Start Date End Date Status Ultram 50 mg oral 100 mg, Route: PO, Drug form: TAB, 04/21/2013 04/21/2013 Completed tablet ONCE, Dosing Weight 104.545, kg, Priority: STAT, Start date: 04/21/13 19:55:00, Stop date: 04/21/13 19:55:00 Flexeril 10 mg, Route: PO, ONCE, Dosing 04/21/2013 04/21/2013 Completed Weight 104.545, kg, Priority: STAT, Start date: 04/21/13 19:55:00, Stop date: 04/21/13 19:55:00 Flexeril 10 mg oral 10 mg, PO, TID, Muscle Spasm, # 30 04/21/2013 05/01/2013 Ordered tablet tab, 0 Refill(s) Ultram 50 mg oral 1 - 2 tabs, PO, Q6H, as needed for 04/21/2013 Ordered tablet pain, # 30 tab, 0 Refill(s) Vital Signs Most recent to oldest [Reference Range]: 1 2 Height 167.64 cm (04/21/2013 15:27:00) Temperature Oral [96.4-99.1 DegF] 97.9 DegF (04/21/2013 21:14:00) 98.5 DegF (04/21/2013 15:27:00) Systolic Blood Pressure [90-140 mmHg] 128 mmHg (04/21/2013 21:14:00) 131 mmHg (04/21/2013 15:27:00) Diastolic Blood Pressure [60-90 mmHg] 89 mmHg (04/21/2013 21:14:00) 79 mmHg (04/21/2013 15:27:00) Respiratory Rate [14-20 BRMIN] 18 BRMIN (04/21/2013 21:14:00) 18 BRMIN (04/21/2013 15:27:00) Peripheral Pulse Rate [60-100 bpm] 77 bpm (04/21/2013 21:14:00) 96 bpm (04/21/2013 15:27:00) Weight 104.545 kg (04/21/2013 15:27:00)
--- OUTSIDE RECORDS SUMMARY | 2018-08-06 10:04 | XMS REPORT | Summary of Care ---
Author Author [facility] Organization [facility] Address Unknown Phone Unavailable Encounter FLORIAN Storey(CHERIE) [id number] Date(s): 04/28/17 - 04/28/17 [facility] [address] [place] [address]- [phone] Discharge Diagnosis: Acute head injury Discharge Diagnosis: Acute headache Discharge Disposition: Home or Self Care Attending Physician: Wilfrido Grant MD Vital Signs Most recent to 1 2 oldest [Reference Range]: Temperature Oral 98.3 DegF 99.5 DegF [96.4-99.1 DegF] (04/28/17 6:50 PM) *HI* (04/28/17 3:44 PM) Blood Pressure 126/84 mmHg 136/88 mmHg [90-140/60-90 mmHg] (04/28/17 6:50 PM) (04/28/17 3:44 PM) Respiratory Rate 20 BRMIN 18 BRMIN [14-20 BRMIN] (04/28/17 6:50 PM) (04/28/17 3:44 PM) Peripheral Pulse 69 bpm 78 bpm Rate [60-100 bpm] (04/28/17 6:50 PM) (04/28/17 3:44 PM) Problem List Condition Effective Dates Status Health Status Informant HTN - Resolved Hypertension(Confirm ed) Mitral valve Resolved prolapse(Confirmed) Allergies, Adverse Reactions, Alerts Substance Reaction Severity Status NKDA Active Medications Benadryl 12.5 mg, 0.25 mL, Route: IVP, Drug form: INJ, ONCE, Dosing Weight 100, kg, Prior ity: STAT, Start date: 04/28/17 17:51:00 MANAGER GRAPHIC, Stop date: 04/28/17 17:51:00 MANAGER GRAPHIC Notes: (Same as: Benadryl) Start Date: 04/28/17 Stop Date: 04/28/17 Status: Completed Diflucan 150 mg, 3 tab, Route: PO, Drug form: TAB, ONCE, Dosing Weight 100, kg, Start aron e: 04/28/17 18:05:00 MANAGER GRAPHIC, Stop date: 04/28/17 18:05:00 MANAGER GRAPHIC Notes: (Same as: Diflucan) Start Date: 04/28/17 Stop Date: 04/28/17 Status: Completed Esgic 325 mg-50 mg-40 mg oral tablet 1 tab, PO, Q4H, PRN Pain, Not to exceed more than 6 tablets in 24 hours, X 2 day , # 12 tab, 0 Refill(s) Start Date: 04/28/17 Stop Date: 04/30/17 Status: Completed ketOROLAC 30 mg/mL injectable solution 30 mg, 1 mL, Route: IV, Drug form: INJ, ONCE, Dosing Weight 100, kg, Start date: 04/28/17 17:51:00 MANAGER GRAPHIC, Stop date: 04/28/17 17:51:00 MANAGER GRAPHIC Notes: (Same as:Toradol) IV bolus must be given >15 seconds. Give IM administration slowly and deeply into the muscle.Not for use > 4 days MEDICATION WASTE Product Size: 30 mgProduct Wasted: ___ mg Start Date: 04/28/17 Stop Date: 04/28/17 Status: Completed NS (Bolus) IV 1,000 mL, 1,000 ml/hr, Infuse Over: 1 hr, Route: IV, 1,000, Drug form: INJ, ONCE , Priority: STAT, Dosing Weight 100 kg, Start date: 04/28/17 17:51:00 MANAGER GRAPHIC, Stop date: 04/28/17 17:51:00 MANAGER GRAPHIC Start Date: 04/28/17 Stop Date: 04/28/17 Status: Completed Reglan 10 mg, 2 mL, Route: IVP, Drug form: SOLN, ONCE, Dosing Weight 100, kg, Priority: STAT, Start date: 04/28/17 17:51:00 MANAGER GRAPHIC, Stop date: 04/28/17 17:51:00 MANAGER GRAPHIC Notes: (Same as: Reglan) Start Date: 04/28/17 Stop Date: 04/28/17 Status: Completed Results No data available for this section Immunizations No data available for this section Procedures No data available for this section Social History Social History Type Response Alcohol Past, Type Beer. Frequency: 1-2 times per week. Previous treatment: None. Alcohol use interferes with work or home: No. Smoking Status Never smoker; Exposure to Tobacco Smoke None; Cigarette Smoking Last 365 Days No; Reg Smoking Cessation Counseling No Assessment and Plan No data available for this section
--- OUTSIDE RECORDS SUMMARY | 2018-08-06 10:04 | XMS REPORT | Clinical Summary ---
Author Author [facility] Organization [facility] Address Unknown Phone Unavailable Care Team Providers Care Live In Housekeeper Name Role Phone Raffy De La Garza [...] leg with pain, right 01/16/2018 Orders Only [facility] Practice 09/25/2017 Emergency Emergency Medicine Cadence Cunha, Physician Essential hypertension; MVP (mitral valve prolapse) 07/25/2017 Refill Family Practice Cadence Cunha, Physician Essential hypertension 07/16/2017 Refill Family Practice after 06/21/2017 Immunizations Name Dates Previously Given Next Due [...] Taken Vital Sign Reading 05/18/2018 9:53 AM BONE CHAR OPERATOR Blood Pressure 132/87 05/18/2018 9:53 AM BONE CHAR OPERATOR Pulse 62 05/18/2018 9:53 AM BONE CHAR OPERATOR Temperature 36.8 C (98.3 F) 05/18/2018 9:53 AM BONE CHAR OPERATOR Respiratory Rate 18 03/28/2018 9:00 AM BONE CHAR OPERATOR Oxygen Saturation 100% - Inhaled Oxygen - Concentration 05/18/2018 9:53 AM BONE CHAR OPERATOR Weight 103 kg (227 lb) 05/18/2018 9:53 AM BONE CHAR OPERATOR Height 172.7 cm (5' 8") 05/18/2018 9:53 AM BONE CHAR OPERATOR Body Mass Index 34.52 Plan of Treatment Care Team Description Date Type Specialty Raffy De La Garza MD [place], [place] [id number] Headaches//OFFERED SDC 06/26/2018 Office Visit Family Practice 09/29/2018 Appointment Cardiology Health Maintenance Due Date Last Done Comments Breast Cancer Scrn 10/20/2015 10/19/2014, 10/29/2012 (Yearly) Cervical Cancer Scrn (3 10/23/2015 10/22/2012 (Previously completed - Yrs) External), 10/16/2012 Procedures Comments Procedure Name Priority Date/Time Associated Diagnosis XRAY CHEST 2 VIEWS Routine 05/18/2018 History of pneumonia 11:15 AM BONE CHAR OPERATOR XRAY CHEST 2 VIEWS Routine 01/16/2018 History [...] Mitral valve prolapse 1:15 PM CDT after 06/21/2017 Results * XRAY CHEST 2 VIEWS (05/18/2018 11:15 AM BONE CHAR OPERATOR) Only the most recent of 2 results [...] Interface, Rad/Mammog In - 05/18/2018 2:53 PM BONE CHAR OPERATOR EXAMINATION: XRAY CHEST 2 VIEWS INDICATION: history [...] NEG BT MAIN-STATION 3 Performing Organization Address [facility] Phone Number MISYS BT MAIN-STATION 3 * HEMOGLOBIN A1C (01/16/2018 1:16 PM CDT) Hemoglobin A1c 5.5 4.3 - 6.1 % BT DIAGNOSTIC IMMUNOLOGY Est Average 111.2 mg/dL BT DIAGNOSTIC Gluc IMMUNOLOGY Specimen Blood Performing Organization Address [facility] Phone Number MISYS BT DIAGNOSTIC IMMUNOLOGY * [...] MAIN-STATION 1 Specimen Blood Performing Organization Address [facility] Phone Number MISYS BT MAIN-STATION 1 * TSH (01/16/2018 1:16 PM CDT) TSH 2.34 0.57 - 3.74 uIU/mL BT MAIN-STATION 1 Specimen Blood Performing Organization Address [facility] Phone Number MISYS BT MAIN-STATION 1 * SYPHILIS MONITOR FOR TREATMENT (01/16/2018 1:16 PM CDT) RPR Nonreactive NR Titer BT DIAGNOSTIC IMMUNOLOGY Specimen Blood Performing Organization Address [facility] Phone Number [facility] DIAGNOSTIC IMMUNOLOGY * LIPID PROFILE (01/16/2018 1:16 PM CDT) Cholesterol 183 mg/dL BT MAIN-STATION Comment: 1 REFERENCE RANGE: Desirable: <200 mg/dL Borderline: 200-240 mg/dL High Risk: >240 mg/dL Triglyceride 102 <150 mg/dL BT MAIN-STATION Comment: 1 REFERENCE RANGE: Normal: <150 mg/dL Borderline High: 150-199 mg/dL High: 200-499 mg/dL Very High: >ue=544 mg/dL HDL 67 mg/dL BT MAIN-STATION Comment: 1 Increased CHD risk: <40 mg/dL Decreased CHD risk: >60 mg/dL LDL 96 mg/dL BT MAIN-STATION Comment: 1 REFERENCE RANGE: Optimal: <100 mg/dL Near Optimal: 100-129 mg/dL Borderline High: 130-159 mg/dL High: 160-189 mg/dL Very High: >sc=388 mg/dL Specimen Blood Performing Organization Address [facility] Phone Number [facility] MAIN-STATION 1 * HEPATITIS PANEL (01/16/2018 1:16 PM CDT) HCV IgG Negative NEG BT MAIN-STATION 3 HBsAg Negative NEG BT MAIN-STATION 3 HAV, IgM Negative NEG BT MAIN-STATION 3 HBcAb, IgM Negative NEG BT MAIN-STATION 3 Specimen Blood Performing Organization Address [facility] Phone Number [facility] MAIN-STATION 3 * CBC/DIFF (01/16/2018 1:16 PM [...] Phone Number MISYS BT MAIN-STATION 1 after 06/21/2017 Insurance Type Payer Benefit Subscriber ID Effective Phone Address Plan / Dates Group [employer] PLAN [employer] PLAN xxxxxx 2017- [phone] [id number] [place] [address]
--- OUTSIDE RECORDS SUMMARY | 2018-08-06 10:04 | XMS REPORT | Summary of Care ---
Author Author [facility] Organization [facility] Address Unknown Phone Unavailable Encounter FLORIAN Storey(CHERIE) [id number] Date(s): 09/25/17 - 09/25/17 [facility] [address] [place] [address]- Encounter Diagnosis Acute lumbar radiculopathy (Discharge Diagnosis) - 09/25/17 Discharge Disposition: Home or Self Care Attending Physician: Martha Reed DO Vital Signs Most recent to 1 2 oldest [Reference Range]: Temperature Oral 98.8 DegF 98.7 DegF [96.4-99.1 DegF] (09/25/17 7:45 AM) (09/25/17 3:34 AM) Blood Pressure 118/68 mmHg 130/74 mmHg [90-140/60-90 mmHg] (09/25/17 7:45 AM) (09/25/17 3:34 AM) Respiratory Rate 19 BRMIN 18 BRMIN [14-20 BRMIN] (09/25/17 7:45 AM) (09/25/17 3:34 AM) Peripheral Pulse 74 bpm 69 bpm Rate [60-100 bpm] (09/25/17 7:45 AM) (09/25/17 3:34 AM) Weight 95.455 kg (09/25/17 3:34 AM) Problem List Condition Effective Dates Status Health Status Informant HTN - Resolved Hypertension(Confirm ed) Mitral valve Resolved prolapse(Confirmed) Allergies, Adverse Reactions, Alerts Substance Reaction Severity Status NKDA Active Medications dexamethasone 10 mg, Route: IM, ONCE, Dosing Weight 95.455, kg, Priority: STAT, Start date: 6:16:00 CDT, Stop date: 09/25/17 6:16:00 CDT Start Date: 09/25/17 Stop Date: 09/25/17 Status: Completed ketOROLAC 30 mg, Route: IVP, Drug form: INJ, ONCE, Dosing Weight 95.455, kg, Priority: STA T, Start date: 09/25/17 6:16:00 CDT, Stop date: 09/25/17 6:16:00 CDT Start Date: 09/25/17 Stop Date: 09/25/17 Status: Discontinued ketOROLAC 30 mg/mL injectable solution 60 mg, Route: IM, ONCE, Dosing Weight 95.455, kg, Start date: 09/25/17 6:34:00 C DT, Stop date: 09/25/17 6:34:00 CDT Start Date: 09/25/17 Stop Date: 09/25/17 Status: Completed Motrin 800 mg oral tablet 800 mg=1 tab, PO, Q8H, PRN Pain, Take with food, X 10 day, # 30 tab, 0 Refill(s) Start Date: 09/25/17 Stop Date: 10/05/17 Status: Ordered Tylenol with Codeine #3 oral tablet 1 tab, PO, Q6H, PRN Pain Score 4-6, X 5 day, # 30 tab, 0 Refill(s) Start Date: 09/25/17 Stop Date: 09/30/17 Status: Ordered Valium 5 mg oral tablet 5 mg=1 tab, PO, BID, PRN msk spasm, X 5 day, # 10 tab, 0 Refill(s) Start Date: 09/25/17 Stop Date: 09/30/17 Status: Ordered Results URINE CHEM Most recent to 1 oldest [Reference Range]: U Preg [Negative] Negative (09/25/17 6:22 AM) Immunizations No data available for this section [...] No entered on: 09/25/17 Assessment and Plan No data available for this section
--- OUTSIDE RECORDS SUMMARY | 2018-08-06 10:04 | XMS REPORT | CCD ---
Author Author Auto Generated Organization [facility] Address Unknown Phone Unavailable Care Team Providers Care General Hardware Salesperson Name Role Phone NONE, None PP Unavailable Khoa Man RP John Carranza CP Allergies, Adverse Reactions, Alerts Substance Reaction Status NKDA Active Medications Medication Instructions Start Date End Date Status Garner 5/325 oral 1-2 tab, PO, Q4-6H, PRN, 15 tab, 02/11/2012 02/16/2012 Ordered tablet Pain, Substitution Allowed, Maintenance Flexeril 10 mg oral 10 mg, PO, TID, PRN, 30 tab, Muscle 02/11/2012 02/18/2012 Ordered tablet Spasm, Substitution Allowed diclofenac topical 1 appl, TOP, QID, PRN, 100 gm, for 02/11/2012 Ordered 1% gel pain, Substitution Allowed, GEL ketorolac 60 mg, Route: IM, ONCE, Dosing 02/11/2012 02/11/2012 Completed Weight 90.909, kg, Priority: STAT, Start date: 02/11/12 18:19:00, Stop date: 02/11/12 18:19:00 Vital Signs Most recent to oldest [Reference Range]: 1 Height 167.64 cm (02/11/2012 16:15:00) Weight 90.909 kg (02/11/2012 16:15:00)
--- OUTSIDE RECORDS SUMMARY | 2018-08-06 10:04 | XMS REPORT | Summary of Care ---
Author Author [facility] Organization [facility] Address Unknown Phone Unavailable Encounter FLORIAN Storey(CHERIE) [id number] Date(s): 09/25/17 - 09/25/[address] [facility] [address] [place] [address]- [phone] Encounter Diagnosis Acute lumbar radiculopathy (Discharge Diagnosis) [...]
--- OUTSIDE RECORDS SUMMARY | 2018-08-06 10:05 | XMS REPORT ---
Author [facility] Address Unknown Phone Unavailable Care Team Providers Care Biological Scientist Name Role Phone Unavailable Unavailable Payers Payer Name Policy Type Policy Number Effective Date Expiration Date Problems This patient has no known problems. Allergies, Adverse Reactions, Alerts Allergy Name Allergy Type Status Severity Reaction(s) Onset Date Inactive Date Treating Clinician Comments No Known Allergies DA Active U 2018-05-11 00:00:00 Medications This patient has no known medications. Encounters Start Date/Time End Date/Time Encounter Type Admission Type Attending [facility] Facility Care Department Encounter ID 2018-09-29 00:00:00 2018-09-29 00:00:00 Outpatient [facility] [id number] 2018-08-10 00:00:00 2018-08-10 00:00:00 Outpatient [facility] [id number] 2018-06-26 00:00:00 2018-06-26 00:00:00 Outpatient [facility] [id number] 2018-06-10 00:00:00 2018-06-10 00:00:00 Outpatient [facility] [id number] 2018-05-18 11:08:58 2018-05-18 11:08:58 Outpatient [facility] [id number] 2018-05-18 09:53:16 2018-05-18 09:53:16 Outpatient [facility] [id number] 2018-03-28 08:58:54 2018-03-28 08:58:54 Outpatient [facility] [id number] 2018-02-02 09:14:43 2018-02-02 09:14:43 Outpatient [facility] [id number] 2018-01-30 15:28:55 2018-01-30 15:28:55 Outpatient [facility] [id number] 2018-01-16 13:12:44 2018-01-16 13:12:44 Outpatient [facility] [id number] 2018-01-16 12:05:39 2018-01-16 12:05:39 Outpatient [facility] [id number] 2017-09-25 02:32:00 2017-09-25 02:32:00 Emergency [facility] [id number]
--- OUTSIDE RECORDS SUMMARY | 2018-08-06 10:05 | XMS REPORT | Summary of Care ---
Author Author [facility] Organization [facility] Address Unknown Phone Unavailable Care Team Providers Care Retirement Officer Name Role Phone NONE, None PCP Unavailable Encounter [facility] [place](CHERIE) [id number] Date(s): 09/05/15 - 09/05/15 [facility] [address] [place] [address]- Discharge Diagnosis: Unspecified abdominal pain Discharge Disposition: Home Attending Physician: Alan Conde MD Vital Signs Most recent to 1 2 oldest [Reference Range]: Height 167.64 cm (09/05/15 12:53 PM) Temperature Oral 98.3 DegF 98.7 DegF [96.4-99.1 DegF] (09/05/15 4:26 PM) (09/05/15 12:53 PM) Blood Pressure 118/79 mmHg 119/78 mmHg [90-140/60-90 mmHg] (09/05/15 4:26 PM) (09/05/15 12:53 PM) Respiratory Rate 20 BRMIN 20 BRMIN [14-20 BRMIN] (09/05/15 4:26 PM) (09/05/15 12:53 PM) Peripheral Pulse 73 bpm 75 bpm Rate [60-100 bpm] (09/05/15 4:26 PM) (09/05/15 12:53 PM) Weight 104.545 kg (09/05/15 12:53 PM) Body Mass Index 37.2 m2 (09/05/15 12:53 PM) Problem List Condition Effective Dates Status Health Status Informant HTN - Resolved Hypertension(Confirm ed) Mitral valve Resolved prolapse(Confirmed) Allergies, Adverse Reactions, Alerts Substance Reaction Severity Status NKDA Active Medications Dilaudid 0.5 mg, Route: IVP, ONCE, Dosing Weight 104.545, kg, Priority: STAT, Start date: 09/05/15 15:12:00 CDT, Stop date: 09/05/15 15:12:00 CDT Start Date: 09/05/15 Stop Date: 09/05/15 Status: Completed morphine Sulfate 4 mg, Route: IVP, ONCE, Dosing Weight 104.545, kg, Start date: 09/05/15 13:55:00 CDT, Stop date: 09/05/15 13:55:00 CDT Start Date: 09/05/15 Stop Date: 09/05/15 Status: Completed NS (Bolus) IV 1,000 mL, 1,000 ml/hr, Infuse Over: 1 hr, Route: IV, ONCE, Priority: STAT, Dosin g Weight 104.545 kg, Start date: 09/05/15 13:55:00 CDT, Duration: 1 doses or noman es, Stop date: 09/05/15 13:55:00 CDT Start Date: 09/05/15 Stop Date: 09/05/15 Status: Completed Saline Flush 0.9% 10 mL, Route: IVP, Drug Form: INJ, Dosing Weight 104.545, kg, PRN, PRN Line Flus h, Start date: 09/05/15 12:43:00 CDT, Duration: 30 day, Stop date: 10/05/15 12:4 2:00 CDT Notes: (Same as: BD Posiflush) Start Date: 09/05/15 Stop Date: 09/05/15 Status: Discontinued Tylenol with Codeine #3 oral tablet 1 - 2 tab, PO, Q4H, PRN Pain, X 5 day, # 24 tab, 0 Refill(s) Start Date: 09/05/15 Stop Date: 09/10/15 Status: Ordered Zofran 4 mg, Route: IVP, Drug form: INJ, ONCE, Dosing Weight 104.545, kg, Priority: STA T, Start date: 09/05/15 13:55:00 CDT, Stop date: 09/05/15 13:55:00 CDT Start Date: 09/05/15 Stop Date: 09/05/15 Status: Completed Zofran ODT 4 mg oral tablet, disintegrating 4 mg=1 tab, PO, BID, PRN Nausea and Vomiting, Dissolve tab under tongue, X 4 day , # 8 tab, 0 Refill(s) Start Date: 09/05/15 Stop Date: 09/09/15 Status: Ordered Results ELECTROLYTES Most recent to 1 oldest [Reference Range]: Sodium Lvl [135-145 138 mEq/L mEq/L] (09/05/15 2:10 PM) Potassium Lvl 3.8 mEq/L [3.5-5.1 mEq/L] (09/05/15 2:10 PM) Chloride Lvl [95-109 103 mEq/L mEq/L] (09/05/15 2:10 PM) CO2 [24-32 mEq/L] 28 mEq/L (09/05/15 2:10 PM) AGAP [10.0-20.0 10.8 mEq/L mEq/L] (09/05/15 2:10 PM) CHEM PANEL Most recent to 1 oldest [Reference Range]: Creatinine Lvl 0.93 mg/dL [0.50-1.40 mg/dL] (09/05/15 2:10 PM) eGFR 88 mL/min/1.73m2 1 *NA* (09/05/15 2:10 PM) BUN [7-22 mg/dL] 10 mg/dL (09/05/15 2:10 PM) B/C Ratio [6-25] 11 (09/05/15 2:10 PM) Glucose Lvl [70-99 81 mg/dL mg/dL] (09/05/15 2:10 PM) Total Protein 8.2 g/dL [6.4-8.4 g/dL] (09/05/15 2:10 PM) Albumin Lvl [3.5-5.0 3.9 g/dL g/dL] (09/05/15 2:10 PM) Globulin [2.0-4.0 4.3 g/dL g/dL] *HI* (09/05/15 2:10 PM) A/G Ratio [0.7-1.6] 0.9 (09/05/15 2:10 PM) Calcium Lvl 8.9 mg/dL [8.5-10.5 mg/dL] (09/05/15 2:10 PM) ALT [0-65 unit/L] 20 unit/L (09/05/15 2:10 PM) AST [0-37 unit/L] 12 unit/L (09/05/15 2:10 PM) Alk Phos [39-136 52 unit/L unit/L] (09/05/15 2:10 PM) Bili Total [0.2-1.3 0.4 mg/dL mg/dL] (09/05/15 2:10 PM) Lipase Lvl [73-393 181 unit/L unit/L] (09/05/15 2:10 PM) 1Result Comment: The eGFR is calculated using [...] be mul tiplied by the estimated BMI. ENDOCRINOLOGY Most recent to 1 oldest [Reference Range]: S Preg [Negative] Negative *NA* (09/05/15 2:10 PM) URINE AND STOOL Most recent to 1 oldest [Reference Range]: UA Turbidity [Clear] Clear (09/05/15 2:10 PM) UA Color Ltyellow *NA* (09/05/15 2:10 PM) UA pH [5.0-8.0] 7.0 (09/05/15 2:10 PM) UA Spec Grav 1.008 [<=1.030] (09/05/15 2:10 PM) UA Glucose [Negative Negative mg/dL mg/dL] *NA* (09/05/15 2:10 PM) UA Blood [Negative] Negative (09/05/15 2:10 PM) UA Ketones [Negative Negative mg/dL mg/dL] *NA* (09/05/15 2:10 PM) UA Protein [Negative Negative mg/dL mg/dL] (09/05/15 2:10 PM) UA Urobilinogen <=1.0 mg/dL [0.1-1.0 mg/dL] *NA* (09/05/15 2:10 PM) UA Bili [Negative] Negative *NA* (09/05/15 2:10 PM) UA Leuk Est Negative [Negative] (09/05/15 2:10 PM) UA Nitrite Negative [Negative] (09/05/15 2:10 PM) UA WBC [0-5 /HPF] <1 /HPF (09/05/15 2:10 PM) UA RBC [0-2 /HPF] <1 /HPF (09/05/15 2:10 PM) UA Sq Epi [Few /LPF] Occasional /LPF *NA* (09/05/15 2:10 PM) HEMATOLOGY Most recent to 1 oldest [Reference Range]: WBC [3.7-10.4 K/CMM] 6.4 K/CMM (09/05/15 2:10 PM) RBC [4.20-5.40 4.15 M/CMM M/CMM] *LOW* (09/05/15 2:10 PM) Hgb [12.0-16.0 g/dL] 12.0 g/dL (09/05/15 2:10 PM) Hct [36.0-48.0 %] 36.4 % (09/05/15 2:10 PM) MCV [80.0-98.0 fL] 87.8 fL (09/05/15 2:10 PM) MCH [27.0-31.0 pg] 28.9 pg (09/05/15 2:10 PM) MCHC [32.0-36.0 32.9 g/dL g/dL] (09/05/15 2:10 PM) RDW [11.5-14.5 %] 13.7 % (09/05/15 2:10 PM) Platelet [133-450 225 K/CMM K/CMM] (09/05/15 2:10 PM) MPV [7.4-10.4 fL] 9.1 fL (09/05/15 2:10 PM) Segs [45.0-75.0 %] 45.4 % (09/05/15 2:10 PM) Lymphocytes 38.7 % [20.0-40.0 %] (09/05/15 2:10 PM) Monocytes [2.0-12.0 9.5 % %] (09/05/15 2:10 PM) Eosinophils [0.0-4.0 5.5 % %] *HI* (09/05/15 2:10 PM) Basophils [0.0-1.0 0.9 % %] (09/05/15 2:10 PM) Segs-Bands # 2.9 K/CMM [1.5-8.1 K/CMM] (09/05/15 2:10 PM) Lymphocytes # 2.5 K/CMM [1.0-5.5 K/CMM] (09/05/15 2:10 PM) Monocytes # [0.0-0.8 0.6 K/CMM K/CMM] (09/05/15 2:10 PM) Eosinophils # 0.4 K/CMM [0.0-0.5 K/CMM] (09/05/15 2:10 PM) Basophils # [0.0-0.2 0.1 K/CMM K/CMM] (09/05/15 2:10 PM) Immunizations No data available for this section Procedures No data available for this section Social History Social History Type Response Smoking Status Never smoker; Exposure to Tobacco Smoke None; Cigarette Smoking Last 365 Days No; Reg Smoking Cessation Counseling No Assessment and Plan No data available for this section
--- OUTSIDE RECORDS SUMMARY | 2018-08-06 10:05 | XMS REPORT | Summary of Care ---
Author Author [facility] Organization [facility] Address Unknown Phone Unavailable Care Team Providers Care Fish Filleter Name Role Phone NONE, None PCP Unavailable Encounter [place](CHERIE) [phone] Date(s): 11/09/15 - 11/10/[address] [facility] [address] [place] [address]- Discharge Disposition: Home Attending Physician: Melvin Mckay MD Admitting Physician: Melvin Mckay MD Vital Signs 1 2 3 Most recent to oldest [Reference Range]: 167.64 cm (11/09/15 2:22 AM) Height 102.955 kg (11/10/15 9:21 AM) Current Weight 98.7 DegF (11/10/15 3:00 PM) 98.8 DegF (11/10/15 11:00 AM) 98.8 DegF (11/10/15 7:00 AM) Temperature Oral [96.4-99.1 DegF] 123/89 mmHg (11/10/15 3:00 PM) 127/89 mmHg (11/10/15 11:00 AM) 121/81 mmHg (11/10/15 7:00 AM) Blood Pressure [90-140/60-90 mmHg] 18 BRMIN (11/10/15 3:00 PM) 18 BRMIN (11/10/15 11:00 AM) 18 BRMIN (11/10/15 8:19 AM) Respiratory Rate [14-20 BRMIN] 74 bpm (11/10/15 3:00 PM) 84 bpm (11/10/15 11:00 AM) 77 bpm (11/10/15 7:00 AM) Peripheral Pulse Rate [60-100 bpm] 96.903 kg (11/09/15 7:48 AM) 104.545 kg (11/09/15 2:22 AM) Weight 37.2 m2 (11/09/15 2:22 AM) Body Mass Index Problem List Condition Effective Dates Status Health Status Informant HTN - Resolved Hypertension(Confirm ed) Mitral valve Resolved prolapse(Confirmed) Allergies, Adverse Reactions, Alerts Substance Reaction Severity Status NKDA Active Medications acetaminophen 650 mg, 2 tab, Route: PO, Drug form: TAB, Q4H, Dosing Weight 96.903, kg, PRN Jta dache 1-5, Start date: 11/09/15 8:03:00 CDT, Duration: 30 day, Stop date: 8:02:00 CDT Notes: Do not exceed 4 gm/day. (Same as: Tylenol) Start Date: 11/09/15 Stop Date: 11/10/15 Status: Discontinued aspirin 325 mg tablet 325 mg, 1 tab, Route: PO, Drug form: TAB, ONCE, Dosing Weight 104.545, kg, Prior ity: STAT, Start date: 11/09/15 2:43:00 CDT, Stop date: 11/09/15 2:43:00 CDT Notes: Take with food. Start Date: 11/09/15 Stop Date: 11/09/15 Status: Completed aspirin 325 mg tablet 325 mg, 1 tab, Route: PO, Drug form: TAB, Daily, Dosing Weight 96.903, kg, Start date: 11/09/15 9:00:00 CDT, Duration: 30 day, Stop date: 12/08/15 9:00:00 CDT Notes: Take with food. Start Date: 11/09/15 Stop Date: 11/10/15 Status: Discontinued Aspirin Enteric Coated 325 mg oral delayed release tablet 325 mg=1 tab, PO, Daily, # 30 tab, 0 Refill(s) Start Date: 11/10/15 Stop Date: 12/10/15 Status: Ordered famotidine 20 mg, Route: IVP, ONCE, Dosing Weight 104.545, kg, Priority: STAT, Start date: 11/09/15 5:39:00 CDT, Stop date: 11/09/15 5:39:00 CDT Start Date: 11/09/15 Stop Date: 11/09/15 Status: Completed famotidine 20 mg oral tablet 20 mg=1 tab, PO, BID, # 60 tab, 0 Refill(s) Start Date: 11/10/15 Stop Date: 12/10/15 Status: Ordered furosemide 20 mg, 1 tab, Route: PO, Drug form: TAB, Daily, Dosing Weight 96.903, kg, Priori ty: Routine, Start date: 11/11/15 9:00:00 CDT, Duration: 30 day, Stop date: 11/17 09/01 9:00:00 CDT Notes: (Same as: Lasix) May cause GI upset. Give with food or milk. Start Date: 11/11/15 Stop Date: 11/10/15 Status: Canceled Heparin - one time bolus for ACS 4,000 unit, Route: IV, Drug form: SOLN, ONCE, Dosing Weight 104.545, kg, Priorit y: STAT, Start date: 11/09/15 5:37:00 CDT, Stop date: 11/09/15 5:37:00 CDT Start Date: 11/09/15 Stop Date: 11/09/15 Status: Completed Lasix 40 mg, 4 mL, Route: IVP, Drug form: INJ, Daily, Dosing Weight 96.903, kg, Priori ty: STAT, Start date: 11/09/15 12:20:00 CDT, Duration: 30 day, Stop date: 9:00:00 CDT Notes: (Same as: Lasix) MEDICATION WASTE Product Size: 40 mgProduct Was giorgio: ___ mg Start Date: 11/09/15 Stop Date: 11/10/15 Status: Discontinued Lasix 40 mg, 4 mL, Route: IVP, Drug form: INJ, ONCE, Dosing Weight 96.903, kg, Priorit y: STAT, Start date: 11/10/15 8:43:00 CDT, Stop date: 11/10/15 8:43:00 CDT Notes: (Same as: Lasix) MEDICATION WASTE Product Size: 40 mgProduct Was giorgio: ___ mg Start Date: 11/10/15 Stop Date: 11/10/15 Status: Completed Lasix 20 mg oral tablet 20 mg=1 tab, PO, Daily, # 30 tab, 0 Refill(s) Start Date: 11/10/15 Stop Date: 12/10/15 Status: Ordered metoprolol extended release 25 mg, 1 tab, Route: PO, Drug form: ERTAB, Daily, Priority: NOW, Start date: 11:06:00 CDT, Duration: 30 day, Stop date: 12/09/15 9:00:00 CDT Notes: (Same as: Toprol XL) Do Not Crush Start Date: 11/09/15 Stop Date: 11/10/15 Status: Discontinued metoprolol tartrate 25 mg, 1 tab, Route: PO, Drug form: TAB, Q12H, Dosing Weight 96.903, kg, Priorit y: Routine, Start date: 11/10/15 21:00:00 CDT, Duration: 30 day, Stop date: 11/17 09/01 9:00:00 CDT Notes: (Same as: Lopressor) Start Date: 11/10/15 Stop Date: 11/10/15 Status: Canceled metoprolol tartrate 25 mg oral tablet 25 mg=1 tab, PO, Q12H, # 60 tab, 0 Refill(s) Start Date: 11/10/15 Stop Date: 12/10/15 Status: Ordered morphine Sulfate 4 mg, 2 mL, Route: IVP, Drug form: INJ, ONCE, Dosing Weight 104.545, kg, Priorit y: STAT, Start date: 11/09/15 2:35:00 CDT, Stop date: 11/09/15 2:35:00 CDT Notes: (Same as:MORPhine Sulfate) Start Date: 11/09/15 Stop Date: 11/09/15 Status: Completed morphine Sulfate 4 mg, 2 mL, Route: IVP, Drug form: INJ, Q2H, Dosing Weight 96.903, kg, PRN Pain Score 7-10, Start date: 11/09/15 8:03:00 CDT, Duration: 30 day, Stop date: 12/08 8:02:00 CDT Notes: (Same as:MORPhine Sulfate) Start Date: 11/09/15 Stop Date: 11/10/15 Status: Discontinued morphine Sulfate 2 mg, 1 mL, Route: IVP, Drug form: INJ, Q2H, Dosing Weight 96.903, kg, PRN Pain Score 4-6, Start date: 11/09/15 8:03:00 CDT, Duration: 30 day, Stop date: 8:02:00 CDT Notes: (Same as:MORPhine Sulfate) Start Date: 11/09/15 Stop Date: 11/10/15 Status: Discontinued nitroglycerin 2% ointment 1 inch, Route: TOP, Drug Form: OINT, Dosing Weight 104.545, kg, ONCE, STAT, Star t date: 11/09/15 2:44:00 CDT, Stop date: 11/09/15 2:44:00 CDT Notes: 1 gram is approximately 1 inch of nitroglycerin ointment (20 mg NTG pe r gram) (Same as:Nitro-Bid) Start Date: 11/09/15 Stop Date: 11/09/15 Status: Completed nitroglycerin 2% ointment 0.5 inch, Route: TOP, Drug Form: OINT, Dosing Weight 96.903, kg, TID, Start date : 11/09/15 12:00:00 CDT, Duration: 30 day, Stop date: 12/09/15 6:00:00 CDT Notes: 1 gram is approximately 1 inch of nitroglycerin ointment (20 mg NTG pe r gram) (Same as:Nitro-Bid) Start Date: 11/09/15 Stop Date: 11/09/15 Status: Canceled nitroglycerin SL Tab 0.4 mg, 1 tab, Route: SL, Drug form: TAB, Q5Min, Dosing Weight 96.903, kg, PRN C hest Pain, Start date: 11/09/15 8:03:00 CDT, Duration: 3 doses or times, Stop da te: Limited # of times Notes: (Same as:Nitroquick, Nitrostat)"Do Not Crush" Sublingual tablet Start Date: 11/09/15 Stop Date: 11/09/15 Status: Discontinued ondansetron 8 mg, 4 mL, Route: IVP, Drug form: INJ, ONCE, Dosing Weight 104.545, kg, Priorit y: STAT, Start date: 11/09/15 2:35:00 CDT, Stop date: 11/09/15 2:35:00 CDT Notes: (Same as: Antonio) MEDICATION WASTE Product Size: 4 mgProduct Was giorgio: ___ mg Start Date: 11/09/15 Stop Date: 11/09/15 Status: Completed ondansetron 4 mg, 1 tab, Route: PO, Drug form: TAB, Q8H, Dosing Weight 96.903, kg, PRN Nause a & Vomiting, Start date: 11/09/15 8:03:00 CDT, Duration: 30 day, Stop date: 12/09/15 8:02:00 CDT Notes: (Same as: Zofran) Start Date: 11/09/15 Stop Date: 11/09/15 Status: Discontinued Pepcid 20 mg, 2 mL, Route: IVP, Drug form: INJ, Q12H, Dosing Weight 96.903, kg, Start d ate: 11/09/15 9:00:00 CDT, Duration: 30 day, Stop date: 12/08/15 21:00:00 CDT Notes: (Same as: Pepcid)Can be dilute in 5-10cc NS IVP: Slow IV push over at le ast 2 minutes. Start Date: 11/09/15 Stop Date: 11/10/15 Status: Discontinued Pepcid 20 mg, 1 tab, Route: PO, Drug form: TAB, BID, Dosing Weight 96.903, kg, Start da te: 11/10/15 17:00:00 CDT, Duration: 30 day, Stop date: 12/10/15 9:00:00 CDT Notes: (Same as: Pepcid) Start Date: 11/10/15 Stop Date: 11/10/15 Status: Discontinued Plavix 75 mg oral tablet 75 mg=1 tab, PO, Daily, # 30 tab, 0 Refill(s) Start Date: 11/10/15 Stop Date: 12/10/15 Status: Ordered remove patch Route: TOP, Drug form: MISC, Q24H, Start date: 11/10/15 0:00:00 CDT, Duration: 3 0 day, Stop date: 12/09/15 0:00:00 CDT Start Date: 11/10/15 Stop Date: 11/10/15 Status: Discontinued Saline Flush 0.9% 10 mL, Route: IVP, Drug Form: INJ, Dosing Weight 104.545, kg, PRN, PRN Line Flus h, Start date: 11/09/15 2:35:00 CDT, Duration: 30 day, Stop date: 12/09/15 2:34: 00 CDT Notes: (Same as: BD Posiflush) Start Date: 11/09/15 Stop Date: 11/10/15 Status: Discontinued Saline Flush 0.9% 10 ml, Route: IVP, Drug Form: INJ, Dosing Weight 96.903, kg, PRN, PRN Line Flush , Start date: 11/09/15 8:03:00 CDT, Duration: 30 day, Stop date: 12/09/15 8:02:0 0 CDT Start Date: 11/09/15 Stop Date: 11/09/15 Status: Deleted Saline Flush 0.9% 10 ml, Route: IVP, Drug Form: INJ, Dosing Weight 96.903, kg, Q12H, Start date: 0 11/09/15 9:00:00 CDT, Duration: 30 day, Stop date: 12/08/15 21:00:00 CDT Notes: Same as: BD Posiflush Sterile Start Date: 11/09/15 Stop Date: 11/10/15 Status: Discontinued Sodium Chloride 0.9% (Bolus) IV 1,000 mL, 2,000 ml/hr, Infuse Over: 30 minutes, Route: IV, 1,000, Drug form: INJ , ONCE, Priority: STAT, Dosing Weight 104.545 kg, Start date: 11/09/15 2:35:00 C DT, Duration: 1 doses or times, Stop date: 11/09/15 2:35:00 CDT Start Date: 11/09/15 Stop Date: 11/09/15 Status: Completed sodium chloride 0.9% 1000 ml INJ 1,000 mL 1,000 mL, Rate: 125 ml/hr, Infuse over: 8 hr, Route: IV, Dosing Weight 104.545 k g, Total Volume: 1,000, Start date: 11/09/15 2:35:00 CDT, Duration: 30 day, Stop date: 12/09/15 2:34:00 CDT Start Date: 11/09/15 Stop Date: 11/09/15 Status: Discontinued temazepam 15 mg, 1 cap, Route: PO, Drug form: CAP, Bedtime, Dosing Weight 96.903, kg, PRN Insomnia, Start date: 11/09/15 8:03:00 CDT, Duration: 30 day, Stop date: 6 8:02:00 CDT Notes: (Same As: Restoril) Start Date: 11/09/15 Stop Date: 11/10/15 Status: Discontinued Tylenol 650 mg, 2 tab, Route: PO, Drug form: TAB, Q6H, Dosing Weight 96.903, kg, PRN Ernesto n Score 1-3, Start date: 11/09/15 8:14:00 CDT, Duration: 30 day, Stop date: 11/17 08/01 8:13:00 CDT Notes: Do not exceed 4 gm/day. (Same as: Tylenol) Start Date: 11/09/15 Stop Date: 11/10/15 Status: Discontinued Zofran 4 mg, 2 mL, Route: IV, Drug form: INJ, Q8H, Dosing Weight 96.903, kg, PRN Nausea , Priority: NOW, Start date: 11/09/15 8:11:00 CDT, Duration: 30 day, Stop date: 12/09/15 8:10:00 CDT Notes: (Same as: Zofran) MEDICATION WASTE Product Size: 4 mgProduct Was giorgio: ___ mg Start Date: 11/09/15 Stop Date: 11/10/15 Status: Discontinued Zofran 4 mg, 1 tab, Route: PO, Drug form: TAB, Q8H, Dosing Weight 96.903, kg, PRN Nause a, Start date: 11/09/15 8:13:00 CDT, Duration: 30 day, Stop date: 12/09/15 8:12: 00 CDT Notes: (Same as: Zofran) Start Date: 11/09/15 Stop Date: 11/10/15 Status: Discontinued Results ELECTROLYTES 1 2 3 Most recent to oldest [Reference Range]: 141 mEq/L (11/10/15 4:57 AM) 137 mEq/L (11/09/15 2:45 AM) Sodium Lvl [135-145 mEq/L] 3.8 mEq/L (11/10/15 4:57 AM) 3.6 mEq/L (11/09/15 2:45 AM) Potassium Lvl [3.5-5.1 mEq/L] 107 mEq/L (11/10/15 4:57 AM) 106 mEq/L (11/09/15 2:45 AM) Chloride Lvl [95-109 mEq/L] 27 mEq/L (11/10/15 4:57 AM) 25 mEq/L (11/09/15 2:45 AM) CO2 [24-32 mEq/L] 10.8 mEq/L (11/10/15 4:57 AM) 9.6 mEq/L *LOW* (11/09/15 2:45 AM) AGAP [10.0-20.0 mEq/L] CHEM PANEL 1 2 3 Most recent to oldest [Reference Range]: 0.87 mg/dL (11/10/15 4:57 AM) 0.77 mg/dL (11/09/15 2:45 AM) Creatinine Lvl [0.50-1.40 mg/dL] 95 mL/min/1.73m2 1 *NA* (11/10/15 4:57 AM) 110 mL/min/1.73m2 2 *NA* (11/09/15 2:45 AM) eGFR 11 mg/dL (11/10/15 4:57 AM) 8 mg/dL (11/09/15 2:45 AM) BUN [7-22 mg/dL] 10 (11/09/15 2:45 AM) B/C Ratio [6-25] 89 mg/dL (11/10/15 4:57 AM) 123 mg/dL *HI* (11/09/15 2:45 AM) Glucose Lvl [70-99 mg/dL] 8.0 g/dL (11/09/15 2:45 AM) Total Protein [6.4-8.4 g/dL] 3.9 g/dL (11/09/15 2:45 AM) Albumin Lvl [3.5-5.0 g/dL] 4.1 g/dL *HI* (11/09/15 2:45 AM) Globulin [2.0-4.0 g/dL] 1.0 (11/09/15 2:45 AM) A/G Ratio [0.7-1.6] 7.9 mg/dL *LOW* (11/10/15 4:57 AM) 8.1 mg/dL *LOW* (11/09/15 2:45 AM) Calcium Lvl [8.5-10.5 mg/dL] 18 unit/L (11/09/15 2:45 AM) ALT [0-65 unit/L] 13 unit/L (11/09/15 2:45 AM) AST [0-37 unit/L] 47 unit/L (11/09/15 2:45 AM) Alk Phos [39-136 unit/L] 0.5 mg/dL (11/09/15 2:45 AM) Bili Total [0.2-1.3 mg/dL] 67 unit/L (11/09/15 2:45 AM) Amylase Lvl [25-115 unit/L] 111 unit/L (11/09/15 2:45 AM) Lipase Lvl [73-393 unit/L] 1Result Comment: The eGFR is calculated using [...] 3 Most recent to oldest [Reference Range]: 172 unit/L (11/09/15 3:02 PM) 179 unit/L (11/09/15 9:09 AM) 163 unit/L (11/09/15 2:45 AM) Total CK [12-191 unit/L] 5.0 ng/mL *HI* (11/09/15 3:02 PM) 5.2 ng/mL *HI* (11/09/15 9:09 AM) 3.5 ng/mL (11/09/15 2:45 AM) CK MB [0.5-3.6 ng/mL] 2.9 *HI* (11/09/15 3:02 PM) 2.9 *HI* (11/09/15 9:09 AM) 2.1 (11/09/15 2:45 AM) CK MB Index [0.0-2.5] 0.77 ng/mL 1 *CRIT* (11/09/15 3:02 PM) 0.73 ng/mL 2 *CRIT* (11/09/15 9:09 AM) 0.35 ng/mL (11/09/15 2:45 AM) Troponin-I [0.00-0.40 ng/mL] 65 pg/mL (11/09/15 2:45 AM) BNP [<=100 pg/mL] 1Result Comment: Critical Result(s) called to Cee Reed at _11/09/2015 16:12 by_AN. Read back OK. 2Result Comment: Critical Result(s) called to Jah Evans at 11/09/2015 09:47 by ttn. Read back OK. Critical Result(s) called to David Velasco in [employer] at 11/09/2015 09:48 by ttn. R ead back OK. LIPIDS 1 2 3 Most recent to oldest [Reference Range]: 2.93 *LOW* (11/10/15 4:57 AM) CHD Risk [3.90-5.80] 135 mg/dL (11/10/15 4:57 AM) Chol [<=199 mg/dL] 88 mg/dL (11/10/15 4:57 AM) Trig [<=149 mg/dL] 46 mg/dL *LOW* (11/10/15 4:57 AM) HDL [>=61 mg/dL] 71 mg/dL (11/10/15 4:57 AM) LDL (Calculated) [<=99 mg/dL] 18 *NA* (11/10/15 4:57 AM) VLDL DRUG SCREEN 1 2 3 Most recent to oldest [Reference Range]: Negative *NA* (11/09/15 1:10 PM) U Amph Scr [Negative] Negative *NA* (11/09/15 1:10 PM) U Nayeli Scr [Negative] Positive *ABN* (11/09/15 1:10 PM) U Benzodia Scr [Negative] Negative *NA* (11/09/15 1:10 PM) U Cocaine Scr [Negative] Positive *ABN* (11/09/15 1:10 PM) U Opiate Scr [Negative] Negative *NA* (11/09/15 1:10 PM) U Phencyc Scr [Negative] Negative *NA* (11/09/15 1:10 PM) U Cannab Scr [Negative] See Note (11/09/15 1:10 PM) UDS Note ENDOCRINOLOGY 1 2 3 Most recent to oldest [Reference Range]: Negative *NA* (11/09/15 2:45 AM) S Preg [Negative] URINE AND STOOL 1 2 3 Most recent to oldest [Reference Range]: Clear (11/09/15 4:41 AM) UA Turbidity [Clear] Ltyellow *NA* (11/09/15 4:41 AM) UA Color 8.0 (11/09/15 4:41 AM) UA pH [5.0-8.0] 1.026 (11/09/15 4:41 AM) UA Spec Grav [<=1.030] Negative mg/dL *NA* (11/09/15 4:41 AM) UA Glucose [Negative mg/dL] Negative (11/09/15 4:41 AM) UA Blood [Negative] Trace mg/dL *ABN* (11/09/15 4:41 AM) UA Ketones [Negative mg/dL] Negative mg/dL (11/09/15 4:41 AM) UA Protein [Negative mg/dL] <=1.0 mg/dL *NA* (11/09/15 4:41 AM) UA Urobilinogen [0.1-1.0 mg/dL] Negative *NA* (11/09/15 4:41 AM) UA Bili [Negative] Negative (11/09/15 4:41 AM) UA Leuk Est [Negative] Negative (11/09/15 4:41 AM) UA Nitrite [Negative] 1 /HPF (11/09/15 4:41 AM) UA WBC [0-5 /HPF] 1 /HPF (11/09/15 4:41 AM) UA RBC [0-2 /HPF] None Seen *NA* (11/09/15 4:41 AM) UA Sq Epi Few /LPF *NA* (11/09/15 4:41 AM) UA Mucus [None Seen /LPF] HEMATOLOGY 1 2 3 Most recent to oldest [Reference Range]: 6.0 K/CMM (11/10/15 4:57 AM) 9.0 K/CMM (11/09/15 2:45 AM) WBC [3.7-10.4 K/CMM] 3.95 M/CMM *LOW* (11/10/15 4:57 AM) 4.07 M/CMM *LOW* (11/09/15 2:45 AM) RBC [4.20-5.40 M/CMM] 11.3 g/dL *LOW* (11/10/15 4:57 AM) 11.6 g/dL *LOW* (11/09/15 2:45 AM) Hgb [12.0-16.0 g/dL] 34.3 % *LOW* (11/10/15 4:57 AM) 35.4 % *LOW* (11/09/15 2:45 AM) Hct [36.0-48.0 %] 86.9 fL (11/10/15 4:57 AM) 86.9 fL (11/09/15 2:45 AM) MCV [80.0-98.0 fL] 28.7 pg (11/10/15 4:57 AM) 28.5 pg (11/09/15 2:45 AM) MCH [27.0-31.0 pg] 33.1 g/dL (11/10/15 4:57 AM) 32.8 g/dL (11/09/15 2:45 AM) MCHC [32.0-36.0 g/dL] 13.9 % (11/10/15 4:57 AM) 13.8 % (11/09/15 2:45 AM) RDW [11.5-14.5 %] 184 K/CMM (11/10/15 4:57 AM) 211 K/CMM (11/09/15 2:45 AM) Platelet [133-450 K/CMM] 9.4 fL (11/10/15 4:57 AM) 9.3 fL (11/09/15 2:45 AM) MPV [7.4-10.4 fL] 39.4 % *LOW* (11/10/15 4:57 AM) 73.9 % (11/09/15 2:45 AM) Segs [45.0-75.0 %] 46.5 % *HI* (11/10/15 4:57 AM) 18.4 % *LOW* (11/09/15 2:45 AM) Lymphocytes [20.0-40.0 %] 9.6 % (11/10/15 4:57 AM) 6.5 % (11/09/15 2:45 AM) Monocytes [2.0-12.0 %] 3.6 % (11/10/15 4:57 AM) 0.4 % (11/09/15 2:45 AM) Eosinophils [0.0-4.0 %] 0.9 % (11/10/15 4:57 AM) 0.8 % (11/09/15 2:45 AM) Basophils [0.0-1.0 %] 2.4 K/CMM (11/10/15 4:57 AM) 6.7 K/CMM (11/09/15 2:45 AM) Segs-Bands # [1.5-8.1 K/CMM] 2.8 K/CMM (11/10/15 4:57 AM) 1.7 K/CMM (11/09/15 2:45 AM) Lymphocytes # [1.0-5.5 K/CMM] 0.6 K/CMM (11/10/15 4:57 AM) 0.6 K/CMM (11/09/15 2:45 AM) Monocytes # [0.0-0.8 K/CMM] 0.2 K/CMM (11/10/15 4:57 AM) Eosinophils # [0.0-0.5 K/CMM] 0.1 K/CMM (11/10/15 4:57 AM) 0.1 K/CMM (11/09/15 2:45 AM) Basophils # [0.0-0.2 K/CMM] 14.2 seconds (11/09/15 2:45 AM) PT [12.0-14.7 seconds] 1.07 (11/09/15 2:45 AM) INR [0.85-1.17] 0.67 ug/mL FEU *NA* (11/09/15 2:45 AM) D-Dimer Immunizations No data available for this section Procedures No data available for this section Social History Social History Type Response Alcohol Current, Type Beer. Frequency: 1-2 times per week. Previous treatment: None. Alcohol use interferes with work or home: No. Smoking Status Never smoker; Exposure to Tobacco Smoke None; Cigarette Smoking Last 365 Days No; Reg Smoking Cessation Counseling No Assessment and Plan Extracted from: Title: Clinical Document Author: Melvin Mckay MD Date: 11/10/15 Progress Note Melvin Mckay M.D. [facility] Admitting diagnosis: NSTEMI Discharge Diagnosis: Normal coronaries; NSTEMI type II, Hypertensive heart disease with heart failure, Pulmonary HTN and Acute on chronic Diastolic HF; hypertensive heart disease with heart failure Other Diagnosis: 1. Hypertension. She does not remember what medications. She follows up with her PCP at [facility]. 2. Obesity. VitalsTmp(F)Tmp(C)[id number] 11/09 15:[id number]---[id number]------ 11/09 11:[id number]---[id number]------ 11/09 08:19 8 21%--- 11/09 08:18 98 21%--- 11/09 07:[id number]---[id number]------ General: No acute distress; Eyes:EOMI Neck: No JVD; no swelling Heart: S1, S2 normal; No murmur, No rub, No gallop Chest: B/L Air Entry +; No wheeze; No crepititions PA: BS+; NT; ND NS: AAOx3; No signs of lateralization Extremities,Lower : No edema; Labs & Diagnostic Work up: Labs (Last four charted values) WBC 6.0(NOV 09)9.0(NOV 08) Hgb L 11.3(NOV 09)L 11.6(NOV 08) Hct L 34.3(NOV 09)L 35.4(NOV 08) Plt 184(NOV 09)211(NOV 08) Na 141(NOV 09)137(NOV 08) K 3.8(NOV 09)3.6(NOV 08) CO2 27(NOV 09)25(NOV 08) Cl 107(NOV 09)106(NOV 08) Cr 0.87(NOV 09)0.77(NOV 08) BUN 11(NOV 09)8(NOV 08) Glucose Random 89(NOV 09)H 123(NOV 08) Ca L 7.9(NOV 09)L 8.1(NOV 08) PT 14.2(NOV 08) INR 1.07(NOV 08) Troponin C 0.77(NOV 08)C 0.73(NOV 08)0.35(NOV 08) CK MB H 5.0(NOV 08)H 5.2(NOV 08)3.5(NOV 08) Total CK 172(NOV 08)179(NOV 08)163(NOV 08) Medications Medications (14) Active Scheduled: (6) aspirin 325 mg TAB 325 mg 1 tab, PO, Daily famotidine 20 mg tab 20 mg 1 tab, PO, BID furosemide 20 mg TAB 20 mg 1 tab, PO, Daily metoprolol tartrate 25 mg TAB 25 mg 1 tab, PO, Q12H nitroglycerin ointment removal 1 remove ointment, TOP, Q24H sodium chloride 0.9% 10ml sterile flush syr BD 10 ml, IVP, Q12H Continuous: (0) PRN: (8) acetaminophen 325 mg TABLET 650 mg 2 tab, PO, Q4H acetaminophen 325 mg TABLET 650 mg 2 tab, PO, Q6H MORPhine sulfate PF 2 mg/ml CARP 2 mg 1 mL, IVP, Q2H MORPhine sulfate PF 2 mg/ml CARP 4 mg 2 mL, IVP, Q2H ondansetron 4 mg TAB 4 mg 1 tab, PO, Q8H ondansetron 4mg/2mL INJ SYRINGE 4 mg 2 mL, IV, Q8H sodium chloride 0.9% 10 ml flush syr BD 10 mL, IVP, PRN temazepam 15 mg CAP 15 mg 1 cap, PO, Bedtime Hospital course : Mrs Winkler was admitted for chest pain. She ruled in for NSTEMI. She underwent coronary angio and had normal coronaries but elevated LVEDp. ECHO showed Diastolic dysfunction with dilated Left atrium, mild-moderate LVH and pulmonary HTN. She did well with diuresis and anti-HTN. She had a right groin US for tenderness that was negative for pseudoaneurysm. She was discharged with following recommendations: Diet: heart healthy Activity: as tolerated Follow up with PCP in 1 week and [facility] specialist in 2 weeks MEDS: per med rec Condition : stable
--- OUTSIDE RECORDS SUMMARY | 2018-08-06 10:05 | XMS REPORT | Summary of Care ---
Author Author [facility] Organization [facility] Address Unknown Phone Unavailable Encounter FLORIAN Storey(CHERIE) [phone] Date(s): 07/05/16 - 07/05/16 [facility] [address] [place] [address]- Discharge Diagnosis: Dizziness and giddiness Discharge Disposition: Home or Self Care Attending Physician: Jackson Nuñez DO Vital Signs Most recent to 1 2 oldest [Reference Range]: Height 170.18 cm (07/05/16 3:09 PM) Temperature Oral 98.9 DegF 98.3 DegF [96.4-99.1 DegF] (07/05/16 7:25 PM) (07/05/16 3:09 PM) Blood Pressure 144/91 mmHg 133/83 mmHg [90-140/60-90 mmHg] *HI* (07/05/16 3:09 PM) (07/05/16 7:25 PM) Respiratory Rate 18 BRMIN 16 BRMIN [14-20 BRMIN] (07/05/16 7:25 PM) (07/05/16 3:09 PM) Peripheral Pulse 64 bpm 79 bpm Rate [60-100 bpm] (07/05/16 7:25 PM) (07/05/16 3:09 PM) Weight 100 kg (07/05/16 3:09 PM) Body Mass Index 34.53 m2 (07/05/16 3:09 PM) Problem List Condition Effective Dates Status Health Status Informant HTN - Resolved Hypertension(Confirm ed) Mitral valve Resolved prolapse(Confirmed) Allergies, Adverse Reactions, Alerts Substance Reaction Severity Status NKDA Active Medications meclizine 50 mg, Route: PO, Drug form: TAB, ONCE, Dosing Weight 100, kg, Priority: STAT, S tart date: 07/05/16 17:33:00 CLIENT ONBOARDING ANALYST, Stop date: 07/05/16 17:33:00 CLIENT ONBOARDING ANALYST Start Date: 07/05/16 Stop Date: 07/05/16 Status: Completed meclizine 25 mg oral tablet 25 mg=1 tab, PO, TID, PRN for dizziness, X 20 day, # 60 tab, 0 Refill(s) Start Date: 07/05/16 Stop Date: 07/25/16 Status: Ordered Results ELECTROLYTES Most recent to 1 oldest [Reference Range]: Sodium Lvl [135-145 138 mEq/L mEq/L] (07/05/16 3:30 PM) Potassium Lvl 3.5 mEq/L [3.5-5.1 mEq/L] (07/05/16 3:30 PM) Chloride Lvl [95-109 105 mEq/L mEq/L] (07/05/16 3:30 PM) CO2 [24-32 mEq/L] 27 mEq/L (07/05/16 3:30 PM) AGAP [10.0-20.0 9.5 mEq/L mEq/L] *LOW* (07/05/16 3:30 PM) CHEM PANEL Most recent to 1 oldest [Reference Range]: Creatinine Lvl 0.86 mg/dL [0.50-1.40 mg/dL] (07/05/16 3:30 PM) eGFR 96 mL/min/1.73m2 1 *NA* (07/05/16 3:30 PM) BUN [7-22 mg/dL] 11 mg/dL (07/05/16 3:30 PM) B/C Ratio [6-25] 13 (07/05/16 3:30 PM) Glucose Lvl [70-99 96 mg/dL mg/dL] (07/05/16 3:30 PM) Total Protein 8.1 g/dL [6.4-8.4 g/dL] (07/05/16 3:30 PM) Albumin Lvl [3.5-5.0 3.9 g/dL g/dL] (07/05/16 3:30 PM) Globulin [2.7-4.2 4.2 g/dL g/dL] (07/05/16 3:30 PM) A/G Ratio [0.7-1.6] 0.9 (07/05/16 3:30 PM) Calcium Lvl 8.2 mg/dL [8.5-10.5 mg/dL] *LOW* (07/05/16 3:30 PM) ALT [0-65 unit/L] 18 unit/L (07/05/16 3:30 PM) AST [0-37 unit/L] 13 unit/L (07/05/16 3:30 PM) Alk Phos [39-136 51 unit/L unit/L] (07/05/16 3:30 PM) Bili Total [0.2-1.3 0.7 mg/dL mg/dL] (07/05/16 3:30 PM) 1Result Comment: The eGFR is calculated [...] tiplied by the estimated BMI. CARDIAC ENZYMES Most recent to 1 oldest [Reference Range]: Total CK [12-191 103 unit/L unit/L] (07/05/16 3:30 PM) CK MB [0.5-3.6 <0.5 ng/mL ng/mL] (07/05/16 3:30 PM) CK MB Index <0.5 [0.0-2.5] (07/05/16 3:30 PM) Troponin-I <0.02 ng/mL [0.00-0.40 ng/mL] (07/05/16 3:30 PM) HEMATOLOGY Most recent to 1 oldest [Reference Range]: WBC [3.7-10.4 K/CMM] 6.3 K/CMM (07/05/16 3:30 PM) RBC [4.20-5.40 4.12 M/CMM M/CMM] *LOW* (2/17/17 3:30 PM) Hgb [12.0-16.0 g/dL] 12.1 g/dL (07/05/16 3:30 PM) Hct [36.0-48.0 %] 35.7 % *LOW* (07/05/16 3:30 PM) MCV [80.0-98.0 fL] 86.6 fL (07/05/16 3:30 PM) MCH [27.0-31.0 pg] 29.4 pg (07/05/16 3:30 PM) MCHC [32.0-36.0 33.9 g/dL g/dL] (07/05/16 3:30 PM) RDW [11.5-14.5 %] 14.5 % (07/05/16 3:30 PM) Platelet [133-450 216 K/CMM K/CMM] (07/05/16 3:30 PM) MPV [7.4-10.4 fL] 9.2 fL (07/05/16 3:30 PM) Segs [45.0-75.0 %] 57.2 % (07/05/16 3:30 PM) Lymphocytes 31.2 % [20.0-40.0 %] (07/05/16 3:30 PM) Monocytes [2.0-12.0 7.9 % %] (07/05/16 3:30 PM) Eosinophils [0.0-4.0 2.9 % %] (07/05/16 3:30 PM) Basophils [0.0-1.0 0.8 % %] (07/05/16 3:30 PM) Segs-Bands # 3.6 K/CMM [1.5-8.1 K/CMM] (07/05/16 3:30 PM) Lymphocytes # 2.0 K/CMM [1.0-5.5 K/CMM] (07/05/16 3:30 PM) Monocytes # [0.0-0.8 0.5 K/CMM K/CMM] (07/05/16 3:30 PM) Eosinophils # 0.2 K/CMM [0.0-0.5 K/CMM] (07/05/16 3:30 PM) PT [12.0-14.7 12.8 seconds seconds] (07/05/16 3:30 PM) INR [0.85-1.17] 0.94 (07/05/16 3:30 PM) PTT [22.9-35.8 32.2 seconds seconds] (07/05/16 3:30 PM) Immunizations No data available for this [...]
--- OUTSIDE RECORDS SUMMARY | 2018-08-06 10:05 | XMS REPORT | Summary of Care ---
Author Organization Unknown Address Unknown Phone Unavailable Care Team Providers Care Pattern Gater Name Role Phone NONE, None PCP Unavailable Encounter [facility] [place]) [phone] Date(s): 02/06/14 - 02/06/14 [facility] [address] Discharge Diagnosis: Ankle pain, left Discharge Disposition: Home Physician Attending: John Carranza MD Reason for Visit LEG PAIN Vital Signs 1 2 3 Most recent to oldest [Reference Range]: 167.64 cm (02/06/14 12:23 PM) Height 98.3 DegF (02/06/14 2:39 PM) 98.4 DegF (02/06/14 1:48 PM) Temperature Oral [96.4-99.1 DegF] 134 mmHg (02/06/14 2:39 PM) 132 mmHg (02/06/14 1:48 PM) 155 mmHg *HI* (02/06/14 12:23 PM) Systolic Blood Pressure [90-140 mmHg] 82 mmHg (02/06/14 2:39 PM) 84 mmHg (02/06/14 1:48 PM) 85 mmHg (02/06/14 12:23 PM) Diastolic Blood Pressure [60-90 mmHg] 16 BRMIN (02/06/14 2:39 PM) 16 BRMIN (02/06/14 1:48 PM) 16 BRMIN (02/06/14 12:23 PM) Respiratory Rate [14-20 BRMIN] 78 bpm (02/06/14 2:39 PM) 70 bpm (02/06/14 1:48 PM) 82 bpm (02/06/14 12:23 PM) Peripheral Pulse Rate [60-100 bpm] 104.545 kg (02/06/14 12:23 PM) Weight 37.2 m2 (02/06/14 12:23 PM) Body Mass Index Problem List Condition Effective Dates Status Health Status Informant HTN - Resolved Hypertension(Confirm ed) Mitral valve Resolved prolapse(Confirmed) Allergies, Adverse Reactions, Alerts Substance Reaction Severity Status NKDA Active Medications acetaminophen-hydrocodone 325 mg-10 mg oral tablet 1 tab, Route: PO, Dosing Weight 104.545, kg, ONCE, STAT, Start date: 02/06/14 13 :30:00, Stop date: 02/06/14 13:30:00 Start Date: 02/06/14 Stop Date: 02/06/14 Status: Completed ibuprofen 800 mg oral tablet 800 mg, PO, Q8H, Pain, Take with food, # 30 tab, 0 Refill(s) Special Instructions: Take with food Start Date: 02/06/14 Stop Date: 02/16/14 Status: Ordered ketorolac 60 mg, Route: IM, Drug form: INJ, ONCE, Dosing Weight 104.545, kg, Priority: STA T, Start date: 02/06/14 13:30:00, Stop date: 02/06/14 13:30:00 Start Date: 02/06/14 Stop Date: 02/06/14 Status: Completed Medications Administered During Your Visit No data available for this section Immunizations No data available for this section
== END 2018-08-06 10:25 | disposition home or self-care (01) ==
LOC: FSED 09:58
DX: R05 Cough (principal); R42 Dizziness and giddiness; I10 Essential (primary) hypertension; J45.909 Unspecified asthma, uncomplicated
CPT/HCPCS: 99282

== ENCOUNTER 2021-05-16 11:20 | Emergency (ER) | payer OTHER ==
[~2021-05-16] VITALS: Ht 177.8 cm; Wt 108.9 kg
[2021-05-16] MEDS ORDERED: TESSALON PERLE100 MG PO (11:44)
[2021-05-16] MEDS ORDERED: PROVENTIL HFA6.7 GM INH (11:44)
== END 2021-05-16 11:52 | disposition home or self-care (01) ==
LOC: FSED 11:23
DX: U07.1 COVID-19 (principal); J40 Bronchitis, not specified as acute or chronic; R05.9 Cough, unspecified; I10 Essential (primary) hypertension
CPT/HCPCS: 99283